=== PATIENT | male | born 1945 | race Caucasian/White ===

== ENCOUNTER → 2019-05-11 15:04 | Outpatient (BNVA) | payer BC, SELFPAY | PROVIDERS: Family Provider Family Medicine; PCP Family Medicine; Visit Provider Orthopaedic Surgery | DX: M17.11 Unilateral primary osteoarthritis, right knee (principal) | CPT/HCPCS: 73560; 73565 ==

== ENCOUNTER 2019-06-20 08:52 | Outpatient (CLI) | payer BC, SELFPAY ==
--- NOTE | 2019-06-20 09:15 | XR_ITS ---
WS: [id number] PROCEDURE: XR chest 2V* [id number] CLINICAL INFORMATION: SHORTNESS OF BREATH COMPARISON: May 02, 2016 FINDINGS: Heart: Cardiomegaly. Lungs: Both lungs are well aerated. Mild chronic emphysematous changes. No acute pulmonary infiltrate s. Bones: Mild thoracic curve convex left. Mild thoracic kyphosis. Ankylosis thoracic spine. XR/XR chest 2V* [id number] IMPRESSION: 1. Stable cardiomegaly. 2. No acute pulmonary infiltrates.
== END 2019-06-20 08:53 | disposition home or self-care (01) ==
PROVIDERS: Family Provider Family Medicine; PCP Family Medicine; Visit Provider Nurse Practitioner Family
DX: R06.02 Shortness of breath (principal); I51.7 Cardiomegaly
CPT/HCPCS: 71046

== ENCOUNTER 2019-07-14 07:52 | Outpatient (CLI) | payer BC, SELFPAY ==
--- NOTE | 2019-07-14 08:04 | USCV_ITS ---
Desmond David Age: 74 Gender: M : 1945 Exam Date: 07/14/2019 08:13 Ordering Phys: Villa Carreno MD Technologist: Elizabeth Horton Exam Location: [facility] [place] Indication: CARDIOMEGALY BP: 161 / 62 HR: 56 Rhythm: Sinus Technical Quality: Adequate MEASUREMENTS (Male / Female) Normal Values 2D ECHO LV Diastolic Diameter PLAX 5.3 cm 4.2 - 5.9 / 3.9 - 5.3 cm LV Systolic Diameter PLAX 3.4 cm IVS Diastolic Thickness 1.1 cm 0.6 - 1.0 / 0.6 - 0.9 cm IVS Systolic Thickness 1.8 cm LVPW Diastolic Thickness 1.1 cm 0.6 - 1.0 / 0.6 - 0.9 cm LVPW Systolic Thickness 1.7 cm LVOT Diameter 2.0 cm LV Ejection Fraction 2D Teich 65.0 % LV Ejection Fraction MOD 2C 64.3 % LV Ejection Fraction 2C AL 66.0 % LA Diameter 3.4 cm LA Width 3.8 cm LA Height 4.6 cm RA Width 2.8 cm RA Height 3.9 cm Aorta at Sinotubular Diameter 3.2 cm M-MODE LV Diastolic Diameter MM 5.8 cm 4.2 - 5.9 / 3.9 - 5.3 cm LV Systolic Diameter MM 3.4 cm LV Ejection Fraction MM Teich 71.6 % IVS Diastolic Thickness MM 1.0 cm 0.6 - 1.0 / 0.6 - 0.9 cm IVS Systolic Thickness MM 1.8 cm LVPW Diastolic Thickness MM 1.1 cm 0.6 - 1.0 / 0.6 - 0.9 cm LVPW Systolic Thickness MM 1.8 cm Aortic Annulus Diameter 3.3 cm LA Ao Ratio MM 1.0 MV E Point Septal Separation 0.5 cm DOPPLER AV Peak Velocity 136.0 cm/s LVOT Peak Velocity 94.0 cm/s AV Area Cont Eq vti 2.5 cm squared AV Area Cont Eq pk 2.3 cm squared MV Area PHT 3.9 cm squared Mitral E to A Ratio 1.3 MV E' Velocity 11.0 cm/s Mitral E to MV E' Ratio 7.9 Mitral E to LV E' Lateral Ratio 8.8 Mitral E to LV E' Septal Ratio 7.3 TV Peak E Velocity 75.0 cm/s Right Atrial Pressure 3.0 mmHg PV Peak Velocity 108.0 cm/s RV Acceleration Time 0.1 s RV Ejection Time 0.4 s RV AcT/ET 0.3 FINDINGS Left Ventricle Normal left ventricular cavity size. Mild left ventricular hypertrophy. Normal left ventricular systolic function. No regional wall motion abnormalities. Grade I/IV diastolic dysfunction (abnormal relaxation filling pattern), normal to mildly elevated filling pressures. Left ventricular ejection fraction is estimated at 65 %. Right Ventricle Normal right ventricular size and systolic function. Right Atrium The right atrium is normal in size. Left Atrium The left atrium is normal in size. Mitral Valve Structurally normal mitral valve. Mild mitral valve regurgitation. Aortic Valve Structurally normal aortic valve without significant sclerosis or stenosis. There is no aortic regurgitation. Tricuspid Valve Structurally normal tricuspid valve without significant stenosis or regurgitation. Pulmonary artery systolic pressure is normal. Pulmonic Valve Pulmonic valve not well visualized. Pericardium Normal pericardium without effusion. Aorta Normal ascending aorta dimension. CONCLUSIONS Normal left ventricular cavity size. Mild left ventricular hypertrophy. Normal left ventricular systolic function. No regional wall motion abnormalities. Grade I/IV diastolic dysfunction (abnormal relaxation filling pattern), normal to mildly elevated filling pressures. Left ventricular ejection fraction is estimated at 65 %. Structurally normal mitral valve. Mild mitral valve regurgitation. There are no prior echocardiogram studies to compare. Dr. Wood Duncan MD (Electronically Signed) Final Date: 14 July 2019 12:34 S
== END 2019-07-14 07:53 | disposition home or self-care (01) ==
PROVIDERS: Family Provider Nurse Practitioner Family; PCP Nurse Practitioner Family; Visit Provider Family Medicine
DX: I51.7 Cardiomegaly (principal); I34.0 Nonrheumatic mitral (valve) insufficiency
CPT/HCPCS: 93306

== ENCOUNTER 2019-10-19 08:48 | Outpatient (CLI) | payer BC, SELFPAY ==
[2019-10-19 09:01] VITALS: BMI 30.7
--- NOTE | 2019-10-19 09:09 | ECG_ITS ---
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 Interpretive Statements NAME OF STUDY: LEXISCAN SESTAMIBI STRESS TEST INDICATION: Chest Pain PROCEDURE: At the baseline, the blood pressure was 197/64 mmHg with a heart rate of 60 bpm. The electrocardiogram showed sinus rhythm with PACs, normal axis. Nonspecific T wave abnormality. The Lexiscan was infused over a period of 20 seconds. A total of 0.4 milligrams of Lexiscan was infused. The stress phase was continued for a total of 5 minutes. Heart rate at the end of the stress phase was 66 bpm with a blood pressure of 185/75 mmHg. The EKG at the peak infusion revealed sinus rhythm with PACs with no significant ST-T wave changes. Sestamibi was injected 20 seconds after the Lexiscan infusion. Blood pressure at the end of the recovery phase was 178/74 mmHg with a heart rate of 64 beats per minute. CONCLUSION: 1. No significant EKG changes with the LexiScan infusion. 2. No LexiScan induced chest pain or cardiac arrhythmia. 3. Normal blood pressure and heart rate response. 4. Sestamibi/sestamibi perfusion scan pending; see separate report. Electronically Signed On 10-19-2019 16:44:45 CDT by Sonia Subramanian M.D. [id number]
--- NOTE | 2019-10-19 09:10 | NMCV_ITS ---
NM christianne perf SPECT r/s* [id number] David Logan Age: 74 Gender: M : 1945 Exam Date: 10/19/2019 10:29 Ordering Phys: Maribel Self NP Technologist: OSKAR Gonzalez Exam Location: [facility] [place] Indications: SOB PRE OP CLEARANCE STRESS TEST Please see separate stress test report in [facility] for full findings IMAGE PROTOCOL Rest/Stress 1 Lexiscan Day Radiopharmaceutical Dose (mCi) Administration Site Administered by Rest: Tc-99m 10.8 IV OSKAR Simmons Sestamibi Stress:Tc-99m 32.4 IV OSKAR Simmons Sestamibi Rest: 19-Oct-2019 60 Discovery 630 Stress: 19-Oct-2019 30 Discovery 630 0.4mg Lexiscan. Images obtained in supine and prone position. SPECT RESULTS Technical Quality: Excellent Raw Data Analysis: Normal Image Corrections: No attenuation or motion correction applied Summed Stress Score: 1 Summed Rest Score: 0 Summed Difference Score: 1 PERFUSION FINDINGS SPECT images demonstrate homogeneous tracer distribution throughout the myocardium. FUNCTIONAL RESULTS (calculated via Gated SPECT) Stress Image LV EF (%): 58 Stress EDV (mL):107 TID: 0.87 Stress ESV (mL):45 FUNCTIONAL FINDINGS: The left ventricle is normal in size. Transient Ischemia Dilatation of 0.87. There is normal left ventricular systolic function. The left ventricular ejection fraction is normal with a value of 58%. There is normal left ventricular wall thickening. Normal end-diastolic and end-systolic volumes. IMPRESSIONS 1. Myocardial perfusion imaging is normal. 2. Overall left ventricular systolic function is normal without regional wall motion abnormalities. 3. The left ventricular ejection fraction is normal with a value of 58%. 4. This study suggests a low likelihood of angiographically significant coronary artery disease. Sonia Subramanian MD (Electronically Signed) Final Date: 19 October 2019 17:53 S
[2019-10-19 11:17] VITALS: BP 185/70; PULSE 72
[2019-10-19] MEDS: regadenoson 0.4 Mg/5 ml Syringe IVP (11:17)
== END 2019-10-19 08:49 | disposition home or self-care (01) ==
LOC: CDL 08:48
PROVIDERS: Family Provider Nurse Practitioner Family; PCP Nurse Practitioner Family; Visit Provider Internal Medicine Cardiovascular Disease
DX: R06.02 Shortness of breath (principal)
CPT/HCPCS: 78452; 93017; A9500; J2785

== ENCOUNTER → 2022-10-19 10:47 | Outpatient (BNVA) | payer MEDICARE, SELFPAY | PROVIDERS: PCP Registered Nurse; Visit Provider Registered Nurse | DX: E11.9 Type 2 diabetes mellitus without complications (principal); I10 Essential (primary) hypertension | CPT/HCPCS: 80053; 80061; 83036; 85025 ==

== ENCOUNTER → 2022-10-20 09:28 | Outpatient (BNVA) | payer MEDICARE, SELFPAY | PROVIDERS: PCP Registered Nurse; Visit Provider Registered Nurse | DX: E11.9 Type 2 diabetes mellitus without complications (principal); I10 Essential (primary) hypertension; Z76.89 Persons encountering health services in other specified circumstances; R46.89 Other symptoms and signs involving appearance and behavior; Z71.3 Dietary counseling and surveillance | CPT/HCPCS: 81000; 82043 ==

== ENCOUNTER 2023-03-08 10:21 | Inpatient (IN) | payer MEDICARE, SELFPAY ==
[2023-03-08] VITALS (23 sets, daily range): BP systolic 119–160; BP diastolic 47–95; PULSE 51–70; RESP 8–21; TEMP 36.3–36.7; O2SAT 94–100; BMI 27.2
[2023-03-08 10:53] LABS: Glucose Point of Care 194 mg/dL (70-110)
[2023-03-08 11:38] LABS: Basophils % 0.3 %; Eosinophils % 0.1 %; Hematocrit 27.7 % (37-53); Lymphocytes # 1.4 10^3/uL (0.8-4.8); Lymphocytes % 10.7 %; Mean Corpuscular HGB Conc 33.2 g/dL (30-55); Mean Corpuscular Hemoglobin 28.8 pg (27-33); Mean Corpuscular Volume 86.8 fl (82-101); Mean Platelet Volume 9.8 fL (7.4-10.4); Monocytes # 0.3 10^3/uL (0.2-0.9); Monocytes % 2.5 %; Neutrophils # 11.49 10^3/uL (1.8-7.7); Neutrophils % 85.4 %; Nucleated Red Blood Cells % 0 %; Platelet Count 322 10^3/cmm (157-399); Red Blood Count 3.19 10^6/uL (3.85-5.65); Red Cell Distribution Width 13.4 % (12.1-15.1); White Blood Count 13.45 10^3/uL (3.29-11.43)
[2023-03-08 12:10] LABS: Alanine Aminotransferase 8 U/L (0-41); Albumin Level 3.9 g/dL (3.5-5.2); Alkaline Phosphatase 70 U/L (40-130); Anion Gap 29.2 (5-19); Aspartate Amino Transferase 9 U/L (0-40); Blood Urea Nitrogen 77 mg/dL (8-23); Calcium 8.9 mg/dL (8.5-10.5); Carbon Dioxide 14 mmol/L (22-29); Chloride 97 mmol/L (98-107); Globulin 3.3 g/dL (1.3-4.6); Glucose 197 mg/dL (65-115); Osmolality Calculated 304 mOsm/kg (285-295); Sodium 133 mmol/L (136-145); Total Bilirubin 0.2 mg/dL (0.15-1.2); Total Protein 7.2 g/dL (6.6-8.7)
[2023-03-08 12:23] LABS: Potassium 7.2 mmol/L (3.5-5.1)
--- NOTE | 2023-03-08 12:33 | ECG_ITS ---
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 Measurements Intervals [place] Rate: 53 P: 68 CT: 279 QRS: -21 QRSD: 98 T: 57 QT: 472 QTc: 447 Interpretive Statements SINUS BRADYCARDIA WITH FIRST DEGREE AV BLOCK BORDERLINE LEFT AXIS DEVIATION [QRS AXIS < -20] No previous ECG available for comparison Electronically Signed On 03-08-2023 13:43:16 LEATHER BELT SHAPER by oSnia Subramanian M.D. [id number]
--- NOTE | 2023-03-08 12:34 | W.ED.WEAKNES ---
HPI - Weakness General: Chief complaint: Weakness Stated complaint: disoriented, has diabetes Time Seen by Provider: 03/08/23 12:34 Source: patient Mode of arrival: ambulatory History of Present Illness: 77-year-old male presents emergency room with family. Patient has a history of diabetes mellitus morning he seemed to be acting rather strangely family thought it was hypoglycemia they were able to get him to recover after he ate however he still generally does not feel well. On arrival here he is awake and alert answers questions properly gives a good history. He is on glimepiride and metformin. He states he is feeling much better he denies chest pain or abdominal pain. He states he has been urinating a lot less than usual. He does not check his blood sugars regularly. Denies any shortness of breath cough vomiting or diarrhea he was nauseous earlier today. MD Complaint: generalized weakness Onset (ago): hour(s) Associated symptoms: Denies chest pain, chills, confusion, melena, decreased appetite, diaphoresis, dysuria, easy bruising, fever(s), headache(s), myalgias, nausea, rash, short of breath, syncope or vomiting Review of Systems Const: Denies: fever(s), chills or diaphoresis Card: Denies: chest pain or syncope Resp: Denies: dyspnea GI: Denies: abdominal pain, nausea, vomiting or melena : Denies: dysuria, urinary frequency or urinary urgency Musc: Denies: neck pain or back pain Skin/Breast: Denies: rash Neuro: Denies: headache(s) or confusion Иван/Lymph: Denies: easy bruising PFSH ED PFSH: Medical History Hypertension Type 2 diabetes mellitus Family History Father Hypertension CAD (coronary artery disease) Heart disease Brother Heart disease Denies family history of Diabetes Clotting disorder Dementia Hyperlipidemia Psychiatric illness Chronic kidney disease (CKD) Suicide Anesthesia complication Bleeding disorder Family history of premature coronary artery disease Lung disease Cancer Stroke Social History Smoking and tobacco/nicotine status: former use of tobacco/nicotine Quit status (tobacco/nicotine): has quit using Year quit tobacco: 1986 Alcohol intake: never Substance/Drug Use: never Adopted: No Caregiver/support person: No Lives independently: No Household members: spouse Marital status: service: No Current occupational status: retired Sexually active: Yes Do you think of yourself as: Straight/Heterosexual Current gender identity: Male Physical Exam Const: COMMON NORMALS: no acute distress GENERAL APPEARANCE: cooperative and comfortable ORIENTATION/CONSCIOUSNESS: Yes awake, Yes oriented to person, Yes oriented to place and Yes oriented to time HENMT: COMMON NORMALS: normocephalic, atraumatic and hearing grossly normal bilaterally HEAD & SCALP: normocephalic and atraumatic Resp: COMMON NORMALS: normal respiratory effort, No retractions, No use of accessory muscles and clear to auscultation bilaterally AUSCULTATION: clear to auscultation bilaterally Cardio: COMMON NORMALS: regular rate, regular rhythm and No murmurs present (Cardio) RATE: regular rate RHYTHM: regular rhythm GI: COMMON NORMALS: Soft to palpation and No hepatosplenomegaly present AUSCULTATION: Yes normoactive bowel sounds PALPATION: Yes Soft to palpation, No Tenderness to palpation present (GI), No Guarding due to palpation present (GI) and Yes No hepatosplenomegaly present Extremity: COMMON NORMALS: normal to inspection, capillary refill normal, no clubbing, cyanosis or edema, no calf tenderness and no pedal edema Neuro: SENSORIUM/ORIENTATION: Yes oriented to person, Yes oriented to place and Yes oriented to time Skin: COMMON NORMALS: no rashes or lesions noted GENERAL SKIN EXAM: no rashes or lesions noted Course Vital Signs: Vital signs: Vital Signs Temperature 97.4 F L 03/08/23 10:43 Pulse Rate 57 L 03/08/23 15:30 Respiratory Rate 18 03/08/23 10:43 Blood Pressure 159/54 03/08/23 15:30 Pulse Oximetry 98 03/08/23 15:30 Oxygen Delivery Me thod Room Air 03/08/23 15:30 MDM - Weakness Medical Decision Making Patient has acute renal failure with severe hyperkalemia. He was treated for his hyperkalemia given IV fluids he has had minimal urine output after several hours of 2 L he only had 50 mils out. He did become hypoglycemic again we are not having him eat because we reported he was having excessive flatus. Dialysis. His blood sugar decreased to 26 he became confused and disoriented resolved immediately after being treated. Medical Records I reviewed the patient's medical records. Lab Data I reviewed the patient's lab results. 03/08/23 11:32 03/08/23 11:32 Laboratory Results WBC 13.45 10^3/uL (3.29-11.43) H 03/08/23 11:32 RBC 3.19 10^6/uL (3.85-5.65) L 03/08/23 11:32 Hgb 9.20 g/dL (11.27-16.99) L 03/08/23 11:32 Hct 27.7 % (37-53) L 03/08/23 11:32 MCV 86.8 fl (82-101) 03/08/23 11:32 MCH 28.8 pg (27-33) 03/08/23 11:32 MCHC 33.2 g/dL (30-55) 03/08/23 11:32 RDW 13.4 % (12.1-15.1) 03/08/23 11:32 Plt Count 322 10^3/cmm (157-399) 03/08/23 11:32 MPV 9.8 fL (7.4-10.4) 03/08/23 11:32 Neut % (Auto) 85.4 % 03/08/23 11:32 Lymph % (Auto) 10.7 % 03/08/23 11:32 [place] % (Auto) 2.5 % 03/08/23 11:32 Eos % (Auto) 0.1 % 03/08/23 11:32 Baso % (Auto) 0.3 % 03/08/23 11:32 Reticulocyte % (Auto) 1.1 % (0.5-2.0) 03/08/23 12:55 Neut # (Auto) 11.49 10^3/uL (1.8-7.7) H 03/08/23 11:32 Lymph # (Auto) 1.4 10^3/uL (0.8-4.8) 03/08/23 11:32 [place] # (Auto) 0.3 10^3/uL (0.2-0.9) 03/08/23 11:32 Eos # (Auto) 0.0 10^3/uL (0.0-0.8) 03/08/23 11:32 Baso # (Auto) 0.0 10^3/uL (0.0-0.1) 03/08/23 11:32 Nucleated RBC % (auto) 0 % 03/08/23 11:32 Nucleated RBCs # 0.0 /100WBC 03/08/23 11:32 PT 13.50 SECONDS (12.1-14.9) 03/08/23 12:37 INR 1.00 (0.8-1.2) 03/08/23 12:37 APTT 35.0 SECONDS (23.9-36.7) 03/08/23 12:37 Specimen Type Arterial 03/08/23 12:42 Sample Site Radial, left 03/08/23 12:42 ABG pH 7.22 (7.35-7.45) L 03/08/23 12:42 ABG pCO2 31.6 mmHg (35-45) L 03/08/23 12:42 ABG pO2 109.0 mmHg (80.0-100.0) H 03/08/23 12:42 ABG PO2/FiO2 Ratio 0 03/08/23 12:42 ABG HCO3 12.9 mmol/L (22-26) L 03/08/23 12:42 ABG O2 Saturation 99.1 03/08/23 12:42 ABG Base Excess -13.7 mmol/L (-2.0-2.0) L 03/08/23 12:42 Ha Test Pos 03/08/23 12:42 A-a O2 Gradient Not Reportable 03/08/23 12:42 Hematocrit 28.5 % (42-52) L 03/08/23 12:42 Hgb O2 Saturation 97.4 % (95-100) 03/08/23 12:42 Carboxyhemoglobin 1.1 %THgb (0.4-20.1) 03/08/23 12:42 Methemoglobin 0.6 % (0.4-1.5) 03/08/23 12:42 Total Hemoglobin 9.3 g/dL (14-18) L 03/08/23 12:42 Sodium 131.0 mmol/L (131-143) 03/08/23 12:42 Potassium 6.2 mmol/L (3.5-5.0) H 03/08/23 12:42 Glucose 168.0 mg/dL (70-115) H 03/08/23 12:42 Ionized Calcium 1.2 mmol/L (1.1-1.4) 03/08/23 12:42 O2 Delivery Device Room air 03/08/23 12:42 FiO2 21.0 % 03/08/23 12:42 Assistant Printer Floor Covering ID Marcela 03/08/23 12:42 Sodium 133 mmol/L (136-145) L 03/08/23 11:32 Potassium 7.2 mmol/L (3.5-5.1) H* 03/08/23 11:32 Chloride 97 mmol/L (98-107) L 03/08/23 11:32 Carbon Dioxide 14 mmol/L (22-29) L 03/08/23 11:32 Anion Gap 29.2 (5-19) H 03/08/23 11:32 BUN 77 mg/dL (8-23) H 03/08/23 11:32 Creatinine 8.4 mg/dL (0.7-1.2) H* 03/08/23 11:32 GFR Calculation Not Reportable 03/08/23 11:32 Glucose 197 mg/dL (65-115) H 03/08/23 11:32 POC Glucose 194 mg/dL (70-110) H 03/08/23 10:46 Estimat Average Glucose 166 03/08/23 12:55 Calculated Osmolality 304 mOsm/kg (285-295) H 03/08/23 11:32 Lactic Acid 6.1 mmol/L (0.5-2.2) H* 03/08/23 12:55 Calcium 8.9 mg/dL (8.5-10.5) 03/08/23 11:32 Magnesium 2.0 mg/dL (1.7-2.3) 03/08/23 12:55 Iron 60 ug/dL (59-158) 03/08/23 12:55 TIBC 274 mcg/dl 03/08/23 12:55 % Saturation 21.8 % (20-50) 03/08/23 12:55 Unsat Iron Binding 214 ug/dL (112-347) 03/08/23 12:55 Ferritin 161 ng/mL (30-400) 03/08/23 12:55 Total Bilirubin 0.2 mg/dL (0.15-1.2) 03/08/23 11:32 AST 9 U/L (0-40) 03/08/23 11:32 ALT 8 U/L (0-41) 03/08/23 11:32 Alkaline Phosphatase 70 U/L (40-130) 03/08/23 11:32 Total Protein 7.2 g/dL (6.6-8.7) 03/08/23 11:32 Albumin 3.9 g/dL (3.5-5.2) 03/08/23 11:32 Globulin 3.3 g/dL (1.3-4.6) 03/08/23 11:32 Lipase 36 U/L (13-60) 03/08/23 12:55 Serum Ketones Negative (Negative) 03/08/23 12:55 All radiology interpretation(s) finalized by discharge Discharge Plan Discharge Admit Provider: Nancy Navas Condition: Stable Coding Level of Care Code ED 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
[2023-03-08 12:53] LABS: ABG PCO2 31.6 mmHg (35-45); ABG PH Result 7.22 (7.35-7.45); Arterial Blood Gas Hematocrit 28.5 % (42-52); Base Excess ABG -13.7 mmol/L (-2.0-2.0); Blood Gas Allen Test Pos; Blood Gas Operator Identificat WALCI; Blood Gas Sample Site Radial, left; Blood Gas Sample Type Arterial; Carboxyhemoglobin 1.1 %THgb (0.4-20.1); HCO3 ABG 12.9 mmol/L (22-26); HGB O2 Sat 97.4 % (95-100); Ionized Calcium Level - ABG 1.2 mmol/L (1.1-1.4); Methemoglobin 0.6 % (0.4-1.5); Oxygen Device ROOM AIR; Oxygen Saturation ABG 99.1; PO2 FiO2 Ratio Arterial Blood 0; Potassium Level - ABG 6.2 mmol/L (3.5-5.0); Total Hemoglobin 9.3 g/dL (14-18)
--- NOTE | 2023-03-08 13:03 | US_ITS ---
WS: [id number] RENAL ULTRASOUND HISTORY: LYNN COMPARISON: None available. TECHNIQUE: 2-D and color Doppler imaging of the kidney submitted. Right kidney: 11.4 cm x 6.5 cm x 7.1 cm. Cortex: 1.2 cm Loss of the corticomedullary differentiation. Renal cortex is mildly thickened and the kidney is hypo echoic. No obstruction or mass. No adjacent fluid. Left kidney: 11.9 cm x 5.5 cm x 6.1 cm. Cortex: 1.3 cm Loss of the normal corticomedullary differentiation. Renal cortex is mildly thickened and hypoechoic. Slightly greater involvement of the superior pole. Aorta: Normal. Urinary Bladder: Not distended. IMPRESSION: 1. Abnormal kidneys. Kidneys are enlarged and hypoechoic without obstruction. Differential includes b ilateral pyelonephritis, lymphoma, acute interstitial/glomerulonephritis. Additional etiologies to co nsider renal vein thrombosis. There is a more focal thickening involving the superior pole of the LEF T kidney. 2. No hydronephrosis.
[2023-03-08] MEDS: sodium bicarbonate 8.4% 1 mEq/mL 50mL Syr 100 MEQ IVP ×2 (13:26→21:27)
[2023-03-08] MEDS: sodium polystyrene sulfonate 15 gm/60 mL Btl 30 GM PO ×2 (13:26→21:27)
[2023-03-08] MEDS: sodium chloride 0.9% 1,000 ML 999 ML IV ×2 (13:27→15:22)
[2023-03-08 13:29] LABS: Lipase 36 U/L (13-60)
--- NOTE | 2023-03-08 13:32 | P.HP_ITS ---
Providers/Chief Complaint Primary Care Provider: ELLIE Asif Chief Complaint: disoriented, has diabetes History of Present Illness David Logan is a 77 year old male with past medical history of osteoarthritis, hypertension, type 2 diabetes mellitus presented to the hospital today for confusion and hypoglycemia. Family noted patient was confused and gave him something to drink. Blood sugar on arrival 194. Blood sugar was not checked at home. Patient was not acting like himself as per family and for suspicion of hypoglycemia they gave him a sugary drink. Patient is on glimepiride and metformin at home. He recently saw Dr. Taylor to establish primary care to obtain refills for his medications. He stated that he was seeing an [facility] previously but does not want to go there anymore. He also has stopped going to see cardiology. Today on arrival labs show sodium 133, potassium 7.2, creatinine 8.4. Lactic acid 6.1. pH 7.22, bicarb 12.9. UA has been requested. WBC 13.45, hemoglobin 9.2. Previously in October when he saw primary care to establish care microalbumin creatinine ratio was 1548, 2+ urine protein, creatinine 1.9, BUN 26, hemoglobin A1c 7.0. Daughters present at bedside. Patient states he has been feeling fine for the most part but lately has been very fatigued. He has been struggling with LE e roldan for past few months. He would like to be DNR/DNI. Denies blood in urine, chest pain, sob, abdominal pain, flank pain. Does endorse some back pain at times. Uses a walker to ambulate. Last urine was 9.30 AM today. Has had low urine output over last few days. Denies a hx of hypercoagulable condition, kidney disease. ED course: On arrival BP 125/60, respirate 18, pulse 51, temperature 97.4, sat urating 99% on room air. Potassium noted to be 7.2. Patient given a liter normal saline bolus, regular insulin 10 units, an amp of bicarb, Kayexalate 30 g, 10 mg albuterol inhalation, calcium chloride 2 g IV push once. Nephrology consulted. ICU bed requested. Renal ultrasound ordered. Medications/Allergies Home Medications Medication Instructions Recorded Confirmed Last Taken Type aspirin 81 mg tablet,delayed 81 mg PO QAM 05/11/19 03/08/2323 History release multivitamin 1 tab PO QAM 05/11/19 03/08/23 03/08/23 History glimepiride 4 mg tablet 4 mg PO BID 90 days #180 tabs 10/19/22 03/08/23 03/08/23 Rx omega 8-ocw-icj-fish oil 1,200 mg 1 cap PO DAILY 10/19/22 03/08/23 03/08/23 History (144 mg-216 mg) capsule (Fish Oil) metformin 500 mg tablet 1,000 mg PO BID 90 days #360 tabs 01/27/23 03/08/23 03/08/23 Rx bisoprolol 2.5 1 tab PO DAILY 03/08/23 03/08/23 03/08/23 History mg-hydrochlorothiazide 6.25 mg tablet calcium carbonate 600 mg calcium 600 mg PO DAILY 03/08/23 03/08/23 03/08/23 History (1,500 mg) tablet (Calcium) garlic 100 mg tablet 100 mg PO DAILY 03/08/23 03/08/23 03/08/23 History rosuvastatin 40 mg tablet 40 mg PO DAILY 03/08/23 03/08/23 03/08/23 History valsartan 320 mg tablet 320 mg PO DAILY 03/08/23 03/08/23 03/08/23 History vitamins A,C,W-ubid-kgebnj 4,296 1 cap PO DAILY 03/08/23 03/08/23 03/08/23 History mcg-226 mg-90 mg capsule (PreserVision AREDS) Allergies Allergy/AdvReac Type Severity Reaction Status Date / Time No Known Allergies Allergy Verified 10/19/22 09:37 PFSH Acute PFSH: Medical History (Updated 03/08/23 @ 14:03 by Nancy Navas MD) Hypertension Type 2 diabetes mellitus Family History Father Hypertension CAD (coronary artery disease) Heart disease Brother Heart disease Denies family history of Diabetes Clotting disorder Dementia Hyperlipidemia Psychiatric illness Chronic kidney disease (CKD) Suicide Anesthesia complication Bleeding disorder Family history of premature coronary artery disease Lung disease Cancer Stroke Social History Smoking and tobacco/nicotine status: former use of tobacco/nicotine Quit status (tobacco/nicotine): has quit using Year quit tobacco: 1986 Alcohol intake: never Substance/Drug Use: never Adopted: No Caregiver/support person: No Lives independently: No Household members: spouse Marital status: service: No Current occupational status: retired Sexually active: Yes Do you think of yourself as: Straight/Heterosexual Current gender identity: Male Vitals/I&O/Wt Last Vital Signs Temp 97.4 F L 03/08/23 10:43 Pulse 51 L 03/08/23 10:43 Resp 18 03/08/23 10:43 BP 125/60 03/08/23 10:43 Pulse Ox 99 03/08/23 10:43 O2 Del Method Room Air 03/08/23 10:43 Weight last 48 hrs Weight 86.183 kg Physical Exam Narrative: General: Alert oriented x3, patient seen laying in bed appearing comfortable HEENT: Normocephalic, atraumatic, EOMI, breathing room air Cardio: Regular rate rhythm, normal S1-S2, Respiratory: Good bilateral air entry, no wheezes no rhonchi appreciated GI: Abdomen soft, nontender, nondistended, bowel sounds + Behavior: Appropriate and cooperative Extremities: Non pitting edema b/l LE upto thighs Data 03/08/23 11:32 03/08/23 11:32 Micro: Microbiology 03/08/23 13:00 Blood Culture - Preliminary Blood SPECIMEN COLLECTED 03/08/23 12:55 Blood Culture - Preliminary Blood SPECIMEN COLLECTED A&P Assessment and plan (1) Type 2 diabetes mellitus: Qualifiers: Diabetes mellitus snf insulin use: without snf use (2) Hypertension: Qualifiers: Hypertension type: essential hypertension Qualified Code(s): I10 - Essential (primary) hypertension (3) Osteoarthritis of right knee: (4) Acute renal failure: (5) Metabolic acidosis: (6) High anion gap metabolic acidosis: (7) Hyperkalemia: (8) Hypoglycemia: (9) Lactic acidosis: (10) Chronic kidney disease: (11) Anuria: Plan #Acute renal failure #Hyperkalemia #Confusion/hypoglycemia prior to arrival #Type 2 diabetes mellitus #High anion gap metabolic acidosis secondary to renal failure #Lactic acidosis #Hypertension #Chronic kidney disease #Anemia possibly 2/2 to chronic disease ? Admit to ICU ? Hold antihypertensives at this time. It seems patient was on amlodipine 10 mg daily, bisoprolol 2.5, hydrochlorothiazide 6.25 daily. ? Hold antihyperglycemic's glimepiride, metformin at this time ? Check renal ultrasound ? Place Hayes catheter. Monitor urine output ? Patient received 1 amp of bicarb in ER. ? Nephrology consulted ? Dialysis catheter to be placed. General surgery consulted ? Patient may require dialysis if does not start to produce urine. Discussed with associate drafter over the phone. ? We will repeat labs at 3:30 PM. Check BMP, magnesium, phosphorus ? Urinalysis has been requested. ? 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 He recently set up primary care with Dr. Taylor in October 2022. It seems he did not follow-up after getting his refills for his medications. Creatinine at that time was 1.9. He possibly had underlying chronic kidney disease secondary to diabetes anna litus and hypertension. ? We will check blood cultures, sputum culture Gram stain ? Repeat lactic acid ? Check CT abdomen pelvis without contrast - Check iron, tibc, ferritin, retic count, occult blood test - Pt will need GN workup as well. Check C3, C4. May need kidney biopsy at some point. Suspicion for nephrotic syndrome. - Start bicarb drip @ 150 cc/hr - Check chest xray DIet: renal diet, low K DNR/DNI - Discssed with pt, his and his 2 daughters. Patient also discussed with them and final decision is to be DNR/DNI. He understands that with no intervention he may pass away naturally. DVT prophylaxis: Heparin subcu twice daily SCDs Attestations Medical Necessity Statement*: Patient will require greater than 2 midnight stay for management of acute renal failure. 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
[2023-03-08 13:36] LABS: Ketone (Acetest) Serum Negative (Negative)
[2023-03-08] MEDS: insulin regular-human 100 units/1 mL 10 UNIT IVP (13:45)
[2023-03-08 13:51] LABS: Lactic Sepsis W/Reflex 6.1 mmol/L (0.5-2.2)
[2023-03-08 14:21] LABS: Reticulocyte % 1.1 % (0.5-2.0)
[2023-03-08 14:33] LABS: Ferritin 161 ng/mL (30-400); Iron 60 ug/dL (59-158); Percent Saturation 21.8 % (20-50); Total Iron Binding Capacity 274 mcg/dl; Unsaturated Iron Binding 214 ug/dL (112-347)
[2023-03-08 14:51] LABS: Reflex Lactate Order REFLEX LACTIC ORDERD
[2023-03-08] MEDS: calcium chloride 10% Syr 10 mL 2 GM IVP (15:22)
--- NOTE | 2023-03-08 15:32 | XR_ITS ---
WS: [id number] PORTABLE CHEST HISTORY: sob COMPARISON: 06/20/2019 Lung volumes are decreased Small layering LEFT pleural effusion is likely. There is capping over the LEFT apex. Hazy attenuation over the LEFT diaphragm. No pneumothorax. Cardiac size: Moderately enlarged cardiac silhouette. Mediastinum/Aorta: Normal mediastinum. No osseous abnormality seen. IMPRESSION: 1. Small layering LEFT pleural effusion suspected. 2. Moderate cardiomegaly.
--- NOTE | 2023-03-08 15:52 | CTR_ITS ---
PROCEDURE INFORMATION: Exam: CT Chest Without Contrast; Diagnostic Exam date and time: 03/08/2023 4:45 PM Age: 77 years old Clinical indication: Other: Renal failure TECHNIQUE: Imaging protocol: Diagnostic computed tomography of the chest without contrast. Radiation optimization: All CT scans at this facility use at least one of these dose optimization techniques: automated exposure control; mA and/or kV adjustment per patient size (includes targeted exams where dose is matched to clinical indication); or iterative reconstruction. REPORTING DATA: Count of CT and Cardiac NM exams in prior 12 months: This patient has received 0 known CTs and 0 known cardiac nuclear medicine studies in the 12 months prior to the current study. COMPARISON: CR XR chest 1V portable [id number] 03/08/2023 3:36 PM RADIATION DOSE METRICS: Total DLP (mGy-cm): 1013 FINDINGS: Lungs: A small benign calcified granuloma left lung base. No pulmonary parenchymal infiltrate or consolidation. No pulmonary parenchymal mass. Pleural spaces: A small layering posterior pleural effusion is seen on the left. This is associated with small amount of subjacent atelectasis left lung base. No pneumothorax is seen. Heart: Nesf-ti-odsvudas cardiomegaly. Extensive coronary artery calcification. Small amount of calcification of the aortic root/aortic valve region. No pericardial effusion. Lymph nodes: Unremarkable. No enlarged lymph nodes. Vasculature: Arteriosclerosis of the thoracic aorta, without findings to indicate aneurysm. Pulmonary arteries appear unremarkable for noncontrast exam. Bones/joints: Mild thoracic dextroscoliosis. Spondylotic or degenerative change of the thoracic spine. Soft tissues: Unremarkable. PROCEDURE INFORMATION: Exam: CT Abdomen And Pelvis Without Contrast Exam date and time: 03/08/2023 4:45 PM Age: 77 years old Clinical indication: Other: Renal failure TECHNIQUE: Imaging protocol: Computed tomography of the abdomen and pelvis without contrast. Radiation optimization: All CT scans at this facility use at least one of these dose optimization techniques: automated exposure control; mA and/or kV adjustment per patient size (includes targeted exams where dose is matched to clinical indication); or iterative reconstruction. REPORTING DATA: Count of CT and Cardiac NM exams in prior 12 months: This patient has received 0 known CTs and 0 known cardiac nuclear medicine studies in the 12 months prior to the current study. COMPARISON: CR XR hip RT 2-3V wo/w pel* [id number] 04/19/2019 9:44 AM RADIATION DOSE METRICS: Total DLP (mGy-cm): 1013 FINDINGS: Liver: Normal. No mass. Gallbladder and bile ducts: Normal. No calcified stones. No ductal dilation. Pancreas: Normal. No ductal dilation. Spleen: Normal. No splenomegaly. Adrenal glands: Normal. No mass. Kidneys and ureters: No urinary tract stone or obstructive uropathy is seen. Bilateral perinephric stranding, which may be age-related with bilateral findings. Correlate with urinalysis otherwise. Kidneys appear unremarkable otherwise for unenhanced exam. Stomach and bowel: Scattered colonic diverticulosis. No CT findings to indicate focal inflammation or diverticulitis. No dilatation of bowel loops or obstruction. No significant or prominent bowel thickening. Appendix: No evidence of appendicitis. Intraperitoneal space: Unremarkable. No free air. No significant fluid collection. No significant ascites. Vasculature: Diffuse atherosclerotic vascular disease of the abdominal aorta and tributaries, without aneurysmal dilatation. This includes at the takeoff of the right renal artery. Lymph nodes: Unremarkable. No enlarged lymph nodes. Urinary bladder: A Hayes catheter is seen within an incompletely distended urinary bladder. Reproductive: Prostate gland is mildly prominent. Bones/joints: Degenerative changes, and particularly lumbar spine. Soft tissues: Bilateral inguinal hernias of fat. Mild diastasis rectus at the umbilicus. CT/[place] [id number] IMPRESSION: 1. A small layering posterior pleural effusion on the left with small amount of subjacent atelectasis left lung base. 2. Kcej-lj-qdqwfazc cardiomegaly with extensive coronary artery calcification. 3. Small benign calcified granuloma left lung base. 4. No acute findings in the chest otherwise. IMPRESSION: 1. Extensive vascular calcification of the abdominal aorta and tributaries, without aneurysmal dilatation. This includes takeoff of the right renal artery. 2. Bilateral perinephric stranding, most likely age related with bilateral findings. Correlate clinically with urinalysis otherwise. Kidneys are otherwise unremarkable for unenhanced exam. 3. Hayes catheter within an incompletely distended urinary bladder. 4. Scattered colonic diverticulosis without CT findings diverticulitis.
[2023-03-08] MEDS: dextrose 50% syringe 50 mL IVP (16:20)
[2023-03-08 16:30] LABS: Estmated Average Glucose 166; Hemoglobin A1C 7.4 % (4.0-6.0)
[2023-03-08 17:02] LABS: Calcium 10.5 mg/dL (8.5-10.5); Chloride 101 mmol/L (98-107); Phosphorus 4.1 mg/dL (2.5-4.5); Sodium 138 mmol/L (136-145)
[2023-03-08 17:05] LABS: Creatinine Urine, Random 91 mg/dL (39-259)
[2023-03-08] MEDS: dextrose 10% 1,000 ML 50 ML IV (17:06)
[2023-03-08 17:10] LABS: Calcium 8.7 mg/dL (8.5-10.5)
[2023-03-08 17:14] LABS: Lactic Acid level (Lactate) 6.1 mmol/L (0.5-2.2)
[2023-03-08] MEDS: sodium bicarbonate 150 MEQ in dextrose 5% 1,000 ML IV (17:16)
--- NOTE | 2023-03-08 17:16 | PC.NURSE ---
AT APPROXIMATELY 1600 NURSE CARMEL DAVE CAME TO THIS NURSE AND STATED THAT THE PT SEEMS CONFUSED AND VERY WEAK WHILE SHE WAS IN THE ROOM. WALDO RN AND VALORIE RN BOTH CAME TO THE BEDSIDE. PT WAS ON A BEDSIDE COMMODE UPON ARRIVAL TO THE ROOM AND APPEARED PALE AND DISORIENTED. AFTER CHECKING BG, IT WAS 26. VERBAL ORDER OF DEXTROSE 50% WAS GIVEN PER JUWAN VILLASENOR. PT GIVEN TWO CONTAINERS OF ORANGE JUICE AND THEN THE ORDERED DEXTROSE. AFTER A FEW MINUTES, PT BG WAS 195. PT VITAL SIGNS WITHIN NORMAL RANGE AT THE TIME.
[2023-03-08 17:20] LABS: Urine Appearance Hazy (CLEAR); Urine Color Straw (Yellow)
[2023-03-08 17:21] LABS: Add Urine Microscopic? YES; Bilirubin Urine Neg (Negative); Blood Urine 2+ (Negative); Glucose Urine UA Norm (Normal); Ketones Urine Negative (Negative); Leukocyte Esterase Urine Negative (Negative); Nitrate Urine Negative (Negative); Protein Urine 3+ (Negative); RBC Urine 0-4 /hpf (0-2); Specific Gravity, Urine 1.015 (1.005-1.030); Squamous Epithelial Cell Urine 0-4 /hpf (0-5); Urobilinogen Urine Norm (Negative); WBC Urine 0-4 /hpf (0-5); pH Urine 5 (5-7)
[2023-03-08 17:22] LABS: Add Urine Culture? No; Amorphous Sediment Urine 3+ /hpf; Bacteria Urine 1+ /hpf; Microalbum Creatinine Ratio Ur 1956 mg/dL (0-20); Microalbumin Random Urine 178 ug/dL (0-20)
[2023-03-08 17:40] LABS: Anion Gap 27.3 (5-19); Blood Urea Nitrogen 77 mg/dL (8-23); Carbon Dioxide 15 mmol/L (22-29); Osmolality Calculated 305 mOsm/kg (285-295); Potassium 5.3 mmol/L (3.5-5.1)
[2023-03-08 17:44] LABS: Glucose 24 mg/dL (65-115)
[2023-03-08 18:07] LABS: Chol HDL Ratio 2.28 mg/dL (1.0-5.00); Cholesterol 82 mg/dL (0-200); Complement C3 127 mg/dL (90-180); HDL Cholesterol 36 mg/dL (60-100); LDL Cholesterol Calculated 23 mg/dL (50-129); LDL HDL Ratio 0.64 RATIO (0.00-3.22); Thyroid Stimulating Hormone 2.95 uIU/mL (0.27-4.20); Triglycerides 117 mg/dL (0-150)
[2023-03-08 18:12] LABS: Glucose Point of Care 102 mg/dL (70-110)
[2023-03-08 18:37] LABS: 25 Hydroxy Vitamin D 29 ng/mL (30-100)
[2023-03-08] MEDS: piperacillin-tazobactam 3.375 GM in sodium chloride 0.9% (plus) 50 ML IV (19:51)
[2023-03-08] MEDS: heparin 5,000 unit/mL INJ 1 mL 5000 UNIT SUBCUT (20:00)
--- NOTE | 2023-03-08 20:37 | P.CONIM_ITS ---
Providers/Reason For Consult Consulting Physician/Specialty*: kommana/Nephrology Reason for Consult*: Acute on CKD Attending Physician: Nancy Navas MD Primary Care Provider: ELLIE Asif History of Present Illness History of Present Illness 77-year-old male with past medical history of hypertension, diabetes, osteoarthritis who was brought to the hospital due to altered mental status and hypoglycemia. Patient reports that he has been having diarrhea with decreased p.o. intake going on for 2 weeks. In the ER patient was noted to be in LYNN with a creatinine of 8.4, potassium was elevated at 7.2 also has elevated lactic acid along with metabolic acidosis. His prior creatinine in October was 1.9. Patient does not follow-up with nephrology as outpatient. He is DNR/DNI. He reports poor appetite fatigue and lower extremity edema. In the ED vital signs are st able he is on room air. Patient received insulin, Kayexalate, dextrose calcium chloride for hyperkalemia and patient now admitted to ICU. UA with 3+ protein, 2+ blood. Renal ultrasound has showed enlarged kidneys, no obstruction . Chest x-ray showed moderate cardiomegaly left pleural effusion. Review of Systems Narrative: OTHER ROS NEGATIVE Medications/Allergies Home Medications Medication Instructions Recorded Confirmed Last Taken Type aspirin 81 mg tablet,delayed 81 mg PO QAM 05/11/19 03/08/23 03/08/23 History release multivitamin 1 tab PO QAM 05/11/19 03/08/23 03/08/23 History glimepiride 4 mg tablet 4 mg PO BID 90 days #180 tabs 10/19/22 03/08/23 03/08/23 Rx omega 8-ydx-nrz-fish oil 1,200 mg 1 cap PO DAILY 10/19/22 03/08/23 03/08/23 History (144 mg-216 mg) capsule (Fish Oil) metformin 500 mg tablet 1,000 mg PO BID 90 days #360 tabs 01/27/23 03/08/23 03/08/23 Rx bisoprolol 2.5 1 tab PO DAILY 03/08/23 03/08/23 03/08/23 History mg-hydrochlorothiazide 6.25 mg tablet calcium carbonate 600 mg calcium 600 mg PO DAILY 03/08/23 03/08/23 03/08/23 History (1,500 mg) tablet (Calcium) garlic 100 mg tablet 100 mg PO DAILY 03/08/23 03/08/23 03/08/23 History rosuvastatin 40 mg tablet 40 mg PO DAILY 03/08/23 03/08/23 03/08/23 History valsartan 320 mg tablet 320 mg PO DAILY 03/08/23 03/08/23 03/08/23 History vitamins A,C,X-ogvw-femqzj 4,296 1 cap PO DAILY 03/08/23 03/08/23 03/08/23 History mcg-226 mg-90 mg capsule (PreserVision AREDS) Allergies Allergy/AdvReac Type Severity Reaction Status Date / Time No Known Allergies Allergy Verified 10/19/22 09:37 Current Medications Generic Name Dose Route Start Last Admin Trade Name Freq PRN Reason Stop Dose Admin Heparin Sodium (Porcine) 5,000 unit 03/08/23 20:00 03/08/23 20:15 Heparin 5,000 Unit/Ml Inj 1 Ml SUBCUT Not Given Q12H OK Sodium Bicarbonate 150 meq/ 1,150 mls @ 150 mls/hr 03/08/23 15:30 03/08/23 17 :16 Dextrose IV 150 mls/hr .Q7H40M OK Administration Dextrose 1,000 mls @ 50 mls/hr 03/08/23 16:30 03/08/23 17:06 D10w IV 50 mls/hr .Q20H OK Administration Piperacillin Sod/Tazobactam 50 mls @ 12.5 mls/hr 03/08/23 19:00 03/08/23 19:51 Sod 3.375 gm/ Sodium Chloride IV 12.5 mls/hr Q12H OK Administration PFSH Acute PFSH: Medical History Hypertension Type 2 diabetes mellitus Family History Father Hypertension CAD (coronary artery disease) Heart disease Brother Heart disease Denies family history of Diabetes Clotting disorder Dementia Hyperlipidemia Psychiatric illness Chronic kidney disease (CKD) Suicide Anesthesia complication Bleeding disorder Family history of premature coronary artery disease Lung disease Cancer Stroke Social History Smoking and tobacco/nicotine status: former use of tobacco/nicotine Quit status (tobacco/nicotine): has quit using Year quit tobacco: 1986 Alcohol intake: never Substance/Drug Use: never Adopted: No Caregiver/support person: No Lives independently: No Household members: spouse Marital status: service: No Current occupational status: retired Sexually active: Yes Do you think of yourself as: Straight/Heterosexual Current gender identity: Male Vitals/I&O/Wt Last Vital Signs Temp 98.0 F 03/08/23 17:00 Pulse 62 03/08/23 20:00 Resp 16 03/08/23 20:00 BP 124/95 03/08/23 20:00 Pulse Ox 97 03/08/23 20:00 O2 Del Method Room Air 03/08/23 18:00 03/08/23 03/08/23 03/08/23 06:59 14:59 22:59 Intake Total 1000 / 1000 Balance 1000 / 1000 Weight last 48 hrs Weight 86.183 kg Physical Exam Narrative: Awake, alert no distress s1s2 rrr per report Lungs clear per report 2+ edema Urinary Catheter Management: Hayes: Cath Placed During This Visit: yes Reason for Continuing Indwelling Catheter: Accurate Measurement of Urinary Output in Critically Ill Patients Urinary Catheter Date of Insertion: 03/08/23 Data 03/08/23 11:32 03/08/23 20:01 Micro: Microbiology 03/08/23 13:00 Blood Culture - Preliminary Blood SPECIMEN COLLECTED 03/08/23 12:55 Blood Culture - Preliminary Blood SPECIMEN COLLECTED A&P Assessment and plan (1) Chronic kidney disease: (2) Acute renal failure: Plan 1. Acute on chronic kidney disease stage 4: Last known creatinine was 1.9 in October 2022. Now has severe LYNN with a creatinine of 8 associated with metabolic acidosis and severe hyperkalemia. -I suspect there is some progression of CKD but also have superimposed prerenal component from recent diarrhea and decreased p.o. intake. We will also do serological work-up for GN given enlarged kidneys on ultrasound. Check CK level -Serologies ordered. If no improvement with volume resuscitation may need renal biopsy -Placed on bicarbonate drip, monitor closely -Patient agreeable for renal replacement therapy if indicated 2. Hyperkalemia: Status post medical management, repeat potassium is 5.3. Continue with low K diet 3. Metabolic acidosis: Continue bicarbonate drip, has lactic acidosis and LYNN 4. History of diabetes: No hypoglycemic, 5. History of hypertension: Blood pressure controlled, holding meds including HCTZ 6. Anemia: Monitor, check iron studies Patient evaluated using virtual cart. Time spent 45 minutes Consult Attestations Medical Necessity Statement: per medicine team Coding Level of Care Code Acute Code for Chg Fwd Diagnoses Chronic kidney disease N18.9 Acute renal failure N17.9
[2023-03-08 20:39] LABS: Anion Gap 28.7 (5-19); Blood Urea Nitrogen 79 mg/dL (8-23); Calcium 9.7 mg/dL (8.5-10.5); Carbon Dioxide 14 mmol/L (22-29); Chloride 97 mmol/L (98-107); Glucose 145 mg/dL (65-115); Osmolality Calculated 304 mOsm/kg (285-295); Potassium 5.7 mmol/L (3.5-5.1); Sodium 134 mmol/L (136-145)
--- NOTE | 2023-03-08 21:46 | P.PCN_ITS ---
Procedure Note: Procedure: Preoperative diagnosis: Acute renal failure requiring emergent dialysis Postoperative diagnosis: Same Procedure: Placement of Mahurkar catheter in the right femoral vein Surgeon: Dr. Vick Dickson, DO Anesthesia: Local Description of procedure: The patient's right groin was prepped and draped in a sterile manner. 5 mL of 1% lidocaine was infiltrated at the site of planned entry, an introducer needle was used to access the right femoral vein. Guidewire was passed through the introducer needle and the introducer needle was removed. Serial dilators were passed over the guidewire after the skin incision was extended using 11 blade and Mahurkar catheter was then passed over the natalya dewire and the guidewire was removed. The catheter was sutured to the skin using 2-0 Ethilon suture. Sterile dressings were applied. Coding Level of Care Code Acute Code for Chg Fwd
--- NOTE | 2023-03-08 21:48 | P.CONIM_ITS ---
Providers/Reason For Consult Consulting Physician/Specialty*: Dr. Vick Dickson, DO/General surgery Reason for Consult*: Temporary hemodialysis catheter placement Attending Physician: Nancy Navas MD Primary Care Provider: ELLIE Asif History of Present Illness History of Present Illness David Logan is a 77 year old male who presents to the hospital with prog ressive weakness and was found to be in acute renal failure. He did not improve adequately with medical management and nephrology requested temporary hemodialysis access for hemodialysis. Review of Systems General: Reports: 10 or more systems reviewed and unremarkable except in HPI and below Medications/Allergies Home Medications Medication Instructions Recorded Confirmed Last Taken Type aspirin 81 mg tablet,delayed 81 mg PO QAM 05/11/19 03/08/23 03/08/23 History release multivitamin 1 tab PO QAM 05/11/19 03/08/23 03/08/23 History glimepiride 4 mg tablet 4 mg PO BID 90 days #180 tabs 10/19/22 03/08/23 03/08/23 Rx omega 7-ddu-hly-fish oil 1,200 mg 1 cap PO DAILY 10/19/22 03/08/23 03/08/23 History (144 mg-216 mg) capsule (Fish Oil) metformin 500 mg tablet 1,000 mg PO BID 90 days #360 tabs 01/27/23 03/08/23 03/08/23 Rx bisoprolol 2.5 1 tab PO DAILY 03/08/23 03/08/23 03/08/23 History mg-hydrochlorothiazide 6.25 mg tablet calcium carbonate 600 mg calcium 600 mg PO DAILY 03/08/23 03/08/23 03/08/23 History (1,500 mg) tablet (Calcium) garlic 100 mg tablet 100 mg PO DAILY 03/08/23 03/08/23 03/08/23 History rosuvastatin 40 mg tablet 40 mg PO DAILY 03/08/23 03/08/23 03/08/23 History valsartan 320 mg tablet 320 mg PO DAILY 03/08/23 03/08/23 03/08/23 History vitamins A,C,S-xway-oxwhyt 4,296 1 cap PO DAILY 03/08/23 03/08/23 03/08/23 History mcg-226 mg-90 mg capsule (PreserVision AREDS) Allergies Allergy/AdvReac Type Severity Reaction Status Date / Time No Known Allergies Allergy Verified 10/19/22 09:37 Current Medications Generic Name Dose Route Start Last Admin Trade Name Gregory PRN Reason Stop Dose Admin Heparin Sodium (Porcine) 5,000 unit 03/08/23 20:00 03/08/23 20:15 Heparin 5,000 Unit/Ml Inj 1 Ml SUBCUT Not Given Q12H OK Sodium Bicarbonate 150 meq/ 1,150 mls @ 150 mls/hr 03/08/23 15:30 03/08/23 17:16 Dextrose IV 150 mls/hr .Q7H40M OK Administration Dextrose 1,000 mls @ 50 mls/hr 03/08/23 16:30 03/08/23 17:06 D10w IV 50 mls/hr .Q20H OK Administration Piperacillin Sod/Tazobactam 50 mls @ 12.5 mls/hr 03/08/23 19:00 03/08/23 19:51 Sod 3.375 gm/ Sodium Chloride IV 12.5 mls/hr Q12H OK Administration PFSH Acute PFSH: Medical History Hypertension Type 2 diabetes mellitus Family History Father Hypertension CAD (coronary artery disease) Heart disease Brother Heart disease Denies family history of Diabetes Clotting disorder Dementia Hyperlipidemia Psychiatric illness Chronic kidney disease (CKD) Suicide Anesthesia complication Bleeding disorder Family history of premature coronary artery disease Lung disease Cancer Stroke Social History Smoking and tobacco/nicotine status: former use of tobacco/nicotine Quit status (tobacco/nicotine): has quit using Year quit tobacco: 1986 Alcohol intake: never Substance/Drug Use: never Adopted: No Caregiver/support person: No Lives independently: No Household members: spouse Marital status: service: No Current occupational status: retired Sexually active: Yes Do you think of yourself as: Straight/Heterosexual Current gender identity: Male Vitals/I&O/Wt Last Vital Signs Temp 97.6 F 03/08/23 21:07 Pulse 62 03/08/23 20:00 Resp 16 03/08/23 20:00 BP 124/95 03/08/23 20:00 Pulse Ox 97 03/08/23 20:00 O2 Del Method Room Air 03/08/23 18:00 03/08/23 03/08/23 03/08/23 06:59 14:59 22:59 Intake Total 1000 / 1000 Balance 1000 / 1000 Weight last 48 hrs Weight 190 lb Physical Exam Narrative: General : Patient is well developed , no acute distress, oriented x3 Head : Normal cephalic, a-traumatic. Ears : Pinnae and external canal are normal. Hearing is normal. Eyes : PERRLA, Sclera and injection are normal. No conjunctival discharge. Nose : Mucous membranes are without erythema. Throat : buccal mucosa is normal, gums are without significant recession or hypertrophy. Lungs : Equal chest rise bilaterally, no use of accessory muscles, trachea is midline. Cor : Rate and rhythm are normal. Abdomen : Soft, ND, NT, no g/r/m Extremities : No edema, no cyanosis or clubbing, dorsalis pedis pulses are present bilaterally, non-tender to palpation of calves. Upper extremities are normal bilaterally. Back : non-tender to palpation, no CVA tenderness. Neuro : CN II - XII intact, Upper and lower extremities have equal and full strength Urinary Catheter Management: Hayes: Cath Placed During This Visit: yes Reason for Continuing Indwelling Catheter: Accurate Measurement of Urinary Output in Critically Ill Patients Urinary Catheter Date of Insertion: 03/08/23 Data 03/08/23 11:32 03/08/23 20:01 Micro: Microbiology 03/08/23 18:50 Occult Blood (FIT) - Final Stool Routine Collection 03/08/23 13:00 Blood Culture - Preliminary Blood SPECIMEN COLLECTED 03/08/23 12:55 Blood Culture - Preliminary Blood SPECIMEN COLLECTED A&P Assessment and plan (1) Acute renal failure: Plan Temporary hemodialysis catheter placement The risks and benefits of the procedure, including but not limited to, bleeding, infection, infection requiring catheter removal antibiotic therapy and repeat surgery, damage to surrounding structures, scar, numbness, pain, pneumothorax requiring thoracostomy tube, were explained to the patient. He is understanding of the risks and wishes to proceed. Procedure was performed in presence of the ICU nurse where a timeout was performed Coding Level of Care Code 54862 Diagnoses Acute renal failure N17.9
[2023-03-08 22:47] LABS: Hepatitis B Surface AB 3.5 (11.5-1000); Hepatitis B Surface Antigen Non-Reactive (Nonreactive)
[2023-03-09] VITALS (20 sets, daily range): BP systolic 112–171; BP diastolic 56–83; PULSE 71–85; RESP 10–22; TEMP 36.8–37.1; O2SAT 84–98
[2023-03-09] MEDS: sodium bicarbonate 150 MEQ in dextrose 5% 1,000 ML IV ×2 (01:33→08:23)
[2023-03-09 04:15] LABS: Basophils % 0.1 %; Eosinophils % 0.3 %; Hematocrit 22.5 % (37-53); Lymphocytes # 1.3 10^3/uL (0.8-4.8); Lymphocytes % 11.9 %; Mean Corpuscular HGB Conc 33.3 g/dL (30-55); Mean Corpuscular Hemoglobin 28.2 pg (27-33); Mean Corpuscular Volume 84.6 fl (82-101); Mean Platelet Volume 10.1 fL (7.4-10.4); Monocytes # 0.8 10^3/uL (0.2-0.9); Monocytes % 7.5 %; Neutrophils # 8.47 10^3/uL (1.8-7.7); Neutrophils % 79.6 %; Nucleated Red Blood Cells % 0 %; Platelet Count 273 10^3/cmm (157-399); Red Blood Count 2.66 10^6/uL (3.85-5.65); Red Cell Distribution Width 13.3 % (12.1-15.1); White Blood Count 10.64 10^3/uL (3.29-11.43)
[2023-03-09 04:33] LABS: ABG PH Result 7.45 (7.35-7.45); Alveolar-Arterial Oxygen Gradi 3.1 mmHg (5-10); Arterial Blood Gas Hematocrit 22.9 % (42-52); Base Excess ABG 4.1 mmol/L (-2.0-2.0); Blood Gas Allen Test Pos; Blood Gas Sample Site Brachial, right; Blood Gas Sample Type Arterial; Carboxyhemoglobin 1.5 %THgb (0.4-20.1); HCO3 ABG 28.5 mmol/L (22-26); HGB O2 Sat 95.3 % (95-100); Ionized Calcium Level - ABG 1.1 mmol/L (1.1-1.4); Methemoglobin 0.7 % (0.4-1.5); Oxygen Saturation ABG 97.4; PO2 ABG 74.1 mmHg (80.0-100.0); PO2 FiO2 Ratio Arterial Blood 0; Potassium Level - ABG 3.1 mmol/L (3.5-5.0); Total Hemoglobin 7.5 g/dL (14-18)
[2023-03-09 04:34] LABS: Alanine Aminotransferase 7 U/L (0-41); Albumin Level 3.1 g/dL (3.5-5.2); Alkaline Phosphatase 54 U/L (40-130); Anion Gap 19.4 (5-19); Aspartate Amino Transferase 10 U/L (0-40); Blood Urea Nitrogen 34 mg/dL (8-23); Calcium 8.7 mg/dL (8.5-10.5); Carbon Dioxide 25 mmol/L (22-29); Chloride 95 mmol/L (98-107); Globulin 2.8 g/dL (1.3-4.6); Glucose 148 mg/dL (65-115); Magnesium 1.8 mg/dL (1.7-2.3); Osmolality Calculated 292 mOsm/kg (285-295); Phosphorus 2.8 mg/dL (2.5-4.5); Potassium 3.4 mmol/L (3.5-5.1); Sodium 136 mmol/L (136-145); Total Bilirubin 0.2 mg/dL (0.15-1.2); Total Protein 5.9 g/dL (6.6-8.7)
[2023-03-09] MEDS: piperacillin-tazobactam 3.375 GM in sodium chloride 0.9% (plus) 50 ML IV ×2 (06:32→18:17)
--- NOTE | 2023-03-09 07:34 | USCV_ITS ---
David Logan Age: 77 Gender: M : 1945 Exam Date: 03/09/2023 08:45 Ordering Phys: Nancy Navas MD Technologist: Raul Olsen [place]am [place] [facility] [place]: chest pain BP: 173 / 67 HR: 81 Rhythm: Sinus Technical Quality: Adequate MEASUREMENTS (Male / Female) Normal Values 2D ECHO LV Diastolic Diameter PLAX 5.1 cm 4.2 - 5.9 / 3.9 - 5.3 cm LV Systolic Diameter PLAX 3.1 cm IVS Diastolic Thickness 1.3 cm 0.6 - 1.0 / 0.6 - 0.9 cm IVS Systolic Thickness 1.6 cm LVPW Diastolic Thickness 1.3 cm 0.6 - 1.0 / 0.6 - 0.9 cm LVPW Systolic Thickness 1.6 cm LVOT Diameter 2.1 cm LV Ejection Fraction 2D Teich 67.8 % LV Ejection Fraction MOD 2C 70.1 % LV Ejection Fraction 2C AL 71.5 % LA Diameter 3.9 cm M-MODE Aortic Annulus Diameter 2.9 cm LA Ao Ratio MM 1.4 MV E Point Septal Separation 1.2 cm DOPPLER AV Peak Velocity 130.0 cm/s LVOT Peak Velocity 98.0 cm/s AV Area Cont Eq vti 2.6 cm squared AV Area Cont Eq pk 2.7 cm squared MV Area PHT 5.0 cm squared Mitral E to A Ratio 0.9 MV E' Velocity 91.0 cm/s Mitral E to LV E' Septal Ratio 13.4 TR Peak Velocity 135.0 cm/s TR Peak Gradient 7.3 mmHg TV Peak E Velocity 119.0 cm/s Right Atrial Pressure 3.0 mmHg Pulmonary Artery Systolic Pressu 10.3 mmHg RV Acceleration Time 0.2 s FINDINGS Left Ventricle Normal LV size and ejection fraction of 67%,( based on contrast echo and MOD). Mild hypokinesia of the basal inferior wall segment. Right Ventricle Possibly of normal size Right Atrium Not visualized well Left Atrium Possibly of normal size Mitral Valve Thickened mitral valve. Aortic Valve Thickened aortic valve. Tricuspid Valve Could not be delineated well Pulmonic Valve Could not be delineated well Pericardium No pericardial effusion. Aorta Normal aortic annulus size. IVC Inferior vena cava not visualized. CONCLUSIONS Normal LV size and ejection fraction of 67%,( based on contrast echo and MOD). Mild hypokinesia of the basal inferior wall segment. The mitral and aortic valves were found to be thickened and nonstenotic Possibly normal RV size Right atrium could not visualized well No pericardial effusion Technically difficult study Dr Timothy Watts MD FAC (Electronically Signed) Final Date: 09 March 2023 20:33 S
--- NOTE | 2023-03-09 07:36 | USCV_ITS ---
David Logan Age: 77 Gender: M : 1945 Exam Date: 03/09/2023 09:13 Ordering Phys: Nancy Navas MD Technologist: Raul Olsen [place]am [place]: [facility] [place]ication: ? renal vein trombus Aortic Velocity @ SMA (cm/s) 91.7 RIGHT KIDNEY LEFT KIDNEY Velocity (cm/s) Velocity (cm/s) Sys/Cook Sys/Cook Resistive Index Resistive Index 76.0 / 5.0 0.93 Proximal Renal Artery 81.0 / 0.8 0.99 79.3 / 0.0 1.00 Mid Renal Artery 57.0 / 0.8 0.99 74.4 / 1.7 0.98 Distal Renal Artery 100.8 / 0.0 1.00 81.0 / 3.3 0.96 Hilar 78.5 / 1.3 0.98 55.4 / 1.7 0.97 Upper Pole 85.9 / 1.7 1.02 83.5 / 0.8 1.01 Mid Pole 85.1 / 0.0 1.00 78.5 / 0.0 1.00 Lower Pole 88.0 / 38.5 0.55 0.90 Renal Aortic Ratio 1.10 Accleration Index (cm/sec2) 3155.0 Hilar 1084.0 0 0 752.00 Upper Pole 2393.0 0 1151.0 Mid Pole 0 1422.0 Lower Pole 1314.0 0 0 112.6 Kidney Length (mm) 115.3 FINDINGS No similar study for comparison. Decrease diastolic velocity, bilateral. No stenosis. Normal ratios. This study is not adequate to exclude renal vein thrombus. CONCLUSIONS Absent bilateral diastolic velocity. Consider vascular renal pathology or prerenal causes, such as cardiovascular disease. Kidneys are not enlarged. This exam is not sufficient to exclude RVT. Dr. Kira Seals DO (Electronically Signed) Final Date: 09 March 2023 10:52 S
[2023-03-09] MEDS: pantoprazole 40 mg SDV IVP (08:23)
[2023-03-09] MEDS: heparin 5,000 unit/mL INJ 1 mL 5000 UNIT SUBCUT ×2 (08:23→20:38)
[2023-03-09 08:42] LABS: Glucose Point of Care 251 mg/dL (70-110)
[2023-03-09] MEDS: perflutren protein-a microsphr 0.22 mg/mL SDV 3 mL IV (09:37)
[2023-03-09 09:39] LABS: Glucose Point of Care 204 mg/dL (70-110)
[2023-03-09] MEDS: hyDRALAzine 20 mg/mL INJ 1 mL 5 MG IVP (09:39)
--- NOTE | 2023-03-09 10:22 | P.PN_ITS ---
Subjective Subjective: Labs worsened yesterday evening. Gen surg placed temp dialsysis catheter pt had dialysis session overnight labs reviewed this am K 3.4, Cr 4.8 Patient confused this AM. Does not know president or the year. Able to state his name however and knows he is in the hospital. Diarrhea reported overnight Pt unable to provide hx of diarrhea at home however he reported to nephrology yesterday that he was having diarrea. i will confirm this from family. hb 7.6 today 50 cc urine output overnight 1800 ml removed at dialysis Vitals/I&O/Wt Last Vital Signs Temp 98.2 F 03/09/23 04:37 Pulse 81 03/09/23 10:03 Resp 10 L 03/09/23 10:03 BP 144/71 03/09/23 10:03 Pulse Ox 94 03/09/23 10:03 O2 Del Method Nasal Cannula 03/09/23 04:37 03/08/23 03/09/23 03/09/23 22:59 06:59 14:59 Intake Total 1500 / 2500 3140.833 / 3140.833 Output Total 1850 / 1850 Balance -350 / 650 3140.833 / 3140.833 Weight last 48 hrs Weight 94.347 kg Weight 97.7 kg Weight 86.183 kg Physical Exam Narrative: General: Alert oriented x3, patient seen laying in bed appearing comfortable HEENT: Normocephalic, atraumatic, EOMI, breathing room air Cardio: Regular rate rhythm, normal S1-S2, Respiratory: Good bilateral air entry, no wheezes no rhonchi appreciated GI: Abdomen soft, nontender, nondistended, bowel sounds + Behavior: Appropriate and cooperative Extremities: Non pitting edema b/l LE upto thighs Right femoral dialysis catheter present, insertion site appears clean, non erythematous Urinary Catheter Management: Hayes: Cath Placed During This Visit: yes Reason for Continuing Indwelling Catheter: Accurate Measurement of Urinary Output in Critically Ill Patients Urinary Catheter Date of Insertion: 03/08/23 Data 03/09/23 11:05 03/09/23 03:45 Micro: Microbiology 03/08/23 18:50 Occult Blood (FIT) - Final Stool Routine Collection 03/08/23 13:00 Blood Culture - Preliminary Blood SPECIMEN COLLECTED 03/08/23 12:55 Blood Culture - Preliminary Blood SPECIMEN COLLECTED A&P Assessment and plan (1) Type 2 diabetes mellitus: 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 #Hyperkalemia - resolved #Confusion/hypoglycemia prior to arrival #Type 2 diabetes mellitus #High anion gap metabolic acidosis secondary to renal failure #Lactic acidosis - at admission #Hypertension #Chronic kidney disease stage 4 #Anemia possibly 2/2 to chronic disease ? Admit to ICU ? Hold antihypertensives at this time. It seems patient was on amlodipine 10 mg daily, bisoprolol 2.5, hydrochlorothiazide 6.25 daily. ? Hold antihyperglycemic's glimepiride, metformin at this time - place on prn hydralazine 5 mg iv q4h ? Check renal ultrasound. 1. Abnormal kidneys. Kidneys are enlarged and hypoechoic without obstruction. Differential includes bilateral pyelonephritis, lymphoma, acute interstitial/glomerulonephritis. Additional etiologies to consider renal vein thrombosis. There is a more focal thickening involving the superior pole of the LEFT kidney. 2. No hydronephrosis. - Re-order renal doppler to r/o RVT. Low probability but cannot be definitavely excluded. Renal parenchymal disease more likely. ? Place Hayes catheter. Monitor urine output. 50 cc output overnight. ? Patient received 1 amp of bicarb in ER. ? Nephrology consulted ? Urinalysis has been requested. ? We will check blood cultures, sputum culture Gram stain. Pending ? Repeat lactic acid ? CT abdomen pelvis without contrast: 1. A small layering posterior pleural effusion on the left with small amount of subjacent atelectasis left lung base. 2. Psve-rt-lkszwfza cardiomegaly with extensive coronary artery calcification. 3. Small benign calcified granuloma left lung base. 4. No acute findings in the chest otherwise.? 1. Extensive vascular calcification of the abdominal aorta and tributaries, without aneurysmal dilatation.? This includes takeoff of the right renal artery. 2. Bilateral perinephric stranding, most likely age related with bilateral findings.? Correlate clinically with urinalysis otherwise.? Kidneys are otherwise unremarkable for unenhanced exam. 3. Hayes catheter within an incompletely distended urinary bladder. 4. Scattered colonic diverticulosis without CT findings diverticulitis.? - Place on empiric zosyn - UA shows: 3+ protein, elevated alb/cr ratio. - Check iron 60, ferritin 161, retic count, occult blood test pending - stop bicarb drip - stop d10 - continue to monitor BG q1h x4 hours then q6h - avoid insulin at this time. BG goal 140-180 post meal at 2 hours - PTH 68, TSH 2.95 Vit D 29 - Continue to monitor in ICU today. May potentially transfer to floor tomorrow. DIet: renal diet, low K DNR/DNI DVT prophylaxis: Heparin subcu twice daily SCDs Attestations Medical Necessity Statement*: Continue management as above. 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
[2023-03-09 11:10] LABS: Glucose Point of Care 228 mg/dL (70-110)
[2023-03-09 11:16] LABS: Glucose Point of Care 195 mg/dL (70-110)
[2023-03-09 11:16] LABS: Glucose Point of Care 26 mg/dL (70-110)
[2023-03-09 11:23] LABS: Hematocrit 21.7 % (37-53)
--- NOTE | 2023-03-09 13:58 | PM.PN ---
Subjective Subjective: doing well s/p Emergent HD last night Medications: Reviewed: Yes Vitals/I&O/Wt Last Vital Signs Temp 98.2 F 03/09/23 04:37 Pulse 82 03/09/23 13:00 Resp 14 03/09/23 13:00 BP 136/61 03/09/23 13:00 Pulse Ox 94 03/09/23 12:07 O2 Del Method Nasal Cannula 03/09/23 04:37 03/08/23 03/09/23 03/09/23 22:59 06:59 14:59 Intake Total 1500 / 2500 3430.833 / 3430.833 Output Total 1850 / 1850 Balance -350 / 650 3430.833 / 3430.833 Weight last 48 hrs Weight 94.347 kg Weight 97.7 kg Weight 86.183 kg Physical Exam Narrative: Awake, alert no distress s1s2 rrr per report Lungs clear per report 2+ edema Urinary Catheter Management: Hayes: Cath Placed During This Visit: yes Reason for Continuing Indwelling Catheter: Accurate Measurement of Urinary Output in Critically Ill Patients Urinary Catheter Date of Insertion: 03/08/23 Data 03/09/23 11:05 03/09/23 03:45 Micro: Microbiology 03/08/23 13:00 Blood Culture - Preliminary Blood NEGATIVE TO DATE 03/08/23 12:55 Blood Culture - Preliminary Blood NEGATIVE TO DATE 03/08/23 18:50 Occult Blood (FIT) - Final Stool Routine Collection A&P Assessment and plan (1) Chronic kidney disease: (2) Acute renal failure: Plan 1. Acute on chronic kidney disease stage 4: Last known creatinine was 1.9 in October 2022. Now has severe LYNN with a creatinine of 8 associated with metabolic acidosis and severe hyperkalemia. -I suspect there is some progression of CKD but also have superimposed prerenal component from recent diarrhea and decreased p.o. intake. We will also do serological work-up for GN . Check CK level - serologies negative so far , s/p emergent HD last night due to hyperkalemia , watch renal fxn closely for recovery , If no recovery , will need Tunnelled catheter placement -s/p bicarbonate drip, monitor closely 2. Hyperkalemia: Status post HD.. Continue with low K diet 3. Metabolic acidosis: S/P bicarbonate drip, has lactic acidosis and LYNN 4. History of diabetes: No hypoglycemic, 5. History of hypertension: Blood pressure controlled, holding meds including HCTZ 6. Anemia: Monitor, check iron studies Patient evaluated using virtual cart. Time spent 45 minutes Attestations Medical Necessity Statement*: per medicine team Coding Level of Care Code Acute Code for g Fwd Diagnoses Chronic kidney disease N18.9 Acute renal failure N17.9
[2023-03-09] MEDS: sodium chloride 0.9% 1,000 ML 100 ML IV (15:04)
[2023-03-09] MEDS: FUROsemide 10 mg/mL SDV 4mL 40 MG IVP (15:07)
[2023-03-09 21:12] LABS: Chloride Urine Random 71 mmol/L; Urine Random Sodium 80 mmol/L
[2023-03-09 21:35] LABS: Glucose Point of Care 184 mg/dL (70-110)
[2023-03-10] VITALS (22 sets, daily range): BP systolic 141–178; BP diastolic 60–83; PULSE 61–83; RESP 3–25; TEMP 36.8–37.5; O2SAT 92–100
[2023-03-10 01:00] LABS: Glucose Point of Care 136 mg/dL (70-110)
[2023-03-10 04:17] LABS: Glucose Point of Care 88 mg/dL (70-110)
[2023-03-10 05:12] LABS: Anion Gap 12.6 (5-19); Blood Urea Nitrogen 41 mg/dL (8-23); Calcium 8.1 mg/dL (8.5-10.5); Carbon Dioxide 31 mmol/L (22-29); Chloride 96 mmol/L (98-107); Glucose 88 mg/dL (65-115); Osmolality Calculated 292 mOsm/kg (285-295); Potassium 3.6 mmol/L (3.5-5.1); Sodium 136 mmol/L (136-145)
[2023-03-10] MEDS: piperacillin-tazobactam 3.375 GM in sodium chloride 0.9% (plus) 50 ML IV ×2 (06:11→18:32)
[2023-03-10 06:28] LABS: Glucose Point of Care 116 mg/dL (70-110)
[2023-03-10 07:58] LABS: Glucose Point of Care 122 mg/dL (70-110)
--- NOTE | 2023-03-10 08:03 | PM.PN ---
Subjective Subjective: UOP Remains low Medications: Reviewed: Yes Vitals/I&O/Wt Last Vital Signs Temp 99.5 F 03/10/23 00:01 Pulse 68 03/10/23 06:39 Resp 6 L 03/10/23 06:39 BP 161/83 03/10/23 06:39 Pulse Ox 93 03/10/23 06:39 O2 Del Method Nasal Cannula 03/09/23 04:37 03/09/23 03/10/23 03/10/23 22:59 06:59 14:59 Intake Total 240 / 3670.833 230 / 3900.833 Output Total 75 / 75 Balance 240 / 3670.833 155 / 3825.833 Weight last 48 hrs Weight 98.43 kg Weight 94.347 kg Weight 97.7 kg Weight 86.183 kg Physical Exam Narrative: Awake, alert no distress s1s2 rrr per report Lungs clear per report 2+ edema Urinary Catheter Management: Hayes: Cath Placed During This Visit: yes Reason for Continuing Indwelling Catheter: Accurate Measurement of Urinary Output in Critically Ill Patients Urinary Catheter Date of Insertion: 03/08/23 Data 03/11/23 04:38 03/11/23 04:38 Micro: Microbiology 03/08/23 13:00 Blood Culture - Preliminary Blood NEGATIVE TO DATE 03/08/23 12:55 Blood Culture - Preliminary Blood NEGATIVE TO DATE A&P Assessment and plan (1) Chronic kidney disease: (2) Acute renal failure: Plan 1. Acute on chronic kidney disease stage 4: Last known creatinine was 1.9 in October 2022. Now has severe LYNN with a creatinine of 8 associated with metabolic acidosis and severe hyperkalemia. -I suspect there is some progression of CKD but also have superimposed prerenal component from recent diarrhea and decreased p.o. intake. We will also do serological work-up for GN . Check CK level - serologies negative so far , - s/p emergent HD due to hyperkalemia , no renal recovery so far- HD today and , will need Tunnelled catheter placement 2. Hyperkalemia: Status post HD.. Continue with low K diet 3. Metabolic acidosis: S/P bicarbonate drip, has lactic acidosis and LYNN 4. History of diabetes: No hypoglycemic, 5. History of hypertension: Blood pressure controlled, holding meds including HCTZ 6. Anemia: Monitor,ordered MELLISSA 7. MBD : check PTH, Vit D , and Phos Patient evaluated using virtual cart. Time spent 25 minutes Attestations Medical Necessity Statement*: per medicine team Coding Level of Care Code Acute Code for Chg Fwd Diagnoses Chronic kidney disease N18.9 Acute renal failure N17.9
[2023-03-10] MEDS: pantoprazole 40 mg SDV IVP (08:04)
[2023-03-10] MEDS: heparin 5,000 unit/mL INJ 1 mL 5000 UNIT SUBCUT ×2 (08:04→21:09)
--- NOTE | 2023-03-10 12:09 | PM.PN ---
Subjective Subjective: seen today daughter at bedside pt feeling better today undergoing dialysis at this time Vitals/I&O/Wt Last Vital Signs Temp 98.2 F 03/10/23 09:04 Pulse 78 03/10/23 10:47 Resp 17 03/10/23 10:47 BP 156/71 03/10/23 10:47 Pulse Ox 95 03/10/23 10:47 O2 Del Method Nasal Cannula 03/09/23 04:37 03/09/23 03/10/23 03/10/23 22:59 06:59 14:59 Intake Total 240 / 3670.833 230 / 3900.833 1290 / 1290 Output Total 75 / 75 Balance 240 / 3670.833 155 / 3825.833 1290 / 1290 Weight last 48 hrs Weight 98.43 kg Weight 94.347 kg Weight 97.7 kg Physical Exam Narrative: General: Alert oriented x3, patient seen laying in bed appearing comfortable HEENT: Normocephalic, atraumatic, EOMI, breathing room air Cardio: Regular rate rhythm, normal S1-S2, Respiratory: Good bilateral air entry, no wheezes no rhonchi appreciated GI: Abdomen soft, nontender, nondistended, bowel sounds + Behavior: Appropriate and cooperative Extremities:1+ Non pitting edema b/l LE Right femoral dialysis catheter present, insertion site appears clean, non erythematous Urinary Catheter Management: Hayes: Cath Placed During This Visit: yes Reason for Continuing Indwelling Catheter: Accurate Measurement of Urinary Output in Critically Ill Patients Urinary Catheter Date of Insertion: 03/08/23 Data 03/09/23 11:05 03/10/23 04:10 Micro: Microbiology 03/08/23 13:00 Blood Culture - Preliminary Blood NEGATIVE TO DATE 03/08/23 12:55 Blood Culture - Preliminary Blood NEGATIVE TO DATE A&P Assessment and plan (1) Type 2 diabetes mellitus: Qualifiers: Diabetes mellitus fdc insulin use: without fdc use (2) Hypertension: Qualifiers: Hypertension type: essential hypertension Qualified Code(s): I10 - Essential (primary) hypertension (3) Osteoarthritis of right knee: (4) Acute renal failure: (5) Metabolic acidosis: (6) High anion gap metabolic acidosis: (7) Hyperkalemia: (8) Hypoglycemia: (9) Lactic acidosis: (10) Chronic kidney disease: (11) Anuria: Plan #Acute renal failure, LYNN possible pre-renal component. #Hyperkalemia - resolved #Confusion/hypoglycemia prior to arrival #Type 2 diabetes mellitus #High anion gap metabolic acidosis secondary to renal failure #Lactic acidosis - at admission #Hypertension #Chronic kidney disease stage 4 #Anemia possibly 2/2 to chronic disease ? Hold antihypertensives at this time. It seems patient was on valsartan 320 daily, hydrochlorothiazide 6.25 daily. ? Hold antihyperglycemic's glimepiride, metformin at this time - Restart bisoprolol 2.5 daily ? Renal ultrasound. 1. Abnormal kidneys. Kidneys are enlarged and hypoechoic without obstruction. Differential includes bilateral pyelonephritis, lymphoma, acute interstitial/glomerulonephritis. Additional etiologies to consider renal vein thrombosis. There is a more focal thickening involving the superior pole of the LEFT kidney. 2. No hydronephrosis. - Re-order renal doppler to r/o RVT. Low probability but cannot be definitavely excluded. Renal parenchymal disease more likely. ? Continue Hayes catheter. Monitor urine output. ? Nephrology consulted ? CT abdomen pelvis without contrast: 1. A small layering posterior pleural effusion on the left with small amount of subjacent atelectasis left lung base. 2. [id number]-km-[id number] cardiomegaly with extensive coronary artery calcification. 3. Small benign calcified granuloma left lung base. 4. No acute findings in the chest otherwise.? 1. Extensive vascular calcification of the abdominal aorta and tributaries, without aneurysmal dilatation.? This includes takeoff of the right renal artery. 2. Bilateral perinephric stranding, most likely age related with bilateral findings.? Correlate clinically with urinalysis otherwise.? Kidneys are otherwise unremarkable for unenhanced exam. 3. Hayes catheter within an incompletely distended urinary bladder. 4. Scattered colonic diverticulosis without CT findings diverticulitis.? - Place on empiric zosyn, will complete 7 days - UA shows: 3+ protein, elevated alb/cr ratio. - Check iron 60, ferritin 161, retic count, occult blood test pending - continue to monitor BG AC/HS - avoid insulin at this time. BG goal 140-180 post meal at 2 hours - PTH 68, TSH 2.95 Vit D 29 - Transfer to floor today - CBC pending today Had a long discussion with daughter and patient and updated them of the case in detail. 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
[2023-03-10] MEDS: heparin, porcine 1,000 unit/mL INJ 10 mL 10000 UNIT INTRACATH (12:18)
[2023-03-10 12:37] LABS: Glucose Point of Care 142 mg/dL (70-110)
[2023-03-10 17:13] LABS: Glucose Point of Care 205 mg/dL (70-110)
[2023-03-10] MEDS: insulin lispro 100 unit/1 mL SUBCUT ×2 (18:31→22:15)
[2023-03-10 20:54] LABS: Glucose Point of Care 213 mg/dL (70-110)
[2023-03-11] VITALS (10 sets, daily range): BP systolic 132–171; BP diastolic 66–77; PULSE 68–87; RESP 16–19; TEMP 36.4–36.9; O2SAT 92–96
[2023-03-11 04:58] LABS: Basophils % 0.4 %; Eosinophils # 0.4 10^3/uL (0.0-0.8); Eosinophils % 3.2 %; Hematocrit 22.9 % (37-53); Lymphocytes # 2.1 10^3/uL (0.8-4.8); Lymphocytes % 18.6 %; Mean Corpuscular HGB Conc 32.3 g/dL (30-55); Mean Corpuscular Hemoglobin 28.1 pg (27-33); Mean Corpuscular Volume 87.1 fl (82-101); Mean Platelet Volume 9.6 fL (7.4-10.4); Monocytes # 0.8 10^3/uL (0.2-0.9); Monocytes % 7.6 %; Neutrophils # 7.67 10^3/uL (1.8-7.7); Neutrophils % 69.4 %; Nucleated Red Blood Cells % 0 %; Platelet Count 248 10^3/cmm (157-399); Red Blood Count 2.63 10^6/uL (3.85-5.65); Red Cell Distribution Width 13.8 % (12.1-15.1); White Blood Count 11.05 10^3/uL (3.29-11.43)
[2023-03-11 05:25] LABS: Anion Gap 12.6 (5-19); Blood Urea Nitrogen 23 mg/dL (8-23); Calcium 8.1 mg/dL (8.5-10.5); Carbon Dioxide 29 mmol/L (22-29); Chloride 97 mmol/L (98-107); Glucose 96 mg/dL (65-115); Osmolality Calculated 284 mOsm/kg (285-295); Potassium 3.6 mmol/L (3.5-5.1); Sodium 135 mmol/L (136-145)
[2023-03-11] MEDS: piperacillin-tazobactam 3.375 GM in sodium chloride 0.9% (plus) 50 ML IV ×2 (06:11→18:28)
[2023-03-11 06:45] LABS: Glucose Point of Care 100 mg/dL (70-110)
--- NOTE | 2023-03-11 06:59 | P.PN_ITS ---
Subjective Subjective: s/p HD yesterday Medications: Reviewed: Yes Vitals/I&O/Wt Last Vital Signs Temp 98.2 F 03/11/23 05:43 Pulse 79 03/11/23 06:00 Resp 16 03/11/23 05:43 BP 144/76 03/11/23 05:43 Pulse Ox 93 03/11/23 05:43 O2 Del Method Room Air 03/11/23 05:43 03/10/23 03/10/23 03/11/23 14:59 22:59 06:59 Intake Total 1830 / 1830 480 / 2310 50 / 2360 Output Total 2300 / 2300 100 / 2400 100 / 2500 Balance -470 / -470 380 / -90 -50 / -140 Weight last 48 hrs Weight 96.19 kg Weight 96.3 kg Weight 98.43 kg Physical Exam Narrative: Awake, alert no distress s1s2 rrr per report Lungs clear per report 2+ edema Urinary Catheter Management: Hayes: Cath Placed During This Visit: yes Reason for Continuing Indwelling Catheter: Acute Urinary Retention or Obstruction Urinary Catheter Date of Insertion: 03/08/23 Data 03/11/23 04:38 03/11/23 04:38 A&P Assessment and plan (1) Chronic kidney disease: (2) Acute renal failure: Plan 1. Acute on chronic kidney disease stage 4: Last known creatinine was 1.9 in October 2022. Now has severe LYNN with a creatinine of 8 associated with metabolic acidosis and severe hyperkalemia. -I suspect there is some progression of CKD but also have superimposed prerenal component from recent diarrhea and decreased p.o. intake. We will also do serological work-up for GN . 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 Hyperkalemia: Status post HD.. Continue with low K diet 3. Metabolic acidosis: S/P bicarbonate drip, has lactic acidosis and LYNN 4. History of diabetes: No hypoglycemic, 5. History of hypertension: Blood pressure controlled, holding meds including HCTZ 6. Anemia: Monitor,ordered MELLISSA 7. MBD : check PTH, Vit D , and Phos Patient evaluated using virtual cart. Time spent 25 minutes Attestations Medical Necessity Statement*: per mediicen team Coding Level of Care Code Acute Code for Chg Fwd Diagnoses Chronic kidney disease N18.9 Acute renal failure N17.9
[2023-03-11] MEDS: atorvastatin 40 mg Tablet 80 MG PO (08:39)
[2023-03-11] MEDS: heparin 5,000 unit/mL INJ 1 mL 5000 UNIT SUBCUT ×2 (08:39→20:21)
[2023-03-11] MEDS: pantoprazole 40 mg SDV IVP (10:30)
[2023-03-11 11:32] LABS: Glucose Point of Care 200 mg/dL (70-110)
[2023-03-11] MEDS: insulin lispro 100 unit/1 mL SUBCUT ×3 (11:46→21:01)
--- NOTE | 2023-03-11 11:54 | PM.PN ---
Subjective Subjective: Hospital course appreciated. No acute events overnight. Patient has remained hemodynamically stable and afebrile. Patient in cheerful spirits. Minimal urine output of around 200 cc in last 24 hours. Blood work appreciated. Vitals/I&O/Wt Last Vital Signs Temp 97.6 F 03/11/23 08:00 Pulse 87 03/11/23 08:00 Resp 18 03/11/23 08:00 BP 156/66 03/11/23 08:00 Pulse Ox 93 03/11/23 08:00 O2 Del Method Room Air 03/11/23 08:00 03/10/23 03/11/23 03/11/23 22:59 06:59 14:59 Intake Total 480 / 2310 50 / 2360 50 / 50 Output Total 100 / 2400 100 / 2500 Balance 380 / -90 -50 / -140 50 / 50 Weight last 48 hrs Weight 96.19 kg Weight 96.3 kg Weight 98.43 kg Physical Exam Narrative: General: Alert oriented x3, patient seen laying in bed appearing comfortable HEENT: Normocephalic, atraumatic, EOMI, breathing room air Cardio: Regular rate rhythm, normal S1-S2, Respiratory: Good bilateral air entry, no wheezes no rhonchi appreciated GI: Abdomen soft, nontender, nondistended, bowel sounds + Behavior: Appropriate and cooperative Extremities:1+ Non pitting edema b/l LE Right femoral dialysis catheter present, insertion site appears clean, non erythematous Urinary Catheter Management: Hayes: Cath Placed During This Visit: yes Reason for Continuing Indwelling Catheter: Acute Urinary Retention or Obstruction Urinary Catheter Date of Insertion: 03/08/23 Data 03/11/23 04:38 03/11/23 04:38 A&P Assessment and plan (1) Type 2 diabetes mellitus: Qualifiers: Diabetes mellitus jail insulin use: without jail use (2) Hypertension: Qualifiers: Hypertension type: essential hypertension Qualified Code(s): I10 - Essential (primary) hypertension (3) Osteoarthritis of right knee: (4) Acute renal failure: (5) Metabolic acidosis: (6) High anion gap metabolic acidosis: (7) Hyperkalemia: (8) Hypoglycemia: (9) Lactic acidosis: (10) Chronic kidney disease: (11) Anuria: Plan #Acute renal failure, LYNN possible pre-renal component. #Hyperkalemia - resolved #Confusion/hypoglycemia prior to arrival #Type 2 diabetes mellitus #High anion gap metabolic acidosis secondary to renal failure #Lactic acidosis - at admission #Hypertension #Chronic kidney disease stage 4 #Anemia possibly 2/2 to chronic disease ? Hold antihypertensives at this time. It seems patient was on valsartan 320 daily, hydrochlorothiazide 6.25 daily. ? Hold antihyperglycemic's glimepiride, metformin at this time - Restart bisoprolol 2.5 daily ? Renal ultrasound. 1. Abnormal kidneys. Kidneys are enlarged and hypoechoic without obstruction. Differential includes bilateral pyelonephritis, lymphoma, acute interstitial/glomerulonephritis. Additional etiologies to consider renal vein thrombosis. There is a more focal thickening involving the superior pole of the LEFT kidney. 2. No hydronephrosis. - Re-order renal doppler to r/o RVT. Low probability but cannot be definitavely excluded. Renal parenchymal disease more likely. ? Continue Hayes catheter. Monitor urine output. ? Nephrology consulted ? CT abdomen pelvis without contrast: 1. A small layering posterior pleural effusion on the left with small amount of subjacent atelectasis left lung base. 2. Myor-ot-[id number] cardiomegaly with extensive coronary artery calcification. 3. Small benign calcified granuloma left lung base. 4. No acute findings in the chest otherwise.? 1. Extensive vascular calcification of the abdominal aorta and tributaries, without aneurysmal dilatation.? This includes takeoff of the right renal artery. 2. Bilateral perinephric stranding, most likely age related with bilateral findings.? Correlate clinically with urinalysis otherwise.? Kidneys are otherwise unremarkable for unenhanced exam. 3. Hayes catheter within an incompletely distended urinary bladder. 4. Scattered colonic diverticulosis without CT findings diverticulitis.? - Place on empiric zosyn, will complete 7 days - UA shows: 3+ protein, elevated alb/cr ratio. - Check iron 60, ferritin 161, retic count, occult blood test pending - continue to monitor BG AC/HS - avoid insulin at this time. BG goal 140-180 post meal at 2 hours - PTH 68, TSH 2.95 Vit D 29 - Transfer to floor today - CBC pending today Had a long discussion with daughter and patient and updated them of the case in detail. DIet: renal diet, low K Plan for today: Monitor renal functions daily. Appreciate nephrology recommendations. High likelihood patient would need long-term dialysis given extremely slow renal recovery with oliguria. Plan for now is to continue monitor renal functions till Wednesday and if no recovery Tunneled catheter placement for outpatient dialysis. Discussed in detail with the patient. He is agreeable with the current treatment plan. He is aware dialysis would be 3 times a week. Continue with current bisoprolol 2.5 mg daily. Blood pressure slightly elevated. Goal blood pressure less than 140/90 mmHg. Renal dialysis diet. Care plan discussed in detail with case management. Directed for working on chair time as an outpatient for early next week. DNR/DNI DVT prophylaxis: Heparin subcu twice daily SCDs Attestations Medical Necessity Statement*: Requires further hospitalization for management of acute renal failure on CKD while patient requires hemodialysis and renal recovery is awaited Diagnoses Type 2 diabetes mellitus E11.9 Diabetes mellitus jail insulin use: without jail use Hypertension I10 Hypertension type: essential hypertension Osteoarthritis of right knee M17.11 Acute renal failure N17.9 Metabolic acidosis E87.20 High anion gap metabolic acidosis E87.29 Hyperkalemia E87.5 Hypoglycemia E16.2 Lactic acidosis E87.20 Chronic kidney disease N18.9 Anuria R34
[2023-03-11 17:33] LABS: Glucose Point of Care 193 mg/dL (70-110)
[2023-03-11 20:49] LABS: Glucose Point of Care 181 mg/dL (70-110)
[2023-03-12] VITALS (12 sets, daily range): BP systolic 118–176; BP diastolic 60–83; PULSE 50–81; RESP 16–18; TEMP 36.6–37.6; O2SAT 92–97
[2023-03-12 05:00] LABS: Add Urine Microscopic? YES; Bilirubin Urine Neg (Negative); Blood Urine 3+ (Negative); Glucose Urine UA Trace (Normal); Ketones Urine Negative (Negative); Leukocyte Esterase Urine 2+ (Negative); Nitrate Urine Negative (Negative); Protein Urine 3+ (Negative); RBC Urine 25-40 /hpf (0-2); Squamous Epithelial Cell Urine 0-4 /hpf (0-5); Urine Appearance Hazy (CLEAR); Urine Color Yellow (Yellow); Urobilinogen Urine Neg (Negative); pH Urine 7 (5-7)
[2023-03-12 05:01] LABS: Add Urine Culture? Yes; Bacteria Urine 1+ /hpf
[2023-03-12 05:30] LABS: Basophils # 0.1 10^3/uL (0.0-0.1); Basophils % 0.4 %; Eosinophils # 0.2 10^3/uL (0.0-0.8); Eosinophils % 2.1 %; Hematocrit 21.2 % (37-53); Lymphocytes # 2.3 10^3/uL (0.8-4.8); Mean Corpuscular Hemoglobin 28.9 pg (27-33); Mean Corpuscular Volume 87.6 fl (82-101); Mean Platelet Volume 9.7 fL (7.4-10.4); Monocytes # 0.8 10^3/uL (0.2-0.9); Monocytes % 6.9 %; Neutrophils # 7.89 10^3/uL (1.8-7.7); Neutrophils % 70.1 %; Nucleated Red Blood Cells % 0 %; Platelet Count 239 10^3/cmm (157-399); Red Blood Count 2.42 10^6/uL (3.85-5.65); Red Cell Distribution Width 13.9 % (12.1-15.1); White Blood Count 11.28 10^3/uL (3.29-11.43)
[2023-03-12 05:50] LABS: Alanine Aminotransferase 6 U/L (0-41); Alkaline Phosphatase 44 U/L (40-130); Anion Gap 15.5 (5-19); Aspartate Amino Transferase 10 U/L (0-40); Blood Urea Nitrogen 36 mg/dL (8-23); Calcium 8.2 mg/dL (8.5-10.5); Carbon Dioxide 26 mmol/L (22-29); Chloride 95 mmol/L (98-107); Globulin 2.9 g/dL (1.3-4.6); Glucose 91 mg/dL (65-115); Osmolality Calculated 284 mOsm/kg (285-295); Potassium 3.5 mmol/L (3.5-5.1); Sodium 133 mmol/L (136-145); Total Bilirubin 0.2 mg/dL (0.15-1.2); Total Protein 5.9 g/dL (6.6-8.7)
[2023-03-12 05:54] LABS: Magnesium 1.9 mg/dL (1.7-2.3); Phosphorus 3.7 mg/dL (2.5-4.5)
[2023-03-12] MEDS: piperacillin-tazobactam 3.375 GM in sodium chloride 0.9% (plus) 50 ML IV ×2 (06:06→18:46)
[2023-03-12 06:49] LABS: Glucose Point of Care 124 mg/dL (70-110)
[2023-03-12] MEDS: atorvastatin 40 mg Tablet 80 MG PO (08:36)
[2023-03-12] MEDS: heparin 5,000 unit/mL INJ 1 mL 5000 UNIT SUBCUT ×2 (08:38→19:42)
[2023-03-12] MEDS: pantoprazole 40 mg SDV IVP (08:38)
[2023-03-12] MEDS: heparin, porcine 1,000 unit/mL INJ 10 mL 1000 UNIT IV (10:12)
--- NOTE | 2023-03-12 10:15 | PM.PN ---
Subjective Subjective: UOP low Medications: Reviewed: Yes Vitals/I&O/Wt Last Vital Signs Temp 98.4 F 03/12/23 08:00 Pulse 76 03/12/23 08:00 Resp 16 03/12/23 08:00 BP 173/61 03/12/23 08:00 Pulse Ox 97 03/12/23 08:00 O2 Del Method Room Air 03/12/23 04:00 03/11/23 03/12/23 03/12/23 22:59 06:59 14:59 Intake Total 170 / 820 Output Total 200 / 200 0 / 200 Balance -30 / 620 0 / 620 Weight last 48 hrs Weight 94.149 kg Weight 96.19 kg Weight 96.3 kg Physical Exam Narrative: Awake, alert no distress s1s2 rrr per report Lungs clear per report 2+ edema Urinary Catheter Management: Hayes: Cath Placed During This Visit: yes Reason for Continuing Indwelling Catheter: Acute Urinary Retention or Obstruction Urinary Catheter Date of Insertion: 03/08/23 Data 03/12/23 04:40 03/12/23 04:40 A&P Assessment and plan (1) Chronic kidney disease: (2) Acute renal failure: Plan 1. Acute on chronic kidney disease stage 4: Last known creatinine was 1.9 in October 2022. Now has severe LYNN with a creatinine of 8 associated with metabolic acidosis and severe hyperkalemia. -I suspect there is some progression of CKD , also may have superimposed pre renal LYNN but no renal recovery Yet . 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 Hyperkalemia: Status post HD.. Continue with low K diet 3. Metabolic acidosis: S/P bicarbonate drip, has lactic acidosis and LYNN 4. History of diabetes: No hypoglycemic, 5. History of hypertension: Blood pressure controlled, holding meds including HCTZ 6. Anemia: Monitor,ordered MELLISSA 7. MBD : check PTH, Vit D , and Phos Patient evaluated using virtual cart. Time spent 25 minutes Attestations Medical Necessity Statement*: per medicine team Coding Level of Care Code Acute Code for [facility] Fwd Diagnoses Chronic kidney disease N18.9 Acute renal failure N17.9
[2023-03-12 12:53] LABS: Glucose Point of Care 134 mg/dL (70-110)
--- NOTE | 2023-03-12 12:59 | PC.SOCIAL ---
IMM Update pg 2 of IMM updated and reviewed w/ patient. Copy provided and Copy dated, initialed and placed in chart.
[2023-03-12] MEDS: epoetin alfa 1000 Unit/0.05 mL (ESRD) 20000 UNIT IVP (13:27)
[2023-03-12] MEDS: heparin, porcine 1,000 unit/mL INJ 10 mL 10000 UNIT INTRACATH (13:28)
--- NOTE | 2023-03-12 13:59 | PM.PN ---
Subjective Subjective: Seen today. Labs reviewed Discussed with nephrology. Patient feeling better. Patient continues to be anuric Hemoglobin 7.0 today. Vitals/I&O/Wt Last Vital Signs Temp 98.4 F 03/12/23 08:00 Pulse 76 03/12/23 08:00 Resp 16 03/12/23 08:00 BP 173/61 03/12/23 08:00 Pulse Ox 97 03/12/23 08:00 O2 Del Method Room Air 03/12/23 04:00 03/11/23 03/12/23 03/12/23 22:59 06:59 14:59 Intake Total 170 / 820 290 / 290 Output Total 200 / 200 0 / 200 Balance -30 / 620 0 / 620 290 / 290 Weight last 48 hrs Weight 94.149 kg Weight 96.19 kg Physical Exam Narrative: General: Alert oriented x3, patient seen laying in bed appearing comfortable HEENT: Normocephalic, atraumatic, EOMI, breathing room air Cardio: Regular rate rhythm, normal S1-S2, Respiratory: Good bilateral air entry, no wheezes no rhonchi appreciated GI: Abdomen soft, nontender, nondistended, bowel sounds + Behavior: Appropriate and cooperative Extremities:1+ Non pitting edema b/l LE Right femoral dialysis catheter present, insertion site appears clean, non erythematous Urinary Catheter Management: Hayes: Cath Placed During This Visit: yes Reason for Continuing Indwelling Catheter: Acute Urinary Retention or Obstruction Urinary Catheter Date of Insertion: 03/08/23 Data 03/12/23 04:40 03/12/23 04:40 A&P Assessment and plan (1) Type 2 diabetes mellitus: Qualifiers: 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 #Hyperkalemia - resolved #Confusion/hypoglycemia prior to arrival #Type 2 diabetes mellitus #High anion gap metabolic acidosis secondary to renal failure #Lactic acidosis - at admission #Hypertension #Chronic kidney disease stage 4 #Anemia possibly 2/2 to chronic disease ? Hold antihypertensives at this time. It seems patient was on valsartan 320 daily, hydrochlorothiazide 6.25 daily. ? Hold antihyperglycemic's glimepiride, metformin at this time - Restart bisoprolol 2.5 daily ? Renal ultrasound. 1. Abnormal kidneys. Kidneys are enlarged and hypoechoic without obstruction. Differential includes bilateral pyelonephritis, lymphoma, acute interstitial/glomerulonephritis. Additional etiologies to consider renal vein thrombosis. There is a more focal thickening involving the superior pole of the LEFT kidney. 2. No hydronephrosis. - Re-order renal doppler to r/o RVT. Low probability but cannot be definitavely excluded. Renal parenchymal disease more likely. ? Continue Hayes catheter. Monitor urine output. ? Nephrology consulted ? CT abdomen pelvis without contrast: 1. A small layering posterior pleural effusion on the left with small amount of subjacent atelectasis left lung base. 2. Tyqp-ra-jsqkhesi cardiomegaly with extensive coronary artery calcification. 3. Small benign calcified granuloma left lung base. 4. No acute findings in the chest otherwise.? 1. Extensive vascular calcification of the abdominal aorta and tributaries, without aneurysmal dilatation.? This includes takeoff of the right renal artery. 2. Bilateral perinephric stranding, most likely age related with bilateral findings.? Correlate clinically with urinalysis otherwise.? Kidneys are otherwise unremarkable for unenhanced exam. 3. Hayes catheter within an incompletely distended urinary bladder. 4. Scattered colonic diverticulosis without CT findings diverticulitis.? - Place on empiric zosyn, will complete 7 days - UA shows: 3+ protein, elevated alb/cr ratio. - Check iron 60, ferritin 161, retic count, occult blood test pending - continue to monitor BG AC/HS - avoid insulin at this time. BG goal 140-180 post meal at 2 hours - PTH 68, TSH 2.95 Vit D 29 Today's plan 03/12: Plan for tunnel dialysis catheter this Wednesday. Case management updated to look for chair time for the patient. Continue daily labs Dialysis as per nephrology Encourage patient to get out of bed Updated family at bedside. Hemoglobin 7.0 today. Labs indicate anemia secondary to chronic disease. transfuse 1 unit packed RBC Check occult blood test DIet: renal diet, low K DNR/DNI DVT prophylaxis: Heparin subcu twice daily SCDs Attestations Medical Necessity Statement*: Continue management of acute kidney injury. Awaiting outpatient dialysis spot. Tunneled catheter to be placed Wednesday. Patient requires a blood transfusion today. Diagnoses Type 2 diabetes mellitus E11.9 Diabetes mellitus fci insulin use: without extermination inspector use Hypertension I10 Hypertension type: essential hypertension Osteoarthritis of right knee M17.11 Acute renal failure N17.9 Metabolic acidosis E87.20 High anion gap metabolic acidosis E87.29 Hyperkalemia E87.5 Hypoglycemia E16.2 Lactic acidosis E87.20 Chronic kidney disease N18.9 Anuria R34
[2023-03-12 17:14] LABS: Glucose Point of Care 249 mg/dL (70-110)
[2023-03-12] MEDS: acetaminophen 325 mg Tablet 650 MG PO ×2 (17:30→21:38)
[2023-03-12] MEDS: insulin lispro 100 unit/1 mL SUBCUT ×2 (17:31→22:06)
[2023-03-12 21:26] LABS: Glucose Point of Care 246 mg/dL (70-110)
[2023-03-13] VITALS (11 sets, daily range): BP systolic 158–175; BP diastolic 65–78; PULSE 61–86; RESP 14–20; TEMP 36.1–37.4; O2SAT 93–99
[2023-03-13 04:56] LABS: Basophils % 0.4 %; Eosinophils # 0.4 10^3/uL (0.0-0.8); Eosinophils % 4.5 %; Hematocrit 24.7 % (37-53); Lymphocytes # 2.1 10^3/uL (0.8-4.8); Lymphocytes % 22.2 %; Mean Corpuscular HGB Conc 32.8 g/dL (30-55); Mean Corpuscular Volume 88.5 fl (82-101); Mean Platelet Volume 9.7 fL (7.4-10.4); Monocytes # 0.8 10^3/uL (0.2-0.9); Monocytes % 8.3 %; Neutrophils # 6.02 10^3/uL (1.8-7.7); Nucleated Red Blood Cells % 0 %; Platelet Count 226 10^3/cmm (157-399); Red Blood Count 2.79 10^6/uL (3.85-5.65); Red Cell Distribution Width 13.7 % (12.1-15.1); White Blood Count 9.41 10^3/uL (3.29-11.43)
[2023-03-13 05:21] LABS: Anion Gap 14.3 (5-19); Blood Urea Nitrogen 27 mg/dL (8-23); Carbon Dioxide 25 mmol/L (22-29); Chloride 98 mmol/L (98-107); Glucose 107 mg/dL (65-115); Osmolality Calculated 284 mOsm/kg (285-295); Potassium 3.3 mmol/L (3.5-5.1); Sodium 134 mmol/L (136-145)
[2023-03-13 05:23] LABS: Phosphorus 3.3 mg/dL (2.5-4.5)
[2023-03-13] MEDS: piperacillin-tazobactam 3.375 GM in sodium chloride 0.9% (plus) 50 ML IV ×2 (06:00→18:24)
[2023-03-13 06:57] LABS: Glucose Point of Care 140 mg/dL (70-110)
[2023-03-13] MEDS: heparin 5,000 unit/mL INJ 1 mL 5000 UNIT SUBCUT ×2 (09:43→20:53)
[2023-03-13] MEDS: pantoprazole 40 mg SDV IVP (09:44)
[2023-03-13] MEDS: atorvastatin 40 mg Tablet 80 MG PO (09:44)
--- NOTE | 2023-03-13 10:44 | P.PN_ITS ---
Subjective Subjective: s/p HD yesterday Medications: Reviewed: Yes Vitals/I&O/Wt Last Vital Signs Temp 97.0 F L 03/13/23 07:48 Pulse 72 03/13/23 07:48 Resp 19 H 03/13/23 07:48 BP 175/75 03/13/23 07:48 Pulse Ox 96 03/13/23 07:48 O2 Del Method Room Air 03/13/23 07:48 03/12/23 03/13/23 03/13/23 22:59 06:59 14:59 Intake Total 740 / 1030 400 / 1430 480 / 480 Output Total 3050 / 3050 0 / 3050 Balance -2309 / -2019 400 / -1620 480 / 480 Weight last 48 hrs Weight 99.478 kg Weight 97.2 kg Weight 94.149 kg Physical Exam 2 Narrative: Awake, alert no distress s1s2 rrr per report Lungs clear per report 2+ edema Urinary Catheter Management: Hayes: Cath Placed During This Visit: yes Reason for Continuing Indwelling Catheter: Acute Urinary Retention or Obstruction Urinary Catheter Date of Insertion: 03/08/23 Data 03/13/23 04:27 03/13/23 04:27 Micro: Microbiology 03/12/23 17:05 Blood Culture - Preliminary Blood SPECIMEN COLLECTED 03/12/23 17:08 Blood Culture - Preliminary Blood SPECIMEN COLLECTED A&P Assessment and plan (1) Chronic kidney disease: (2) Acute renal failure: Plan 1. Acute on chronic kidney disease stage 4: Last known creatinine was 1.9 in October 2022. Now has severe LYNN with a creatinine of 8 associated with metabolic acidosis and severe hyperkalemia. -I suspect there is some progression of CKD , also may have superimposed pre renal LYNN but no renal recovery Yet . 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 Hyperkalemia: Status post HD.. Continue with low K diet 3. Metabolic acidosis: S/P bicarbonate drip, has lactic acidosis and LYNN 4. History of diabetes: No hypoglycemic, 5. History of hypertension: Blood pressure controlled, holding meds including HCTZ 6. Anemia: Monitor,ordered MELLISSA 7. MBD : check PTH, Vit D , and Phos Patient evaluated using virtual cart. Time spent 25 minutes Attestations Medical Necessity Statement*: per medicine team Coding Level of Care Code Acute Code for Chg Fwd Diagnoses Chronic kidney disease N18.9 Acute renal failure N17.9
[2023-03-13 12:03] LABS: Glucose Point of Care 305 mg/dL (70-110)
[2023-03-13] MEDS: insulin lispro 100 unit/1 mL SUBCUT ×3 (12:20→21:47)
[2023-03-13] MEDS: amlodipine 10 mg Tablet PO (12:20)
--- NOTE | 2023-03-13 14:21 | PM.PN ---
Subjective Subjective: Seen this morning. He is doing well. Hemoglobin stable at 8.10. He is status post 1 unit packed RBC. Vitals/I&O/Wt Last Vital Signs Temp 97.2 F L 03/13/23 12:00 Pulse 80 03/13/23 12:00 Resp 20 H 03/13/23 12:00 BP 164/72 03/13/23 12:00 Pulse Ox 95 03/13/23 12:00 O2 Del Method Room Air 03/13/23 12:00 03/12/23 03/13/23 03/13/23 22:59 06:59 14:59 Intake Total 740 / 1030 400 / 1430 1010 / 1010 Output Total 3050 / 3050 0 / 3050 Balance -2310 / -2020 400 / -1620 1010 / 1010 Weight last 48 hrs Weight 99.478 kg Weight 97.2 kg Weight 94.149 kg Physical Exam Narrative: General: Alert oriented x3, patient seen laying in bed appearing comfortable HEENT: Normocephalic, atraumatic, EOMI, breathing room air Cardio: Regular rate rhythm, normal S1-S2, Respiratory: Good bilateral air entry, no wheezes no rhonchi appreciated GI: Abdomen soft, nontender, nondistended, bowel sounds + Behavior: Appropriate and cooperative Extremities:1+ Non pitting edema b/l LE Right femoral dialysis catheter present, insertion site appears clean, non erythematous. Dressing peeling off. Urinary Catheter Management: Hayes: Cath Placed During This Visit: yes Reason for Continuing Indwelling Catheter: Acute Urinary Retention or Obstruction Urinary Catheter Date of Insertion: 03/08/23 Data 03/13/23 04:27 03/13/23 04:27 Micro: Microbiology 03/12/23 04:46 Urine Culture - Preliminary Urine,Clean Catch 03/08/23 13:00 Blood Culture - Final Blood NO GROWTH AFTER 5 DAYS 03/08/23 12:55 Blood Culture - Final Blood NO GROWTH AFTER 5 DAYS 03/13/23 06:50 Occult Blood (FIT) - Final Stool Routine Collection 03/12/23 17:05 Blood Culture - Preliminary Blood SPECIMEN COLLECTED 03/12/23 17:08 Blood Culture - Preliminary Blood SPECIMEN COLLECTED A&P Assessment and plan (1) Type 2 diabetes mellitus: Qualifiers: Diabetes mellitus continuous churn buttermaker insulin use: without continuous churn buttermaker use (2) Hypertension: Qualifiers: Hypertension type: essential hypertension Qualified Code(s): I10 - Essential (primary) hypertension (3) Osteoarthritis of right knee: (4) Acute renal failure: (5) Metabolic acidosis: (6) High anion gap metabolic acidosis: (7) Hyperkalemia: (8) Hypoglycemia: (9) Lactic acidosis: (10) Chronic kidney disease: (11) Anuria: Plan #Acute renal failure, LYNN possible pre-renal component. #Hyperkalemia - resolved #Confusion/hypoglycemia prior to arrival #Type 2 diabetes mellitus #High anion gap metabolic acidosis secondary to renal failure #Lactic acidosis - at admission #Hypertension #Chronic kidney disease stage 4 #Anemia possibly 2/2 to chronic disease ? Hold antihypertensives at this time. It seems patient was on valsartan 320 daily, hydrochlorothiazide 6.25 daily. ? Hold antihyperglycemic's glimepiride, metformin at this time - Restart bisoprolol 2.5 daily ? Renal ultrasound. 1. Abnormal kidneys. Kidneys are enlarged and hypoechoic without obstruction. Differential includes bilateral pyelonephritis, lymphoma, acute interstitial/glomerulonephritis. Additional etiologies to consider renal vein thrombosis. There is a more focal thickening involving the superior pole of the LEFT kidney. 2. No hydronephrosis. - Re-order renal doppler to r/o RVT. Low probability but cannot be definitavely excluded. Renal parenchymal disease more likely. ? Continue Hayes catheter. Monitor urine output. ? Nephrology consulted ? CT abdomen pelvis without contrast: 1. A small layering posterior pleural effusion on the left with small amount of subjacent atelectasis left lung base. 2. Qfty-yz-yqweiaxj cardiomegaly with extensive coronary artery calcification. 3. Small benign calcified granuloma left lung base. 4. No acute findings in the chest otherwise.? 1. Extensive vascular calcification of the abdominal aorta and tributaries, without aneurysmal dilatation.? This includes takeoff of the right renal artery. 2. Bilateral perinephric stranding, most likely age related with bilateral findings.? Correlate clinically with urinalysis otherwise.? Kidneys are otherwise unremarkable for unenhanced exam. 3. Hayes catheter within an incompletely distended urinary bladder. 4. Scattered colonic diverticulosis without CT findings diverticulitis.? - Place on empiric zosyn, will complete 7 days - UA shows: 3+ protein, elevated alb/cr ratio. - Check iron 60, ferritin 161, retic count, occult blood test pending - continue to monitor BG AC/HS - avoid insulin at this time. BG goal 140-180 post meal at 2 hours - PTH 68, TSH 2.95 Vit D 29 Today's plan 03/13: Plan for tunnel dialysis catheter this Wednesday. Case management updated to look for chair time for the patient. Continue daily labs Dialysis as per nephrology Encourage patient to get out of bed Hemoglobin 8.0 today. Check occult blood test - neg Change dressing for femoral catheter site. DIet: renal diet, low K DNR/DNI DVT prophylaxis: Heparin subcu twice daily SCDs Attestations Medical Necessity Statement*: Continue management of acute kidney injury. Awaiting outpatient dialysis spot. Tunneled catheter to be placed Wednesday. Diagnoses Type 2 diabetes mellitus E11.9 Diabetes mellitus continuous churn buttermaker insulin use: without fdc use Hypertension I10 Hypertension type: essential hypertension Osteoarthritis of right knee M17.11 Acute renal failure N17.9 Metabolic acidosis E87.20 High anion gap metabolic acidosis E87.29 Hyperkalemia E87.5 Hypoglycemia E16.2 Lactic acidosis E87.20 Chronic kidney disease N18.9 Anuria R34
[2023-03-13 17:10] LABS: Glucose Point of Care 190 mg/dL (70-110)
[2023-03-13 21:08] LABS: Glucose Point of Care 243 mg/dL (70-110)
[2023-03-14] VITALS (8 sets, daily range): BP systolic 138–180; BP diastolic 54–71; PULSE 66–84; RESP 17–19; TEMP 36.2–37.4; O2SAT 93–96
[2023-03-14 05:00] LABS: Basophils % 0.4 %; Eosinophils # 0.4 10^3/uL (0.0-0.8); Eosinophils % 3.4 %; Hematocrit 25.4 % (37-53); Lymphocytes # 2.1 10^3/uL (0.8-4.8); Lymphocytes % 20.2 %; Mean Corpuscular HGB Conc 33.1 g/dL (30-55); Mean Corpuscular Hemoglobin 29.4 pg (27-33); Mean Corpuscular Volume 88.8 fl (82-101); Mean Platelet Volume 9.7 fL (7.4-10.4); Monocytes # 0.9 10^3/uL (0.2-0.9); Monocytes % 8.1 %; Neutrophils # 7.04 10^3/uL (1.8-7.7); Neutrophils % 67.3 %; Nucleated Red Blood Cells % 0 %; Platelet Count 236 10^3/cmm (157-399); Red Blood Count 2.86 10^6/uL (3.85-5.65); White Blood Count 10.46 10^3/uL (3.29-11.43)
[2023-03-14 05:29] LABS: Magnesium 2.1 mg/dL (1.7-2.3); Phosphorus 3.3 mg/dL (2.5-4.5)
[2023-03-14 05:31] LABS: Anion Gap 16.3 (5-19); Blood Urea Nitrogen 36 mg/dL (8-23); Calcium 8.2 mg/dL (8.5-10.5); Carbon Dioxide 24 mmol/L (22-29); Chloride 95 mmol/L (98-107); Glucose 125 mg/dL (65-115); Osmolality Calculated 284 mOsm/kg (285-295); Potassium 3.3 mmol/L (3.5-5.1); Sodium 132 mmol/L (136-145)
[2023-03-14] MEDS: piperacillin-tazobactam 3.375 GM in sodium chloride 0.9% (plus) 50 ML IV ×2 (06:01→18:06)
[2023-03-14 06:53] LABS: Glucose Point of Care 146 mg/dL (70-110)
[2023-03-14] MEDS: pantoprazole 40 mg SDV IVP (08:26)
[2023-03-14] MEDS: heparin 5,000 unit/mL INJ 1 mL 5000 UNIT SUBCUT ×2 (08:27→20:59)
[2023-03-14] MEDS: atorvastatin 40 mg Tablet 80 MG PO (08:28)
[2023-03-14] MEDS: amlodipine 10 mg Tablet PO (08:29)
[2023-03-14] MEDS: insulin lispro 100 unit/1 mL SUBCUT ×4 (08:30→20:59)
[2023-03-14 10:34] LABS: Glucose Point of Care 229 mg/dL (70-110)
--- NOTE | 2023-03-14 10:55 | P.PN_ITS ---
Subjective Subjective: no new complaints Medications: Reviewed: Yes Vitals/I&O/Wt Last Vital Signs Temp 97.2 F L 03/14/23 08:00 Pulse 70 03/14/23 08:00 Resp 19 H 03/14/23 08:00 BP 160/68 03/14/23 08:00 Pulse Ox 95 03/14/23 08:00 O2 Del Method Room Air 03/14/23 08:00 03/13/23 03/14/23 03/14/23 22:59 06:59 14:59 Intake Total 1009 360 / 360 Output Total 200 / 200 150 / 350 Balance 810 / 1820 -150 / 1670 360 / 360 Weight last 48 hrs Weight 98.293 kg Weight 99.478 kg Weight 97.2 kg Physical Exam Narrative: Awake, alert no distress s1s2 rrr per report Lungs clear per report 2+ edema Urinary Catheter Management: Hayes: Cath Placed During This Visit: yes Reason for Continuing Indwelling Catheter: Acute Urinary Retention or Obstruction Urinary Catheter Date of Insertion: 03/08/23 Data 03/14/23 04:16 03/14/23 04:16 Micro: Microbiology 03/12/23 17:05 Blood Culture - Preliminary Blood NEGATIVE TO DATE 03/12/23 17:08 Blood Culture - Preliminary Blood NEGATIVE TO DATE 03/12/23 04:46 Urine Culture - Preliminary Urine,Clean Catch 03/08/23 13:00 Blood Culture - Final Blood NO GROWTH AFTER 5 DAYS 03/08/23 12:55 Blood Culture - Final Blood NO GROWTH AFTER 5 DAYS 03/13/23 06:50 Occult Blood (FIT) - Final Stool Routine Collection A&P Assessment and plan (1) Chronic kidney disease: (2) Acute renal failure: Plan 1. Acute on chronic kidney disease stage 4: Last known creatinine was 1.9 in October 2022. Now has severe LYNN with a creatinine of 8 associated with metabolic acidosis and severe hyperkalemia. -I suspect there is some progression of CKD , also may have superimposed pre renal LYNN but no renal recovery Yet . - serologies negative so far , -no renal recovery so far, HD started , - place tunnelled catheter on Wednesday for correction HD 2. Hyperkalemia: Status post HD.. Continue with low K diet 3. Metabolic acidosis: S/P bicarbonate drip, has lactic acidosis and LYNN 4. History of diabetes: No hypoglycemic, 5. History of hypertension: Blood pressure controlled, holding meds including HCTZ 6. Anemia: Monitor,ordered MELLISSA 7. MBD : check PTH, Vit D , and Phos Patient evaluated using virtual cart. Time spent 25 minutes Attestations Medical Necessity Statement*: per medicine team Coding Level of Care Code Acute Code for g Fwd Diagnoses Chronic kidney disease N18.9 Acute renal failure N17.9
--- NOTE | 2023-03-14 12:37 | P.PN_ITS ---
Subjective Subjective: Patient seen and examined. No complaints. Vitals/I&O/Wt Last Vital Signs Temp 97.2 F L 03/14/23 08:00 Pulse 70 03/14/23 08:00 Resp 19 H 03/14/23 08:00 BP 160/68 03/14/23 08:00 Pulse Ox 95 03/14/23 08:00 O2 Del Method Room Air 03/14/23 08:00 03/13/23 03/14/23 03/14/23 22:59 06:59 14:59 Intake Total 1009 410 / 410 Output Total 200 / 200 150 / 350 Balance 810 / 1820 -150 / 1670 410 / 410 Weight last 48 hrs Weight 216 lb 11.2 oz Weight 219 lb 5 oz Weight 214 lb 4.629 oz Physical Exam Narrative: General: No acute distress, awake alert and oriented x3 Abdomen: Soft, nontender Catheter site clean dry and intact Urinary Catheter Management: Hayes: Cath Placed During This Visit: yes Reason for Continuing Indwelling Catheter: Acute Urinary Retention or Obstruction Urinary Catheter Date of Insertion: 03/08/23 Data 03/14/23 04:16 03/14/23 04:16 Micro: Microbiology 03/12/23 04:46 Urine Culture - Final Urine,Clean Catch 03/12/23 17:05 Blood Culture - Preliminary Blood NEGATIVE TO DATE 03/12/23 17:08 Blood Culture - Preliminary Blood NEGATIVE TO DATE 03/08/23 13:00 Blood Culture - Final Blood NO GROWTH AFTER 5 DAYS 03/08/23 12:55 Blood Culture - Final Blood NO GROWTH AFTER 5 DAYS 03/13/23 06:50 Occult Blood (FIT) - Final Stool Routine Collection A&P Assessment and plan (1) Acute renal failure: Plan Permacath placement The risks and benefits of the procedure, including but not limited to, bleeding, infection, infection requiring catheter removal antibiotic therapy and repeat surgery, damage to surrounding structures, scar, numbness, pain, pneumothorax requiring thoracostomy tube, were explained to the patient. He is understanding of the risks and wishes to proceed. N.p.o. after midnight Attestations Medical Necessity Statement*: Per primary Coding Level of Care Code Acute Code for [facility] Fwd Diagnoses Acute renal failure N17.9
--- NOTE | 2023-03-14 13:27 | P.PN_ITS ---
Subjective Subjective: seen this am no new events hb stable Patient stated his femoral dressing was not changed yesterday Vitals/I&O/Wt Last Vital Signs Temp 97.6 F 03/14/23 12:00 Pulse 84 03/14/23 12:00 Resp 19 H 03/14/23 12:00 BP 161/66 03/14/23 12:00 Pulse Ox 96 03/14/23 12:00 O2 Del Method Room Air 03/14/23 12:00 03/13/23 03/14/23 03/14/23 22:59 06:59 14:59 Intake Total 1009 / 2019 410 / 410 Output Total 200 / 200 150 / 350 Balance 810 / 1820 -150 / 1670 410 / 410 Weight last 48 hrs Weight 98.293 kg Weight 99.478 kg Weight 97.2 kg Physical Exam Narrative: General: Alert oriented x3, patient seen laying in bed appearing comfortable HEENT: Normocephalic, atraumatic, EOMI, breathing room air Cardio: Regular rate rhythm, normal S1-S2, Respiratory: Good bilateral air entry, no wheezes no rhonchi appreciated GI: Abdomen soft, nontender, nondistended, bowel sounds + Behavior: Appropriate and cooperative Extremities:1+ Non pitting edema b/l LE Right femoral dialysis catheter present, insertion site appears clean, non erythematous. Dressing peeling off. Urinary Catheter Management: Hayes: Cath Placed During This Visit: yes Reason for Continuing Indwelling Catheter: Acute Urinary Retention or Obstruction Urinary Catheter Date of Insertion: 03/08/23 Data 03/14/23 04:16 03/14/23 04:16 Micro: Microbiology 03/12/23 04:46 Urine Culture - Final Urine,Clean Catch 03/12/23 17:05 Blood Culture - Preliminary Blood NEGATIVE TO DATE 03/12/23 17:08 Blood Culture - Preliminary Blood NEGATIVE TO DATE 03/08/23 13:00 Blood Culture - Final Blood NO GROWTH AFTER 5 DAYS 03/08/23 12:55 Blood Culture - Final Blood NO GROWTH AFTER 5 DAYS 03/13/23 06:50 Occult Blood (FIT) - Final Stool Routine Collection A&P Assessment and plan (1) Type 2 diabetes mellitus: Qualifiers: Diabetes mellitus half-way insulin use: without terminal superintendent use (2) Hypertension: Qualifiers: Hypertension type: essential hypertension Qualified Code(s): I10 - Essential (primary) hypertension (3) Osteoarthritis of right knee: (4) Acute renal failure: (5) Metabolic acidosis: (6) High anion gap metabolic acidosis: (7) Hyperkalemia: (8) Hypoglycemia: (9) Lactic acidosis: (10) Chronic kidney disease: (11) Anuria: Plan #Acute renal failure, LYNN possible pre-renal component. #Hyperkalemia - resolved #Confusion/hypoglycemia prior to arrival #Type 2 diabetes mellitus #High anion gap metabolic acidosis secondary to renal failure #Lactic acidosis - at admission #Hypertension #Chronic kidney disease stage 4 #Anemia possibly 2/2 to chronic disease ? Hold antihypertensives at this time. It seems patient was on valsartan 320 d aily, hydrochlorothiazide 6.25 daily. ? Hold antihyperglycemic's glimepiride, metformin at this time - Restart bisoprolol 2.5 daily ? Renal ultrasound. 1. Abnormal kidneys. Kidneys are enlarged and hypoechoic without obstruction. Differential includes bilateral pyelonephritis, lymphoma, acute interstitial/glomerulonephritis. Additional etiologies to consider renal vein thrombosis. There is a more focal thickening involving the superior pole of the LEFT kidney. 2. No hydronephrosis. - Re-order renal doppler to r/o RVT. Low probability but cannot be definitavely excluded. Renal parenchymal disease more likely. ? Continue Hayes catheter. Monitor urine output. ? Nephrology consulted ? CT abdomen pelvis without contrast: 1. A small layering posterior pleural effusion on the left with small amount of subjacent atelectasis left lung base. 2. Ectc-fl-jzljdgla cardiomegaly with extensive coronary artery calcification. 3. Small benign calcified granuloma left lung base. 4. No acute findings in the chest otherwise.? 1. Extensive vascular calcification of the abdominal aorta and tributaries, without aneurysmal dilatation.? This includes takeoff of the right renal artery. 2. Bilateral perinephric stranding, most likely age related with bilateral findings.? Correlate clinically with urinalysis otherwise.? Kidneys are otherwise unremarkable for unenhanced exam. 3. Hayes catheter within an incompletely distended urinary bladder. 4. Scattered colonic diverticulosis without CT findings diverticulitis.? - Place on empiric zosyn, will complete 7 days - UA shows: 3+ protein, elevated alb/cr ratio. - Check iron 60, ferritin 161, retic count, occult blood test pending - continue to monitor BG AC/HS - avoid insulin at this time. BG goal 140-180 post meal at 2 hours - PTH 68, TSH 2.95 Vit D 29 Today's plan 03/14: Plan for tunnel dialysis catheter this Wednesday. Case management updated to look for chair time for the patient. Continue daily labs Dialysis as per nephrology Encourage patient to get out of bed Hemoglobin 8.0 today. Check occult blood test - neg Change dressing for femoral catheter site today. discussed with set up and charger as well. DIet: renal diet, low K DNR/DNI DVT prophylaxis: Heparin subcu twice daily SCDs Attestations Medical Necessity Statement*: Continue management of acute kidney injury. Awaiting outpatient dialysis spot. Tunneled catheter to be placed Wednesday. Diagnoses Type 2 diabetes mellitus E11.9 Diabetes mellitus terminal superintendent insulin use: without terminal superintendent use Hypertension I10 Hypertension type: essential hypertension Osteoarthritis of right knee M17.11 Acute renal failure N17.9 Metabolic acidosis E87.20 High anion gap metabolic acidosis E87.29 Hyperkalemia E87.5 Hypoglycemia E16.2 Lactic acidosis E87.20 Chronic kidney disease N18.9 Anuria R34
[2023-03-14 17:12] LABS: Glucose Point of Care 305 mg/dL (70-110)
[2023-03-14 20:47] LABS: Glucose Point of Care 293 mg/dL (70-110)
[2023-03-15] VITALS (21 sets, daily range): BP systolic 106–181; BP diastolic 50–84; PULSE 67–80; RESP 14–20; TEMP 36.1–37.1; O2SAT 91–98
--- NOTE | 2023-03-15 | SC_ITS ---
WS: [id number] Exam: C-arm FL for CVA [id number] Date/Time of Exam: 03/15/2023 12:00 AM Reason For Exam: PERMACATH PLACEMENT C-arm image of the RIGHT chest obtained for intraoperative visualization and guidance. The image depi cts a double lumen RIGHT subclavian catheter. The catheter appears to be in the region of the RIGHT a trium.
[2023-03-15 04:40] LABS: Basophils % 0.5 %; Eosinophils # 0.3 10^3/uL (0.0-0.8); Eosinophils % 3.4 %; Hematocrit 23.7 % (37-53); Lymphocytes # 1.8 10^3/uL (0.8-4.8); Lymphocytes % 19.8 %; Mean Corpuscular HGB Conc 32.5 g/dL (30-55); Mean Corpuscular Hemoglobin 28.6 pg (27-33); Mean Corpuscular Volume 88.1 fl (82-101); Monocytes # 0.8 10^3/uL (0.2-0.9); Monocytes % 8.4 %; Neutrophils # 5.97 10^3/uL (1.8-7.7); Neutrophils % 67.2 %; Nucleated Red Blood Cells % 0 %; Platelet Count 229 10^3/cmm (157-399); Red Blood Count 2.69 10^6/uL (3.85-5.65); Red Cell Distribution Width 14.1 % (12.1-15.1); White Blood Count 8.88 10^3/uL (3.29-11.43)
[2023-03-15 05:02] LABS: Anion Gap 15.3 (5-19); Blood Urea Nitrogen 45 mg/dL (8-23); Calcium 8.3 mg/dL (8.5-10.5); Carbon Dioxide 24 mmol/L (22-29); Chloride 96 mmol/L (98-107); Glucose 134 mg/dL (65-115); Magnesium 2.3 mg/dL (1.7-2.3); Osmolality Calculated 288 mOsm/kg (285-295); Potassium 3.3 mmol/L (3.5-5.1); Sodium 132 mmol/L (136-145)
[2023-03-15] MEDS: piperacillin-tazobactam 3.375 GM in sodium chloride 0.9% (plus) 50 ML IV ×2 (06:56→18:25)
[2023-03-15 07:02] LABS: Glucose Point of Care 152 mg/dL (70-110)
--- NOTE | 2023-03-15 08:13 | P.PN_ITS ---
Vitals/I&O/Wt Last Vital Signs Temp 97.0 F L 03/15/23 07:54 Pulse 77 03/15/23 07:54 Resp 19 H 03/15/23 07:54 BP 151/74 03/15/23 07:54 Pulse Ox 96 03/15/23 07:54 O2 Del Method Room Air 03/14/23 12:00 03/14/23 03/15/23 03/15/23 22:59 06:59 14:59 Intake Total 480 / 1250 50 / 1300 Output Total 100 / 100 50 / 150 Balance 380 / 1150 0 / 1150 Weight last 48 hrs Weight 216 lb 10 oz Weight 216 lb 11.2 oz Physical Exam Urinary Catheter Management: Hayes: Cath Placed During This Visit: yes Reason for Continuing Indwelling Catheter: Other Urinary Catheter Date of Insertion: 03/08/23 Data 03/15/23 02:36 03/15/23 02:36 Micro: Microbiology 03/12/23 04:46 Urine Culture - Final Urine,Clean Catch A&P Assessment and plan (1) Acute renal failure: Plan Permacath placement The risks and benefits of the procedure, including but not limited to, bleeding, infection, infection requiring catheter removal antibiotic therapy and repeat surgery, damage to surrounding structures, scar, numbness, pain, pneumothorax requiring thoracostomy tube, were explained to the patient. He is understanding of the risks and wishes to proceed. N.p.o. after midnight Attestations Medical Necessity Statement*: PER PRIMARY Coding Level of Care Code Acute Code for [facility] Fwd Diagnoses Acute renal failure N17.9
[2023-03-15] MEDS: sodium chloride 0.9% 1,000 ML 30 ML IV (08:22)
--- NOTE | 2023-03-15 08:32 | ANES.PREANE2 ---
Pre-Anesthetic Assessment Height/Weight: Height 1.78 m Weight 98.259 kg Temp Pulse Resp BP Pulse Ox O2 Del Method 97.0 F L 77 19 H 151/74 96 Room Air 03/15/23 07:54 03/15/23 07:54 03/15/23 07:54 03/15/23 07:54 03/15/23 07:54 03/14/23 12:00 Operation Date: 03/15/23 14:10 Proposed Procedures p Dialysis Catheter Insertion(Not Applicable) - Vick Dickson DO Familial anesthetic complications: None Was Beta Genaro taken within 24 hours: Yes Was Clonidine taken within 24 hours: N/A Last intake: Intake Last Liquid Date 03/14/23 Last Liquid Time 20:00 Last Solid Date 03/14/23 Last Solid Time 18:00 Social No alcohol and No tobacco Exam alert, oriented x 3, clear to auscultation bilaterally and regular rate & rhythm Airway Mallampati: Class IV Dentition: full Chronic Renal Failure Metabolic Diabetes Mellitus, Hyperlipidemia and Morbid Obesity Anesthetic Plan ASA status: 4 Anesthesia: MAC Risk of > 500 ml blood loss (7ml/kg in children): No Medications/Allergies Home Medications Medication Instructions Recorded Confirmed Last Taken Type aspirin 81 mg tablet,delayed 81 mg PO QAM 05/11/19 03/08/23 03/08/23 History release multivitamin 1 tab PO QAM 05/11/19 03/08/23 03/08/23 History glimepiride 4 mg tablet 4 mg PO BID 90 days #180 tabs 10/19/22 03/08/23 03/08/23 Rx omega 3-upx-ubj-fish oil 1,200 mg 1 cap PO DAILY 10/19/22 03/08/23 03/08/23 History (144 mg-216 mg) capsule (Fish Oil) metformin 500 mg tablet 1,000 mg PO BID 90 days #360 tabs 01/27/23 03/08/23 03/08/23 Rx bisoprolol 2.5 1 tab PO DAILY 03/08/23 03/08/23 03/08/23 History mg-hydrochlorothiazide 6.25 mg tablet calcium carbonate 600 mg calcium 600 mg PO DAILY 03/08/23 03/08/23 03/08/23 History (1,500 mg) tablet (Calcium) garlic 100 mg tablet 100 mg PO DAILY 03/08/23 03/08/23 03/08/23 History rosuvastatin 40 mg tablet 40 mg PO DAILY 03/08/23 03/08/23 03/08/23 History valsartan 320 mg tablet 320 mg PO DAILY 03/08/23 03/08/23 03/08/23 History vitamins A,C,G-qizz-gwmyvz 4,296 1 cap PO DAILY 03/08/23 03/08/23 03/08/23 History mcg-226 mg-90 mg capsule (PreserVision AREDS) Allergies Allergy/AdvReac Type Severity Reaction Status Date / Time No Known Allergies Allergy Verified 10/19/22 09:37 Current Medications Generic Name Dose Route Start Last Admin Trade Name Freq PRN Reason Stop Dose Admin Acetaminophen 650 mg 03/12/23 16:38 03/12/23 21:38 Acetaminophen 325 Mg Tablet PO 650 mg Q4H PRN Administration MILD PAIN OR INCREASE TEMP Amlodipine Besylate 10 mg 03/13/23 09:45 03/14/23 08:29 Amlodipine 10 Mg Tablet PO 10 mg DAILY OK Administration Atorvastatin Calcium 80 mg 03/11/23 09:00 03/14/23 08:28 Atorvastatin 40 Mg Tablet PO 80 mg DAILY OK Administration Bisoprolol Fumarate 2.5 mg 03/11/23 09:00 03/14/23 08:27 Bisoprolol 5 Mg Tablet PO 2.5 mg DAILY OK Administration Heparin Sodium (Porcine) 5,000 unit 03/08/23 20:00 03/14/23 20:59 Heparin 5,000 Unit/Ml Inj 1 Ml SUBCUT 5,000 unit Q12H OK Administration Piperacillin Sod/Tazobactam 50 mls @ 12.5 mls/hr 03/08/23 19:00 03/15/23 06:56 Sod 3.375 gm/ Sodium Chloride IV 12.5 mls/hr Q12H OK Administration Sodium Chloride 1,000 mls @ 30 mls/hr 03/15/23 08:15 03/15/23 08:22 Sodium Chloride 0.9% IV 03/16/23 08:14 30 mls/hr .Q24H OK Administration Insulin Human Lispro 0 unit 03/10/23 18:00 03/14/23 20:59 Insulin Lispro 100 Unit/1 Ml SUBCUT 8 unit WM&BEDTIME OK Administration Protocol Pantoprazole Sodium 40 mg 03/09/23 09:00 03/14/23 08:26 Pantoprazole 40 Mg Sdv IVP 40 mg DAILY OK Administration PFSH Anesthesia Medical History Hypertension Type 2 diabetes mellitus Family History Father Hypertension CAD (coronary artery disease) Heart disease Brother Heart disease Denies family history of Diabetes Clotting disorder Dementia Hyperlipidemia Psychiatric illness Chronic kidney disease (CKD) Suicide Anesthesia complication Bleeding disorder Family history of premature coronary artery disease Lung disease Cancer Stroke Social History Smoking and tobacco/nicotine status: former use of tobacco/nicotine Quit status (tobacco/nicotine): has quit using Year quit tobacco: 1987 Alcohol intake: never Substance/Drug Use: never Adopted: No Caregiver/support person: No Lives independently: No Household members: spouse Marital status: service: No Current occupational status: retired Sexually active: Yes Do you think of yourself as: Straight/Heterosexual Current gender identity: Male Data Anesthesia 03/15/23 02:36 03/15/23 02:36 Short CBC 03/14/23 03/15/23 Range/Units 04:16 02:36 WBC 10.46 8.88 (3.29-11.43) 10^3/uL Hgb 8.40 L 7.70 L (11.27-16.99) g/dL Hct 25.4 L 23.7 L (37-53) % MCV 88.8 88.1 (82-101) fl Plt Count 236 229 (157-399) 10^3/cmm Neut % (Auto) 67.3 67.2 % Neut # (Auto) 7.04 5.97 (1.8-7.7) 10^3/uL BMP 03/14/23 03/15/23 04:16 02:36 Sodium 132 L 132 L Potassium 3.3 L 3.3 L Chloride 95 L 96 L Carbon Dioxide 24 24 BUN 36 H 45 H Creatinine 7.4 H* 8.9 H* Glucose 125 H 134 H Calcium 8.2 L 8.3 L Microbiology 03/12/23 04:46 Urine Culture - Final Urine,Clean Catch Cardiac Studies: Echocardiogram 03/09/23 Echocardiogram Ultrasound 07/14/19 Sestamibi Stress Test (Cardiology) 10/19/19
[2023-03-15] MEDS: lidocaine-epi 2% 20 mL INJ INJECTION (09:30)
[2023-03-15] MEDS: heparin, porcine 1,000 unit/mL INJ 10 mL 6000 UNIT INTRACATH (09:33)
--- NOTE | 2023-03-15 09:34 | PM.OP ---
Operative Report Date of procedure: March 15, 2023 Pre-op diagnosis: Acute on chronic kidney disease requiring hemodialysis Post-op diagnosis: same Procedure done: Permacath placement Implants: 27 inch permacath Specimens removed/disposition: None Surgeon: Vick Dickson DO Anesthesia: MAC and Local Estimated blood loss (mL): 5 Complications: None apparent Brief History: This is a very pleasant 77-year-old gentleman who was found to have acute on chronic kidney disease. Neurology quested permacath placement. The risk and benefits were explained and documented. Procedure: Patient was taken to the operating room and placed supine on the operating room table. All bony prominences were padded. He was given IV sedation and monitored throughout the case by the anesthesia personnel. SCDs were placed and turned on. The arms were tucked to the side. Patient received Vancomycin preoperatively IV. The bilateral chest wall was prepped and draped in usual sterile fashion using chlorhexidine base prep. Sterile drapes were applied. We did procedure pause prior to beginning. An 18 gauge needle was placed in the right internal jugular vein under ultrasound guidance. Dark, nonpulsatile blood was aspirated. A guidewire was placed through the needle centrally toward the atrial/vena caval junction. Fluoroscopy visualized good placement. The needle was removed and the guidewire was clipped to the drape with a hemostat. Further local anesthetic was infiltrated in the soft tissues of the right chest wall and a #15 blade was used to make a vertical skin incision. A #15 blade was used to make a small skin ju around the guidewire insertion area. The permacath tubing was tunneled through the subcutaneous tissues up to the needle insertion location. Serial dilators were used to serially dilate over the guidewire . A dilator with a peel-away sheath was placed over the guidewire and placed centrally. The guidewire was removed as well as the dilator and the permacath was fed into the split sheath. The split sheath was removed. Both ports were aspirated to reveal dark blood and were flushed with saline only as the patient has a heparin allergy. final fluoroscopy visualization showed no kink in the catheter and the tip of the permacath tubing near the atrial/vena caval junction. Both skin incisions were thoroughly irrigated and suctioned dry. Meticulous hemostasis noted. The internal jugular access site was closed with 4-0 Vicryl in a subcuticular fashion. The skin overlying the permacath was closed in a similar manner. The permacath was then sutured into place using 2-0 nylon in a simple interrupted fashion. skin glue was applied as a topical dressing. This was allowed to dry. Patient was awakened from anesthesia and transferred via her cart to the recovery room in stable condition. All needle, sponge, and instrument counts were correct per the operating personnel x2 counts.
--- NOTE | 2023-03-15 09:38 | XR_ITS ---
WS: [id number] Exam: XR chest 1V portable [id number] Date/Time of Exam: 03/15/2023 9:38 AM Reason For Exam: Postop permacath placement Comparison 03/08/2023. Lungs are fully expanded and clear. A right-sided double-lumen dialysis catheter in place appearing t o end in the RIGHT atrium. Mild cardiac enlargement. No pleural effusion. The osseous thorax is intac t. IMPRESSION: 1. Right-sided double-lumen catheter ending in the RIGHT atrium. 2. Mild cardiac enlargement. No acute process.
--- NOTE | 2023-03-15 10:10 | ANE.PACU2 ---
Inpatient post-anesthesia follow up: Airway intact: Yes Vital signs: Temperature 97.5 F Pulse Rate 80 Respiratory Rate 20 Blood Pressure 159/63 Pulse Oximetry 92 Oxygen Delivery Me thod [ Room Air Current Rate & Del nathan] Oxygen Delivery Me thod Room Air Oxygen Flow Rate 5 Fraction of Inspir ed Oxygen Hydration adequate: Yes Nausea and vomiting: No Pain level: 1 Mental status: Baseline
--- NOTE | 2023-03-15 10:50 | PM.PN ---
Subjective Subjective: s/p tunnelled catheter Medications: Reviewed: Yes Vitals/I&O/Wt Last Vital Signs Temp 98.0 F 03/15/23 10:10 Pulse 75 03/15/23 10:10 Resp 14 03/15/23 10:10 BP 137/67 03/15/23 10:10 Pulse Ox 97 03/15/23 10:10 O2 Del Method Room Air 03/15/23 10:10 O2 Flow Rate 5 03/15/23 09:56 03/14/23 03/15/23 03/15/23 22:59 06:59 14:59 Intake Total 480 / 1250 50 / 1300 50 / 50 Output Total 100 / 100 50 / 150 5 / 5 Balance 380 / 1150 0 / 1150 45 / 45 Weight last 48 hrs Weight 98.259 kg Weight 98.293 kg Physical Exam Narrative: Awake, alert no distress s1s2 rrr per report Lungs clear per report 2+ edema Urinary Catheter Management: Hayes: Cath Placed During This Visit: yes Reason for Continuing Indwelling Catheter: Other Urinary Catheter Date of Insertion: 03/08/23 Data 03/15/23 02:36 03/15/23 02:36 Micro: Microbiology 03/12/23 04:46 Urine Culture - Final Urine,Clean Catch A&P Assessment and plan (1) Chronic kidney disease: (2) Acute renal failure: Plan 1. Acute on chronic kidney disease stage 4: Last known creatinine was 1.9 in October 2022. Now has severe LYNN with a creatinine of 8 associated with metabolic acidosis and severe hyperkalemia. -I suspect there is some progression of CKD , also may have superimposed pre renal LYNN but no renal recovery Yet . 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 Hyperkalemia: Status post HD.. Continue with low K diet 3. Metabolic acidosis: S/P bicarbonate drip, has lactic acidosis and LYNN 4. History of diabetes: No hypoglycemic, 5. History of hypertension: Blood pressure controlled, holding meds including HCTZ 6. Anemia: Monitor,ordered MELLISSA 7. MBD : check PTH, Vit D , and Phos Patient evaluated using virtual cart. Time spent 25 minutes Attestations Medical Necessity Statement*: per medicine team Coding Level of Care Code Acute Code for Chg Fwd Diagnoses Chronic kidney disease N18.9 Acute renal failure N17.9
--- NOTE | 2023-03-15 11:05 | PC.NURSE ---
Patient went to surgery at 0630 per CONTESTANT COORDINATOR
--- NOTE | 2023-03-15 11:05 | PC.NURSE ---
Patient back from surgery at 1020 am
[2023-03-15 11:31] LABS: Glucose Point of Care 163 mg/dL (70-110)
--- NOTE | 2023-03-15 11:32 | P.PN_ITS ---
Subjective Subjective: s/p tunnel catheter today feeling well hb 7.70 fobt negative Vitals/I&O/Wt Last Vital Signs Temp 98.0 F 03/15/23 10:44 Pulse 75 03/15/23 10:44 Resp 14 03/15/23 10:44 BP 137/67 03/15/23 10:44 Pulse Ox 97 03/15/23 10:10 O2 Del Method Room Air 03/15/23 10:10 O2 Flow Rate 5 03/15/23 09:56 03/14/23 03/15/23 03/15/23 22:59 06:59 14:59 Intake Total 480 / 1250 50 / 1300 50 / 50 Output Total 100 / 100 50 / 150 5 / 5 Balance 380 / 1150 0 / 1150 45 / 45 Weight last 48 hrs Weight 98.259 kg Weight 98.293 kg Physical Exam Narrative: General: Alert oriented x3, patient seen laying in bed appearing comfortable HEENT: Normocephalic, atraumatic, EOMI, breathing room air Cardio: Regular rate rhythm, normal S1-S2, Respiratory: Good bilateral air entry, no wheezes no rhonchi appreciated GI: Abdomen soft, nontender, nondistended, bowel sounds + Behavior: Appropriate and cooperative Extremities:2+ Non pitting edema b/l LE Right femoral dialysis catheter removed. 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 #Hyperkalemia - resolved #Confusion/hypoglycemia prior to arrival #Type 2 diabetes mellitus #High anion gap metabolic acidosis secondary to renal failure #Lactic acidosis - at admission #Hypertension #Chronic kidney disease stage 4 #Anemia possibly 2/2 to chronic disease ? Hold antihypertensives at this time. It seems patient was on valsartan 320 daily, hydrochlorothiazide 6.25 daily. ? Hold antihyperglycemic's glimepiride, metformin at this time - Restart bisoprolol 2.5 daily ? Renal ultrasound. 1. Abnormal kidneys. Kidneys are enlarged and hypoechoic without obstruction. Differential includes bilateral pyelonephritis, lymphoma, acute interstitial/glomerulonephritis. Additional etiologies to consider renal vein thrombosis. There is a more focal thickening involving the superior pole of the LEFT kidney. 2. No hydronephrosis. - Re-order renal doppler to r/o RVT. Low probability but cannot be definitavely excluded. Renal parenchymal disease more likely. ? Continue Hayes catheter. Monitor urine output. ? Nephrology consulted ? CT abdomen pelvis without contrast: 1. A small layering posterior pleural effusion on the left with small amount of subjacent atelectasis left lung base. 2. Gzru-st-xudwqwbt cardiomegaly with extensive coronary artery calcification. 3. Small benign calcified granuloma left lung base. 4. No acute findings in the chest otherwise.? 1. Extensive vascular calcification of the abdominal aorta and tributaries, without aneurysmal dilatation.? This includes takeoff of the right renal artery. 2. Bilateral perinephric stranding, most likely age related with bilateral findings.? Correlate clinically with urinalysis otherwise.? Kidneys are otherwise unremarkable for unenhanced exam. 3. Hayes catheter within an incompletely distended urinary bladder. 4. Scattered colonic diverticulosis without CT findings diverticulitis.? - Place on empiric zosyn, will complete 7 days - UA shows: 3+ protein, elevated alb/cr ratio. - Check iron 60, ferritin 161, retic count, occult blood test pending - continue to monitor BG AC/HS - avoid insulin at this time. BG goal 140-180 post meal at 2 hours - PTH 68, TSH 2.95 Vit D 29 Patient is chest pain free. ECho reviewed, Normal LV size and ejection fraction of? 67%,( based on contrast ?echo and MOD). ? Mild hypokinesia of the basal inferior wall segment. Will discuss results with him. Today's plan 11/13: Plan for tunnel dialysis catheter placed today. Case management updated to look for chair time for the patient. Continue daily labs Dialysis as per nephrology Encourage patient to get out of bed Hemoglobin 7.7 today. Check occult blood test - neg DIet: renal diet, low K DNR/DNI DVT prophylaxis: Heparin subcu twice daily SCDs Attestations Medical Necessity Statement*: awaiting chair time. needs continued hospitalization for anemia, ESRD Coding Level of Care Code 86212 Moderate MDM includes number and complexity of problems actively addressed during encounter, amount and/or complexity of data reviewed/ordered and described risk of complication, morbidity or mortality of management as document ed Diagnoses Type 2 diabetes mellitus E11.9 Diabetes mellitus long-term insulin use: without long-term use Hypertension I10 Hypertension type: essential hypertension Osteoarthritis of right knee M17.11 Acute renal failure N17.9 Metabolic acidosis E87.20 High anion gap metabolic acidosis E87.29 Hyperkalemia E87.5 Hypoglycemia E16.2 Lactic acidosis E87.20 Chronic kidney disease N18.9 Anuria R34
[2023-03-15] MEDS: epoetin alfa 1000 Unit/0.05 mL (ESRD) 20000 UNIT IVP (13:55)
[2023-03-15] MEDS: heparin, porcine 1,000 unit/mL INJ 10 mL 1000 UNIT IV (16:47)
--- NOTE | 2023-03-15 16:49 | ECG_ITS ---
[facility] Test Date: 2023-03-16 Pat Name: David Logan Department: Room: 254 Gender: Male Protein Scientist: : 1945 Requested By: Nancy Navas Order Number: [id number] Eleazar MD: Timothy Watts M.D. Interpretive Statements NAME OF STUDY: LEXISCAN SESTAMIBI STRESS TEST INDICATION: Wall motion abnormility by echo RESULTS TO DR LEON PROCEDURE: At the baseline, the EKG revealed normal sinus rhythm with a diffuse nonspecific T wave changes.. The baseline heart was 75 bpm with a blood pressue of 128/59 mm of Hg Lexiscan was infused over a period of 20 seconds. A total of 0.4 milligrams of Lexiscan was infused. The stress phase was continued for a total of 5 minutes. Heart rate at the end of the stress phase was 82 bpm with a blood pressure 120/62 mm of Hg. The EKG at the peak infusion revealed no significant changes. Sestamibi was injected 20 seconds after the Lexiscan infusion. Heart rate at the end of the recovery phase was 84 bpm with a blood pressure of 128/62 mm of Hg. CONCLUSION: 1. No significant EKG changes with the LexiScan infusion 2. No LexiScan induced chest pain or cardiac arrhythmia 3. Normal blood pressure and heart rate response 4. Sestamibi/sestamibi perfusion scan pending; see separate report. Electronically Signed On 03-19-2023 13:19:25 WOOD POLE TREATER by Timothy Watts M.D. [email or web address]
[2023-03-15 17:28] LABS: Glucose Point of Care 256 mg/dL (70-110)
[2023-03-15] MEDS: insulin lispro 100 unit/1 mL SUBCUT ×2 (18:24→22:23)
[2023-03-15] MEDS: heparin 5,000 unit/mL INJ 1 mL 5000 UNIT SUBCUT (20:42)
[2023-03-15 20:54] LABS: Glucose Point of Care 272 mg/dL (70-110)
--- NOTE | 2023-03-15 23:12 | PC.NURSE ---
Patient had 3 cans of chewing tobacco at the bedside, this nurse educated patient that he cannot have any nicotine before stress test in the morning, patient verbalized understanding. The cans were removed from bedside and placed in [facility] and patient stated he didn't have anymore nicotine or tobacco products on him.
[2023-03-16] VITALS (12 sets, daily range): BP systolic 128–179; BP diastolic 67–82; PULSE 65–91; RESP 14–20; TEMP 36.4–37.1; O2SAT 94–97
[2023-03-16 05:00] LABS: Basophils % 0.4 %; Eosinophils # 0.4 10^3/uL (0.0-0.8); Eosinophils % 4.3 %; Hematocrit 24.3 % (37-53); Lymphocytes # 1.6 10^3/uL (0.8-4.8); Mean Corpuscular HGB Conc 32.9 g/dL (30-55); Mean Platelet Volume 9.4 fL (7.4-10.4); Monocytes # 0.9 10^3/uL (0.2-0.9); Monocytes % 10.6 %; Neutrophils # 5.25 10^3/uL (1.8-7.7); Neutrophils % 64.2 %; Nucleated Red Blood Cells % 0 %; Platelet Count 216 10^3/cmm (157-399); Red Blood Count 2.76 10^6/uL (3.85-5.65); Red Cell Distribution Width 14.2 % (12.1-15.1); White Blood Count 8.17 10^3/uL (3.29-11.43)
[2023-03-16 05:25] LABS: Anion Gap 14.4 (5-19); Blood Urea Nitrogen 28 mg/dL (8-23); Calcium 8.6 mg/dL (8.5-10.5); Carbon Dioxide 26 mmol/L (22-29); Chloride 97 mmol/L (98-107); Glucose 105 mg/dL (65-115); Magnesium 2.2 mg/dL (1.7-2.3); Osmolality Calculated 284 mOsm/kg (285-295); Potassium 3.4 mmol/L (3.5-5.1); Sodium 134 mmol/L (136-145)
[2023-03-16] MEDS: piperacillin-tazobactam 3.375 GM in sodium chloride 0.9% (plus) 50 ML IV ×2 (06:15→18:06)
[2023-03-16 06:37] LABS: Glucose Point of Care 110 mg/dL (70-110)
[2023-03-16] MEDS: regadenoson 0.4 Mg/5 ml Syringe IVP (08:40)
--- NOTE | 2023-03-16 09:00 | NMCV_ITS ---
NM christianne perf SPECT r/s* [id number] David Logan Age: 77 Gender: M : 1945 Exam Date: 03/16/2023 07:35 Ordering Phys: Nancy Navas MD Technologist: OSKAR Gonzalez Exam Location: [facility] Indications: CHEST PAIN STRESS TEST Please see separate stress test report in [facility] for full findings IMAGE PROTOCOL Rest/Stress 1 Lexiscan Day Radiopharmaceutical Dose (mCi) Administration Site Administered by Rest: Tc-99m 10.9 IV OSKAR Simmons Sestamibi Stress:Tc-99m 33.0 IV OSKAR Simmons Sestamibi Rest: 16-Mar-2023 60 Discovery 630 Stress: 16-Mar-2023 30 Discovery 630 0.4mg Lexiscan. Supine position only as patient was unable to lay prone. SPECT RESULTS Technical Quality: Excellent Raw Data Analysis: Normal Image Corrections: No attenuation or motion correction applied Summed Stress Score: 16 Summed Rest Score: 12 Summed Difference Score: 4 PERFUSION FINDINGS Moderate to severely decreased tracer uptake was noted in the basal and mid inferolateral, basal and mid anterolateral, basal and mid anterior and apical lateral regions. Some reversibility was noted in the anterior and anterolateral regions. FUNCTIONAL RESULTS (calculated via Gated SPECT) Stress Image LV EF (%): 44 Stress EDV (mL):147 TID: 0.94 Stress ESV (mL):83 FUNCTIONAL FINDINGS: Segmental wall motion analysis revealed a mild diffuse hypokinesia of the apex, septum and inferior wall regions. IMPRESSIONS 1. Myocardial perfusion imaging revealing moderate to large area of persistent decreased tracer uptake involving the anterior, anterolateral, inferolateral and apical lateral regions with some reversibility in the anterior and anterolateral regions, suggesting myocardial scarring in the distribution of the left anterior descending artery and the circumflex artery with some small areas of ivy-infarction ischemia 2. Diminished LV ejection fraction of 44%, 3. Wall motion abnormalities as mentioned above. 4. Dilated LV cavity with an LV end systolic volume of 83 mL Compared to study from 10/19/2019 the perfusion abnormalities and the drop in the LV ejection fraction are new Dr Timothy Watts MD [facility] (Electronically Signed) Final Date: 16 March 2023 17:01 S
--- NOTE | 2023-03-16 09:22 | P.PN_ITS ---
Subjective Subjective: no new complaints Medications: Reviewed: Yes Vitals/I&O/Wt Last Vital Signs Temp 97.5 F L 03/16/23 08:00 Pulse 84 03/16/23 09:05 Resp 20 H 03/16/23 08:00 BP 128/82 03/16/23 09:05 Pulse Ox 97 03/16/23 08:00 O2 Del Method Room Air 03/15/23 10:10 O2 Flow Rate 5 03/15/23 09:56 03/15/23 03/16/23 03/16/23 22:59 06:59 14:59 Intake Total 530 / 1080 960 / 960 Output Total 75 / 3065 50 / 3115 Balance 455 / -1985 -50 / -2034 960 / 960 Weight last 48 hrs Weight 98.174 kg Weight 98.4 kg Weight 98.259 kg Physical Exam Narrative: Awake, alert no distress s1s2 rrr per report Lungs clear per report 2+ edema Urinary Catheter Management: Hayes: Cath Placed During This Visit: yes Reason for Continuing Indwelling Catheter: Other Urinary Catheter Date of Insertion: 03/08/23 Data 03/16/23 04:38 03/16/23 04:38 A&P Assessment and plan (1) Chronic kidney disease: (2) Acute renal failure: Plan 1. Acute on chronic kidney disease stage 4: Last known creatinine was 1.9 in October 2022. Now has severe LYNN with a creatinine of 8 associated with metabolic acidosis and severe hyperkalemia. -I suspect there is some progression of CKD , also may have superimposed pre renal LYNN but no renal recovery Yet . - serologies negative so far , -no renal recovery so far, HD started , -s/p tunnelled catheter placement for assisted HD 2. Hyperkalemia: Status post HD.. Continue with low K diet 3. Metabolic acidosis: S/P bicarbonate drip, has lactic acidosis and LYNN 4. History of diabetes: No hypoglycemic, 5. History of hypertension: Blood pressure controlled, holding meds including HCTZ 6. Anemia: Monitor,ordered MELLISSA Patient evaluated using virtual cart. Time spent 25 minutes Attestations Medical Necessity Statement*: per medicine team Coding Level of Care Code Acute Code for [facility] Diagnoses Chronic kidney disease N18.9 Acute renal failure N17.9
[2023-03-16] MEDS: pantoprazole 40 mg SDV IVP (10:47)
[2023-03-16] MEDS: heparin 5,000 unit/mL INJ 1 mL 5000 UNIT SUBCUT ×2 (10:47→21:00)
[2023-03-16] MEDS: amlodipine 10 mg Tablet PO (10:49)
[2023-03-16] MEDS: atorvastatin 40 mg Tablet 80 MG PO (10:50)
[2023-03-16 11:30] LABS: Glucose Point of Care 230 mg/dL (70-110)
--- NOTE | 2023-03-16 12:18 | PM.PN ---
Subjective Subjective: seen this am no acute events overnight pt sitting up edge of bed appearing comfortable he returned from stress test this AM. Vitals/I&O/Wt Last Vital Signs Temp 97.5 F L 03/16/23 08:00 Pulse 84 03/16/23 09:05 Resp 20 H 03/16/23 08:00 BP 128/82 03/16/23 09:05 Pulse Ox 97 03/16/23 08:00 O2 Del Method Room Air 03/15/23 10:10 O2 Flow Rate 5 03/15/23 09:56 03/15/23 03/16/23 03/16/23 22:59 06:59 14:59 Intake Total 530 / 1080 960 / 960 Output Total 75 / 3065 50 / 3115 Balance 455 / -1985 -50 / -5 960 / 960 Weight last 48 hrs Weight 98.174 kg Weight 98.4 kg Weight 98.259 kg Physical Exam Narrative: General: Alert oriented x3, patient seen laying in bed appearing comfortable HEENT: Normocephalic, atraumatic, EOMI, breathing room air Cardio: Regular rate rhythm, normal S1-S2, Respiratory: Good bilateral air entry, no wheezes no rhonchi appreciated GI: Abdomen soft, nontender, nondistended, bowel sounds + Behavior: Appropriate and cooperative Extremities:2+ Non pitting edema b/l LE Right femoral dialysis catheter not removed. 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 #Hyperkalemia - resolved #Confusion/hypoglycemia prior to arrival #Type 2 diabetes mellitus #High anion gap metabolic acidosis secondary to renal failure #Lactic acidosis - at admission #Hypertension #Chronic kidney disease stage 4 #Anemia possibly 2/2 to chronic disease #Hypokinesia of basal inferior segment on ECHO ? Hold antihypertensives at this time. It seems patient was on valsartan 320 daily, hydrochlorothiazide 6.25 daily. ? Hold antihyperglycemic's glimepiride, metformin at this time - Restart bisoprolol 2.5 daily ? Renal ultrasound. 1. Abnormal kidneys. Kidneys are enlarged and hypoechoic without obstruction. Differential includes bilateral pyelonephritis, lymphoma, acute interstitial/glomerulonephritis. Additional etiologies to consider renal vein thrombosis. There is a more focal thickening involving the superior pole of the LEFT kidney. 2. No hydronephrosis. - Re-order renal doppler to r/o RVT. Low probability but cannot be definitavely excluded. Renal parenchymal disease more likely. ? Continue Hayes catheter. Monitor urine output. ? Nephrology consulted ? CT abdomen pelvis without contrast: 1. A small layering posterior pleural effusion on the left with small amount of subjacent atelectasis left lung base. 2. Cdfq-bb-hbvwwgtk cardiomegaly with extensive coronary artery calcification. 3. Small benign calcified granuloma left lung base. 4. No acute findings in the chest otherwise.? 1. Extensive vascular calcification of the abdominal aorta and tributaries, without aneurysmal dilatation.? This includes takeoff of the right renal artery. 2. Bilateral perinephric stranding, most likely age related with bilateral findings.? Correlate clinically with urinalysis otherwise.? Kidneys are otherwise unremarkable for unenhanced exam. 3. Hayes catheter within an incompletely distended urinary bladder. 4. Scattered colonic diverticulosis without CT findings diverticulitis.? - Place on empiric zosyn, will complete 7 days - UA shows: 3+ protein, elevated alb/cr ratio. - Check iron 60, ferritin 161, retic count, occult blood test pending - continue to monitor BG AC/HS - avoid insulin at this time. BG goal 140-180 post meal at 2 hours - PTH 68, TSH 2.95 Vit D 29 Patient is chest pain free. ECho reviewed, Normal LV size and ejection fraction of? 67%,( based on contrast ?echo and MOD). ? Mild hypokinesia of the basal inferior wall segment. Will discuss results with him. Today's plan 03/16: tunnel dialysis catheter placed 03/15 dialysis chair time setup for MWF Continue daily labs Dialysis as per nephrology Encourage patient to get out of bed Hemoglobin 8 today. Check occult blood test - neg Femoral catheter to be removed today - Awaiting results of stress test. DIet: renal diet, low K DNR/DNI DVT prophylaxis: Heparin subcu twice daily SCDs Attestations Medical Necessity Statement*: Awaiting results of stress test Diagnoses Type 2 diabetes mellitus E11.9 Diabetes mellitus senior care insulin use: without roasterman use Hypertension I10 Hypertension type: essential hypertension Osteoarthritis of right knee M17.11 Acute renal failure N17.9 Metabolic acidosis E87.20 High anion gap metabolic acidosis E87.29 Hyperkalemia E87.5 Hypoglycemia E16.2 Lactic acidosis E87.20 Chronic kidney disease N18.9 Anuria R34
[2023-03-16] MEDS: insulin lispro 100 unit/1 mL SUBCUT ×3 (13:27→21:00)
--- NOTE | 2023-03-16 13:55 | PC.NURSE ---
Dr. Dickson stated to pull temporary dialysis catheter from patient right groin. Dialysis nurse and this patient pulled catheter which appeared to be intact. No bleeding at time of pressure release.
[2023-03-16 17:14] LABS: Glucose Point of Care 268 mg/dL (70-110)
--- NOTE | 2023-03-16 18:28 | PM.CONSULT ---
Providers/Reason For Consult Consulting Physician/Specialty*: Cardiovascular medicine Reason for Consult*: Abnormal stress test Requesting Physician: Hospitalist Attending Physician: Nancy Navas MD Primary Care Provider: ELLIE Asif History of Present Illness History of Present Illness David Logan is a 77 year old male who was admitted 8 days ago on the sixth of the month. He was confused at home and the thought was that he was hypoglycemic. He is a diabetic. He was anemic with a hemoglobin of 7.6 and his creatinine had increased to 8.4 from the previous reading of 1.9. He had a metabolic acidosis associated with his renal failure and he was hyperkalemic. His potassium was 7.2. He was admitted and nephrology was consulted. A temporary dialysis catheter was placed and he began to undergo hemodialysis. His creatinine is now down to 6.1 and his potassium has normalized. Today it is 3.4. He has a history of chronic kidney disease though it had been mild. He has hypertension, diabetes and degenerative joint disease. He quit smoking in 1986. He is not fond of following up with physicians and in fact has not followed up with his ladler, a janitor cleaner whom he saw in 06/22/2019 or his primary care physician. Over his 8-day hospital stay he had an echo on the sixth. I still cannot see the indication for the echo. It revealed normal left ventricular size with an ejection fraction of 67%. It was a poor quality study and revealed a suggestion of mild hypokinesis of the inferior wall. This of course prompted a sestamibi examination today which revealed moderate to large persistent anterior, anterolateral and inferolateral as well as apical lateral defect. This suggests a scar or fixed defect in the distribution of the LAD and circumflex with a very small area of ivy-infarct ischemia. The ejection fraction is 44%. It is noteworthy that he had a sestamibi on 10/19/2019 which was read as normal. He also had an echo in July 2019 which was read as normal. His EKGs, other than poor R wave progression in leads V1 and V2 are normal. This has been the case over time. No Q waves and no ST segment changes. Most interesting about all of this is that he has never had any evidence of coronary artery disease and denies any chest pain whatsoever. I have been asked to see him because of the abnormal stress test. Medications/Allergies Home Medications Medication Instructions Recorded Confirmed Last Taken Type aspirin 81 mg tablet,delayed 81 mg PO QAM 05/11/19 03/08/23 03/08/23 History release multivitamin 1 tab PO QAM 05/11/19 03/08/23 03/08/23 History glimepiride 4 mg tablet 4 mg PO BID 90 days #180 tabs 10/19/22 03/08/23 03/08/23 Rx omega 5-rqa-tkf-fish oil 1,200 mg 1 cap PO DAILY 10/19/22 03/08/23 03/08/23 History (144 mg-216 mg) capsule (Fish Oil) metformin 500 mg tablet 1,000 mg PO BID 90 days #360 tabs 01/27/23 03/08/23 03/08/23 Rx bisoprolol 2.5 1 tab PO DAILY 03/08/23 03/08/23 03/08/23 History mg-hydrochlorothiazide 6.25 mg tablet calcium carbonate 600 mg calcium 600 mg PO DAILY 03/08/23 03/08/23 03/08/23 History (1,500 mg) tablet (Calcium) garlic 100 mg tablet 100 mg PO DAILY 03/08/23 03/08/23 03/08/23 History rosuvastatin 40 mg tablet 40 mg PO DAILY 03/08/23 03/08/23 03/08/23 History valsartan 320 mg tablet 320 mg PO DAILY 03/08/23 03/08/23 03/08/23 History vitamins A,C,R-lknz-rlyywa 4,296 1 cap PO DAILY 03/08/23 03/08/23 03/08/23 History mcg-226 mg-90 mg capsule (PreserVision AREDS) Allergies Allergy/AdvReac Type Severity Reaction Status Date / Time No Known Allergies Allergy Verified 10/19/22 09:37 Current Medications Generic Name Dose Route Start Last Admin Trade Name Freq PRN Reason Stop Dose Admin Acetaminophen 650 mg 03/12/23 16:38 03/12/23 21:38 Acetaminophen 325 Mg Tablet PO 650 mg Q4H PRN Administration MILD PAIN OR INCREASE TEMP Amlodipine Besylate 10 mg 03/13/23 09:45 03/16/23 10:49 Amlodipine 10 Mg Tablet PO 10 mg DAILY OK Administration Atorvastatin Calcium 80 mg 03/11/23 09:00 03/16/23 10:50 Atorvastatin 40 Mg Tablet PO 80 mg DAILY OK Administration Bisoprolol Fumarate 2.5 mg 03/11/23 09:00 03/16/23 10:50 Bisoprolol 5 Mg Tablet PO 2.5 mg DAILY OK Administration Heparin Sodium (Porcine) 5,000 unit 03/08/23 20:00 03/16/23 10:47 Heparin 5,000 Unit/Ml Inj 1 Ml SUBCUT 5,000 unit Q12H OK Administration Piperacillin Sod/Tazobactam 50 mls @ 12.5 mls/hr 03/08/23 19:00 03/16/23 18:06 Sod 3.375 gm/ Sodium Chloride IV 12.5 mls/hr Q12H OK Administration Insulin Human Lispro 0 unit 03/10/23 18:00 03/16/23 18:04 Insulin Lispro 100 Unit/1 Ml SUBCUT 6 unit WM&BEDTIME OK Administration Protocol Pantoprazole Sodium 40 mg 03/09/23 09:00 03/16/23 10:47 Pantoprazole 40 Mg Sdv IVP 40 mg DAILY OK Administration PFSH Acute PFSH: Medical History (Updated 03/16/23 @ 18:41 by Wood Duncan MD) Abnormal stress test Hypertension Type 2 diabetes mellitus Family History Father Hypertension CAD (coronary artery disease) Heart disease Brother Heart disease Denies family history of Diabetes Clotting disorder Dementia Hyperlipidemia Psychiatric illness Chronic kidney disease (CKD) Suicide Anesthesia complication Bleeding disorder Family history of premature coronary artery disease Lung disease Cancer Stroke Social History Smoking and tobacco/nicotine status: former use of tobacco/nicotine Quit status (tobacco/nicotine): has quit using Year quit tobacco: 1986 Alcohol intake: never Substance/Drug Use: never Adopted: No Caregiver/support person: No Lives independently: No Household members: spouse Marital status: service: No Current occupational status: retired Sexually active: Yes Do you think of yourself as: Straight/Heterosexual Current gender identity: Male Vitals/I&O/Wt Last Vital Signs Temp 98.2 F 03/16/23 16:00 Pulse 67 03/16/23 16:00 Resp 18 03/16/23 16:00 BP 161/72 03/16/23 16:00 Pulse Ox 94 03/16/23 16:00 O2 Del Method Room Air 03/15/23 10:10 O2 Flow Rate 5 03/15/23 09:56 03/16/23 03/16/23 03/16/23 06:59 14:59 22:59 Intake Total 1250 / 1250 480 / 1730 Output Total 50 / 3115 100 / 100 Balance -50 / -2035 1150 / 1150 480 / 1630 Weight last 48 hrs Weight 216 lb 7 oz Weight 216 lb 14.958 oz Weight 216 lb 10 oz Physical Exam Narrative: GENERAL: In general he is awake and alert, oriented x3 and quite interactive HEENT: Exam within normal limits. NECK: Supple without jugular vein distention. The carotid upstroke is normal without bruits. BACK: Exam normal. LUNGS: Clear. HEART: Regular rate and rhythm. ABDOMEN: Benign without organomegaly or tenderness. EXTREMITIES: No edema. NEUROLOGIC: Exam normal. SKIN: Unremarkable. 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 3 years ago both the sestamibi exam and the echo were normal. The echo on the sixth revealed normal ejection fraction with mild hypokinesis of the inferior wall. This corresponds to the right coronary artery. Today's sestamibi examination was read by the same individual showing a very persistent fixed, medium to large size defect in the distribution of the LAD and circumflex with a small area of ivy-infarct ischemia however the ejection fraction was read as 44%. It is noteworthy that ejection fractions read on sestamibi examination are often underestimated. I think it is important to pay attention to the patient's lack of symptoms and his normal EKG. I think the radiologic and ultrasound information are incongruent. Even if the sestamibi examination is to some degree correct it is a relatively low risk scan because the major abnormality is a fixed defect with a small area of ivy-infarct ischemia. This scan by itself does not warrant coronary angiography. The echo suggests an abnormality in the inferior wall. If the large fixed defect noted on the sestamibi examination was factual, the echo should reveal that as well but it does not at least according to the report. Given the patient's lack of symptoms, lack of EKG changes and the incongruent information on testing, it is correct to treat him medically and avoid coronary angiography at this point. I explained this to him in detail and he is in agreement. He would like to go home tomorrow. I would be in favor of his discharge home. Consult Attestations Medical Necessity Statement: Hospitalization for the above-mentioned medical problems. It is my feeling he can go home. and High Time for a total of 62 minutes, includes reviewing past or interval history, examining/interviewing patient, counseling patient/family/other support, updating patient/family/other support, communicating with other healthcare providers and documenting encounter Diagnoses Anuria R34 Chronic kidney disease N18.9 Lactic acidosis E87.20 Hypoglycemia E16.2 Hyperkalemia E87.5 Metabolic acidosis E87.20 Acute renal failure N17.9 Type 2 diabetes mellitus E11.9 Diabetes mellitus [facility] insulin use: without intermodal owner operator truck driver use Hypertension I10 Hypertension type: essential hypertension Abnormal stress test R94.39
[2023-03-16 20:38] LABS: Glucose Point of Care 309 mg/dL (70-110)
[2023-03-16] MEDS: hyDRALAzine 50 mg Tablet 25 MG PO (21:00)
[2023-03-17 03:48] VITALS: BP 134/62; PULSE 69; RESP 16; TEMP 36.8; O2SAT 95
[2023-03-17 05:38] VITALS: PULSE 76
[2023-03-17 06:52] LABS: Glucose Point of Care 185 mg/dL (70-110)
--- NOTE | 2023-03-17 07:07 | PM.PN ---
Subjective Subjective: No problems overnight. He is anxious to go home. Vitals/I&O/Wt Last Vital Signs Temp 98.3 F 03/17/23 03:48 Pulse 76 03/17/23 05:38 Resp 16 03/17/23 03:48 BP 134/62 03/17/23 03:48 Pulse Ox 95 03/17/23 03:48 O2 Del Method Room Air 03/15/23 10:10 O2 Flow Rate 5 03/15/23 09:56 03/16/23 03/17/23 03/17/23 22:59 06:59 14:59 Intake Total 1510.417 / 2760.417 Output Total 0 / 100 300 / 400 Balance 1510.417 / 2660.417 -300 / 2360.417 Weight last 48 hrs Weight 218 lb 7 oz Weight 216 lb 7 oz Weight 216 lb 14.958 oz Physical Exam Narrative: GENERAL: In general he looks and feels well. HEENT: Exam within normal limits. NECK: Supple without jugular vein distention. The carotid upstroke is normal without bruits. BACK: Exam normal. LUNGS: Clear. HEART: Regular rate and rhythm. ABDOMEN: Benign without organomegaly or tenderness. EXTREMITIES: No edema. NEUROLOGIC: Exam normal. SKIN: Unremarkable. 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 Attestations Medical Necessity Statement*: Able to go home today and Straight Forward/Low Time for a total of 15 minutes, includes reviewing past or interval history, examining/interviewing patient, updating patient/family/other support and documenting encounter Diagnoses Abnormal stress test R94.39 Anuria R34 Chronic kidney disease N18.9 Lactic acidosis E87.20 Hyperkalemia E87.5 Hypoglycemia E16.2 High anion gap metabolic acidosis E87.29 Metabolic acidosis E87.20 Type 2 diabetes mellitus E11.9 Diabetes mellitus fdc insulin use: without [facility]dc use Hypertension I10 Hypertension type: essential hypertension
[2023-03-17] MEDS: hyDRALAzine 50 mg Tablet 25 MG PO (08:10)
[2023-03-17] MEDS: atorvastatin 40 mg Tablet 80 MG PO (08:10)
[2023-03-17] MEDS: amlodipine 10 mg Tablet PO (08:10)
[2023-03-17] MEDS: pantoprazole 40 mg SDV IVP (08:11)
[2023-03-17] MEDS: insulin lispro 100 unit/1 mL SUBCUT ×2 (08:11→11:58)
[2023-03-17] MEDS: heparin 5,000 unit/mL INJ 1 mL 5000 UNIT SUBCUT (08:11)
[2023-03-17 08:31] VITALS: BP 159/61; PULSE 73; RESP 18; TEMP 36.6; O2SAT 96
--- NOTE | 2023-03-17 09:49 | PM.DCS ---
Discharge Providers Date of Admission: 03/08/23 13:41 Date of Discharge: March 17, 2023 Attending Provider at Admission: Nancy Navas MD Attending Provider at Discharge: Nancy Navas MD Primary Care Provider: DOM CEDILLO MD Diagnoses at Discharge Discharge Diagnosis (1) Anuria: Status: Acute (2) Chronic kidney disease: Status: Acute (3) Lactic acidosis: Status: Acute (4) Hypoglycemia: Status: Acute (5) Hyperkalemia: Status: Acute (6) Metabolic acidosis: Status: Acute (7) Acute renal failure: Status: Acute (8) Type 2 diabetes mellitus: Status: Acute Qualifiers: Diabetes mellitus longterm insulin use: without ad terminal makeup operator use (9) Hypertension: Status: Acute Qualifiers: Hypertension type: essential hypertension Qualified Code(s): I10 - Essential (primary) hypertension (10) Abnormal stress test: Status: Acute Reason for Visit Reason for Visit: disoriented, has diabetes Hospital Course Hospital Course David Logan is a 77 year old male who was admitted 8 days ago on the sixth of the month.? He was confused at home and the thought was that he was hypoglycemic.? He is a diabetic.? He was anemic with a hemoglobin of 7.6 and his creatinine had increased to 8.4 from the previous reading of 1.9.? He had a metabolic acidosis associated with his renal failure and he was hyperkalemic.? His potassium was 7.2.? He was admitted and nephrology was consulted.? His creatinine is now down to 6.1 and his potassium has normalized.? Patient has been setup with tunnelled dialysis catheter and will be on dialysis MWF. His chair time has been setup. Patient was also tx with 7 days of zosyn empirically. Patient also had an echo done during hospital stay which showed basal wall hypokinesis. Stress test was done which showed moderate to large persistent anterior, anterolateral and inferolateral as well as apical lateral defect.? This suggests a scar or fixed defect in the distribution of the LAD and circumflex with a very small area of ivy-infarct ischemia.? The ejection fraction is 44%. Cardiology was consulted. Patient to be medically managed at this time. He is not symptomatic and chest pain free. See consult note. Patient will be discharged home in stable condition. Patients metformin and glimepiride will be stopped a discharge. A1c IS 7.4 WITH goal of < 8 given his age. he will follow up with Dr. Cedillo as his new PCP as oupatient. I talked with Dr. Cedillo and updated him on the case. Physical Exam Narrative: General: Alert oriented x3, patient seen laying in bed appearing comfortable HEENT: Normocephalic, atraumatic, EOMI, breathing room air Cardio: Regular rate rhythm, normal S1-S2, Respiratory: Good bilateral air entry, no wheezes no rhonchi appreciated GI: Abdomen soft, nontender, nondistended, bowel sounds + Behavior: Appropriate and cooperative Extremities:2+ Non pitting edema b/l LE Right femoral dialysis catheter site nonfluctuant. No evidence of hematoma.. Tunneled catheter placed in right side of chest. Urinary Catheter Management: Hayes: Cath Placed During This Visit: yes Reason for Continuing Indwelling Catheter: Other Urinary Catheter Date of Insertion: 03/08/23 Discharge Data Studies Completed and Pending Completed Studies During Hospitalization Category Date Time Status CT chest abdomen pelvis [[place] [id number] Cat Scan 03/08/23 15:52 Completed ] Urgent CXRP [XR chest 1V portable [id number]] Routine Exams 03/08/23 15:32 Completed CXRP [XR chest 1V portable [id number]] Routine Exams 03/15/23 09:38 Completed Sestamibi Stress Test Request Routine Exams 03/15/23 16:49 Draft NM christianne perf SPECT r/s* [id number] Routine Nuc Med 03/16/23 09:00 Completed CV renal doppler [id number] Routine Ultrasound 03/09/23 07:36 Completed CV. echo wo/w contrast [id number] Routine Ultrasound 03/09/23 07:34 Completed US renal BI* [id number] Stat Ultrasound 03/08/23 13:03 Completed Pending at discharge Category Date Time Status C-arm [place] for CVA [id number] Routine Exams 03/15/23 Taken Blood Culture Stat Lab 03/12/23 17:05 Results Sputum Culture and Gram Stain Stat Lab 03/08/23 13:38 Uncollected Sputum Culture and Gram Stain Stat Lab 03/12/23 16:37 Uncollected Radiology Impressions Chest/Abdomen/Pelvis CT 03/08/23 15:52 IMPRESSION: 1. A small layering posterior pleural effusion on the left with small amount of subjacent atelectasis left lung base. 2. [id number] cardiomegaly with extensive coronary artery calcification. 3. Small benign calcified granuloma left lung base. 4. No acute findings in the chest otherwise. IMPRESSION: 1. Extensive vascular calcification of the abdominal aorta and tributaries, without aneurysmal dilatation. This includes takeoff of the right renal artery. 2. Bilateral perinephric stranding, most likely age related with bilateral findings. Correlate clinically with urinalysis otherwise. Kidneys are otherwise unremarkable for unenhanced exam. 3. Hayes catheter within an incompletely distended urinary bladder. 4. Scattered colonic diverticulosis without CT findings diverticulitis. Laboratory Results WBC 8.17 10^3/uL (3.29-11.43) 03/16/23 04:38 RBC 2.76 10^6/uL (3.85-5.65) L 03/16/23 04:38 Hgb 8.00 g/dL (11.27-16.99) L 03/16/23 04:38 Hct 24.3 % (37-53) L 03/16/23 04:38 MCV 88.0 fl (82-101) 03/16/23 04:38 MCH 29.0 pg (27-33) 03/16/23 04:38 MCHC 32.9 g/dL (30-55) 03/16/23 04:38 RDW 14.2 % (12.1-15.1) 03/16/23 04:38 Plt Count 216 10^3/cmm (157-399) 03/16/23 04:38 MPV 9.4 fL (7.4-10.4) 03/16/23 04:38 Neut % (Auto) 64.2 % 03/16/23 04:38 Lymph % (Auto) 20.0 % 03/16/23 04:38 Gem % (Auto) 10.6 % 03/16/23 04:38 Eos % (Auto) 4.3 % 03/16/23 04:38 Baso % (Auto) 0.4 % 03/16/23 04:38 Reticulocyte % (Auto) 1.1 % (0.5-2.0) 03/08/23 12:55 Neut # (Auto) 5.25 10^3/uL (1.8-7.7) 03/16/23 04:38 Lymph # (Auto) 1.6 10^3/uL (0.8-4.8) 03/16/23 04:38 Gem # (Auto) 0.9 10^3/uL (0.2-0.9) 03/16/23 04:38 Eos # (Auto) 0.4 10^3/uL (0.0-0.8) 03/16/23 04:38 Baso # (Auto) 0.0 10^3/uL (0.0-0.1) 03/16/23 04:38 Nucleated RBC % (auto) 0 % 03/16/23 04:38 Nucleated RBCs # 0.0 /100WBC 03/16/23 04:38 PT 13.50 SECONDS (12.1-14.9) 03/08/23 12:37 INR 1.00 (0.8-1.2) 03/08/23 12:37 APTT 35.0 SECONDS (23.9-36.7) 03/08/23 12:37 Specimen Type Arterial 03/09/23 04:09 Sample Site Brachial, right 03/09/23 04:09 ABG pH 7.45 (7.35-7.45) 03/09/23 04:09 ABG pCO2 41.0 mmHg (35-45) 03/09/23 04:09 ABG pO2 74.1 mmHg (80.0-100.0) L 03/09/23 04:09 ABG PO2/FiO2 Ratio 0 03/09/23 04:09 ABG HCO3 28.5 mmol/L (22-26) H 03/09/23 04:09 ABG O2 Saturation 97.4 03/09/23 04:09 ABG Base Excess 4.1 mmol/L (-2.0-2.0) H 03/09/23 04:09 Ha Test Pos 03/09/23 04:09 A-a O2 Gradient 3.1 mmHg (5-10) L 03/09/23 04:09 Hematocrit 22.9 % (42-52) L 03/09/23 04:09 Hgb O2 Saturation 95.3 % (95-100) 03/09/23 04:09 Carboxyhemoglobin 1.5 %THgb (0.4-20.1) 03/09/23 04:09 Methemoglobin 0.7 % (0.4-1.5) 03/09/23 04:09 Total Hemoglobin 7.5 g/dL (14-18) L 03/09/23 04:09 Sodium 139.0 mmol/L (131-143) 03/09/23 04:09 Potassium 3.1 mmol/L (3.5-5.0) L 03/09/23 04:09 Glucose 157.0 mg/dL (70-115) H 03/09/23 04:09 Ionized Calcium 1.1 mmol/L (1.1-1.4) 03/09/23 04:09 O2 Delivery Device None 03/09/23 04:09 FiO2 21.0 % 03/09/23 04:09 Lead Massage Therapist ID Alewe 03/09/23 04:09 Sodium 134 mmol/L (136-145) L 03/16/23 04:38 Potassium 3.4 mmol/L (3.5-5.1) L 03/16/23 04:38 Chloride 97 mmol/L (98-107) L 03/16/23 04:38 Carbon Dioxide 26 mmol/L (22-29) 03/16/23 04:38 Anion Gap 14.4 (5-19) 03/16/23 04:38 BUN 28 mg/dL (8-23) H 03/16/23 04:38 Creatinine 6.1 mg/dL (0.7-1.2) H* 03/16/23 04:38 GFR Calculation Not Reportable 03/16/23 04:38 Glucose 105 mg/dL (65-115) 03/16/23 04:38 POC Glucose 268 mg/dL (70-110) H 03/16/23 17:04 Estimat Average Glucose 166 03/08/23 12:55 Hemoglobin A1c 7.4 % (4.0-6.0) H 03/08/23 12:55 Calculated Osmolality 284 mOsm/kg (285-295) L 03/16/23 04:38 Lactic Acid 6.1 mmol/L (0.5-2.2) H* 03/08/23 12:55 Lactic Acid (Sepsis) 6.1 mmol/L (0.5-2.2) H* 03/08/23 16:08 Calcium 8.6 mg/dL (8.5-10.5) 03/16/23 04:38 Phosphorus 3.0 mg/dL (2.5-4.5) 03/16/23 04:38 Magnesium 2.2 mg/dL (1.7-2.3) 03/16/23 04:38 Iron 60 ug/dL (59-158) 03/08/23 12:55 TIBC 274 mcg/dl 03/08/23 12:55 % Saturation 21.8 % (20-50) 03/08/23 12:55 Unsat Iron Binding 214 ug/dL (112-347) 03/08/23 12:55 Ferritin 161 ng/mL (30-400) 03/08/23 12:55 Total Bilirubin 0.2 mg/dL (0.15-1.2) 03/12/23 04:40 AST 10 U/L (0-40) 03/12/23 04:40 ALT 6 U/L (0-41) 03/12/23 04:40 Alkaline Phosphatase 44 U/L (40-130) 03/12/23 04:40 Total Protein 5.9 g/dL (6.6-8.7) L 03/12/23 04:40 Albumin 3.0 g/dL (3.5-5.2) L 03/12/23 04:40 Globulin 2.9 g/dL (1.3-4.6) 03/12/23 04:40 Triglycerides 117 mg/dL (0-150) 03/08/23 16:08 Cholesterol 82 mg/dL (0-200) 03/08/23 16:08 LDL Cholesterol, Calc 23 mg/dL (50-129) L 03/08/23 16:08 HDL Cholesterol 36 mg/dL (60-100) L 03/08/23 16:08 LDL/HDL Ratio 0.64 RATIO (0.00-3.22) 03/08/23 16:08 Cholesterol/HDL Ratio 2.28 mg/dL (1.0-5.00) 03/08/23 16:08 Lipase 36 U/L (13-60) 03/08/23 12:55 25-OH Vitamin D Total 29 ng/mL (30-100) L 03/08/23 16:08 TSH 2.95 uIU/mL (0.27-4.20) 03/08/23 16:08 PTH Intact 68.0 pg/mL (15-65) H 03/08/23 11:32 Calcium (PTH Intact) 8.7 mg/dL (8.5-10.5) 03/08/23 11:32 Urine Color Yellow (Yellow) 03/12/23 04:46 Urine Appearance Hazy (CLEAR) A 03/12/23 04:46 Urine pH 7 (5-7) 03/12/23 04:46 Ur Specific Simpson 1.010 (1.005-1.030) 03/12/23 04:46 Urine Protein 3+ (Negative) H 03/12/23 04:46 Urine Glucose (UA) Trace (Normal) H 03/12/23 04:46 Urine Ketones Negative (Negative) 03/12/23 04:46 Urine Blood 3+ (Negative) H 03/12/23 04:46 Urine Nitrate Negative (Negative) 03/12/23 04:46 Urine Bilirubin Neg (Negative) 03/12/23 04:46 Urine Urobilinogen Neg mg/dL (Negative) 03/12/23 04:46 Ur Leukocyte Esterase 2+ (Negative) H 03/12/23 04:46 Urine RBC 25-40 /hpf (0-2) H 03/12/23 04:46 Urine WBC 10-15 /hpf (0-5) H 03/12/23 04:46 Ur Squamous Epith Cells 0-4 /hpf (0-5) H 03/12/23 04:46 Amorphous Sediment Not Reportable 03/12/23 04:46 Urine Bacteria 1+ /hpf (NONE) H 03/12/23 04:46 Coarse Granular Casts 10-15 /lpf H 03/08/23 16:00 Ur Random Microalbumin 178 ug/dL (0-20) H 03/08/23 16:00 Ur Random Sodium 80 mmol/L 03/09/23 20:25 Ur Random Chloride 71 mmol/L 03/09/23 20:25 Urine Creatinine 91 mg/dL (39-259) 03/08/23 16:00 Microalb/Creat Ratio 1956 mg/dL (0-20) H 03/08/23 16:00 Serum Ketones Negative (Negative) 03/08/23 12:55 Serum Immunofixation See note 03/08/23 11:32 Complement C3 127 mg/dL (90-180) 03/08/23 16:08 Complement C4 32 mg/dL (10-40) 03/08/23 16:08 Hep Bs Antigen Non-reactive (Nonreactive) 03/08/23 22:15 Hep Bs Antibody 3.5 (11.5-1000) L 03/08/23 22:15 Blood Type O Positive 03/12/23 14:45 Rho(D) Type Rh positive 03/12/23 14:45 Antibody Screen Negative 03/12/23 14:45 Crossmatch See Detail 03/12/23 14:45 Vitals Last Vital Signs Temp 98.2 F 03/16/23 16:00 Pulse 73 03/16/23 18:40 Resp 18 03/16/23 16:00 BP 161/72 03/16/23 16:00 Pulse Ox 94 03/16/23 16:00 O2 Del Method Room Air 03/15/23 10:10 O2 Flow Rate 5 03/15/23 09:56 Discharge Plan Discharge Patient Disposition: Home Condition: Stable Prescriptions: New (DME) Blood Glucose Monitoring Kit See Rx Instructions .Route Qty: 1 0RF Rx Instructions: As directed (DME) Blood Glucose Test Strip See Rx Instructions .Route Qty: 50 0RF Rx Instructions: As directed (DME) lancets 30 gauge misc See Rx Instructions .Route Qty: 100 0RF Rx Instructions: As directed bisoprolol fumarate 5 mg Tablet 2.5 mg PO DAILY Qty: 30 0RF hydralazine 50 mg Tablet 50 mg PO BID Qty: 60 0RF amlodipine 10 mg Tablet 10 mg PO DAILY Qty: 30 0RF Continued multivitamin Tablet 1 tab PO QAM aspirin 81 mg tablet,delayed release (DR/EC) 81 mg PO QAM omega 2-whw-vxt-fish oil [Fish Oil] 1,200 (144-216) mg capsule 1 cap PO DAILY garlic 100 mg Tablet 100 mg PO DAILY Calcium 600 600 mg calcium (1,500 mg) Tablet 600 mg PO DAILY rosuvastatin 40 mg tablet 40 mg PO DAILY PreserVision AREDS 4,296 mcg-226 mg-90 mg Capsule 1 cap PO DAILY Discontinued glimepiride 4 mg tablet 4 mg PO BID 90 Days Qty: 180 0RF metformin 500 mg tablet 1,000 mg PO BID 90 Days Qty: 360 0RF valsartan 320 mg tablet 320 mg PO DAILY bisoprolol-hydrochlorothiazide 2.5-6.25 mg tablet 1 tab PO DAILY Discharge Orders: Discharge Order (Routine); Ordered 03/17/23 Ordered By: Nancy Navas Other Ambulatory Orders: DME: Miscellaneous (Order) Location: None Selected Ordered By: Nancy Navas Referrals: Dom Cedillo DO [Physician] - 4-7 days (Dr. Cedillo approved. ) Discharge Diet: As Directed Discharge Activity: Resume usual activity Patient Instructions: Dialysis Diet (DC), Hemodialysis (DC), Opioid Safety Activity Restrictions/Additional Instructions: PLEASE FOLLOW UP AT DIALYSIS Wednesday AND WEDNESDAY Discharge Attestations Time Spent in Discharge Care*: greater than 30 min Quality Metrics Clinical Quality Measures [ No reported AMI, CVA or VTE this stay] Coding Level of Care Code 24815 Total time (in minutes) for Discharge: 40 Diagnoses Anuria R34 Chronic kidney disease N18.9 Lactic acidosis E87.20 Hypoglycemia E16.2 Hyperkalemia E87.5 Metabolic acidosis E87.20 Acute renal failure N17.9 Type 2 diabetes mellitus E11.9 Diabetes mellitus ad terminal makeup operator insulin use: without ad terminal makeup operator use Hypertension I10 Hypertension type: essential hypertension Abnormal stress test R94.39
[2023-03-17 09:52] LABS: Glucose Point of Care 175 mg/dL (70-110)
[2023-03-17 11:47] LABS: Glucose Point of Care 301 mg/dL (70-110)
[2023-03-17 12:00] VITALS: BP 154/71; PULSE 70; RESP 18; TEMP 36.5; O2SAT 96
--- NOTE | 2023-03-17 12:50 | P.PN_ITS ---
Subjective Subjective: getting HD Medications: Reviewed: Yes Vitals/I&O/Wt Last Vital Signs Temp 97.7 F 03/17/23 12:00 Pulse 70 03/17/23 12:00 Resp 18 03/17/23 12:00 BP 154/71 03/17/23 12:00 Pulse Ox 96 03/17/23 12:00 O2 Del Method Room Air 03/17/23 12:00 O2 Flow Rate 5 03/15/23 09:56 03/16/23 03/17/23 03/17/23 22:59 06:59 14:59 Intake Total 1510.417 / 2760.417 480 / 480 Output Total 0 / 100 300 / 400 Balance 1510.417 / 2660.417 -300 / 2360.417 480 / 480 Weight last 48 hrs Weight 99.082 kg Weight 98.174 kg Weight 98.4 kg Physical Exam Narrative: Awake, alert no distress s1s2 rrr per report Lungs clear per report 2+ edema Urinary Catheter Management: Hayes: Cath Placed During This Visit: yes Reason for Continuing Indwelling Catheter: Other Urinary Catheter Date of Insertion: 03/08/23 Data 03/16/23 04:38 03/16/23 04:38 A&P Assessment and plan (1) Chronic kidney disease: (2) Acute renal failure: Plan 1. Acute on chronic kidney disease stage 4: Last known creatinine was 1.9 in October 2022. Now has severe LYNN with a creatinine of 8 associated with metabolic acidosis and severe hyperkalemia. -I suspect there is some progression of CKD , also may have superimposed pre renal LYNN but no renal recovery Yet . - serologies negative so far , -no renal recovery so far, HD started , -s/p tunnelled catheter placement for intermediate frame tender HD 2. Hyperkalemia: Status post HD.. Continue with low K diet 3. Metabolic acidosis: S/P bicarbonate drip, has lactic acidosis and LYNN 4. History of diabetes: No hypoglycemic, 5. History of hypertension: Blood pressure elevated , adjusting meds 6. Anemia: Monitor,ordered MELLISSA Patient evaluated using virtual cart. Time spent 25 minutes Attestations Medical Necessity Statement*: per medicien team Coding Level of Care Code Acute Code for [facility] Fwd Diagnoses Chronic kidney disease N18.9 Acute renal failure N17.9
[2023-03-17] MEDS: heparin, porcine 1,000 unit/mL INJ 10 mL 1000 UNIT IV (13:45)
[2023-03-17 15:58] VITALS: BP 154/71; PULSE 70; RESP 18; TEMP 36.5; O2SAT 96
[2023-03-17 16:03] VITALS: BP 159/69; BP 164/70; PULSE 60; PULSE 71; RESP 16; TEMP 36.5
== END 2023-03-17 16:01 | disposition home or self-care (01) | DRG 683 ==
LOC: ER 12:37 → ICU 14:22 → MEDSURG 03-10 16:29
PROVIDERS: Emergency Medicine; Hospitalist; Student in an Organized Health Care Education/Training Program; Surgery; Admitting Provider Internal Medicine; Emergency Provider Family Medicine; PCP Registered Nurse; Visit Provider Internal Medicine
PROC: 02HV33Z Insertion of Infusion Device into Superior Vena Cava, Percutaneous Approach (ICD-10-PCS; principal; 2023-03-15 14:10)
DX: N17.9 Acute kidney failure, unspecified (principal); E87.20 Acidosis, unspecified; E11.22 Type 2 diabetes mellitus with diabetic chronic kidney disease; I12.9 Hypertensive chronic kidney disease with stage 1 through stage 4 chronic kidney disease, or unspecified chronic kidney disease; N18.4 Chronic kidney disease, stage 4 (severe); E11.649 Type 2 diabetes mellitus with hypoglycemia without coma; E87.5 Hyperkalemia; D63.1 Anemia in chronic kidney disease; R94.39 Abnormal result of other cardiovascular function study; Z79.82 Long term (current) use of aspirin; Z66 Do not resuscitate; Z87.891 Personal history of nicotine dependence; M17.11 Unilateral primary osteoarthritis, right knee
CPT/HCPCS: 36415; 36416; 36430; 36600; 51702; 71045; 71250; 74176; 76770; 77001; 78452; 80048; 80051; 80053; 80061; 81001; 82009; 82044; 82274; 82306; 82310; 82330; 82436; 82728; 82805; 82962; 83036; 83540; 83550; 83605; 83690; 83735; 83970; 84100; 84300; 84443; 85014; 85018; 85025; 85045; 85610; 85730; 86160; 86334; 86706; 86850; 86900; 86920; 87040; 87086; 87340; 90935; 93005; 93017; 93975; 96365; 96366; 96372; 96375; 96376; 97110; 97161; 99291; 99292; A9500; C8929; C9113; J0360; J1644; J1815; J1940; J2543; J2704; J2785; J3010; J3490; J7030; J7070; P9016; Q3014; Q4081; Q9956

== ENCOUNTER 2023-10-27 07:53 | Outpatient (CLI) | payer MEDICARE, SELFPAY ==
--- NOTE | 2023-10-27 08:00 | USCV_ITS ---
David Logan Age: 78 Gender: M : 1945 Exam Date: 10/27/2023 08:12 Ordering Phys: Dom Cedillo DO Technologist: [facility] Exam Location: [facility] Indication: Dizziness Risk Factors: Previous Vascular Surgery: Right Brachial BP: / Left Brachial BP: / Right Left Velocity (cm/s) Spectral Plaque Velocity (cm/s) Spectral Plaque Syst/Diast Broadening Syst/Diast Broadening 75.30/ 14.10 Prox CCA 68.90 / 12.50 0.00 / 8.60 Mid CCA 49.90 / 16.00 55.60/ 10.80 Distal CCA 57.10 / 11.10 55.50/ 14.60 Prox ICA 54.00 / 11.80 54.70/ 16.20 Mid ICA 53.60 / 12.60 66.30/ 14.40 Distal ICA 44.10 / 14.90 52.60 ECA 47.40 1.20 ICA/CCA 0.90 Antegrade Vertebral Antegrade 35.40/ 5.80 cm/s 42.10/ 11.30 cm/s Tri Subclavian Bi 103.5 106.1 0 0 CONCLUSIONS Right ICA stenosis <50%. Moderate calcified atheromatous plaque right carotid bulb/ICA. Left ICA stenosis <50%. Mild atheromatous plaque left carotid bulb/ICA. Intimal thickening in the common carotid arteries and internal carotid arteries bilaterally. Normal antegrade Doppler flow noted in the right vertebral artery. Normal antegrade Doppler flow noted in the left vertebral artery. Mark Mon MD (Electronically Signed) Final Date: 27 October 2023 09:25 S
== END 2023-10-27 07:54 | disposition home or self-care (01) ==
PROVIDERS: PCP Family Medicine; Visit Provider Family Medicine
DX: R55 Syncope and collapse (principal); E11.9 Type 2 diabetes mellitus without complications; Z79.4 Long term (current) use of insulin; I65.23 Occlusion and stenosis of bilateral carotid arteries
CPT/HCPCS: 93880

== ENCOUNTER → 2024-03-13 15:41 | Outpatient (BNVA) | payer MEDICARE, SELFPAY | PROVIDERS: PCP Family Medicine; Visit Provider Podiatrist Foot & Ankle Surgery | DX: L60.3 Nail dystrophy (principal); N18.6 End stage renal disease; Z99.2 Dependence on renal dialysis; G62.9 Polyneuropathy, unspecified; E11.42 Type 2 diabetes mellitus with diabetic polyneuropathy; Z79.4 Long term (current) use of insulin | CPT/HCPCS: 11721; 99203 ==

== ENCOUNTER → 2024-05-15 14:15 | Outpatient (BNVA) | payer MEDICARE, SELFPAY | PROVIDERS: PCP Family Medicine; Visit Provider Podiatrist Foot & Ankle Surgery | DX: L60.3 Nail dystrophy (principal); N18.6 End stage renal disease; Z99.2 Dependence on renal dialysis; G62.9 Polyneuropathy, unspecified; E11.42 Type 2 diabetes mellitus with diabetic polyneuropathy; Z79.4 Long term (current) use of insulin | CPT/HCPCS: 11721 ==

== ENCOUNTER → 2024-07-17 16:00 | Outpatient (BNVA) | payer MEDICARE, SELFPAY | PROVIDERS: PCP Family Medicine; Visit Provider Podiatrist Foot & Ankle Surgery | DX: E11.42 Type 2 diabetes mellitus with diabetic polyneuropathy (principal); L60.3 Nail dystrophy; N18.6 End stage renal disease; Z99.2 Dependence on renal dialysis; G62.9 Polyneuropathy, unspecified; Z79.4 Long term (current) use of insulin | CPT/HCPCS: 11721; 73630; 99213 ==

== ENCOUNTER → 2024-09-18 15:29 | Outpatient (BNVA) | payer MEDICARE, SELFPAY | PROVIDERS: PCP Family Medicine; Visit Provider Podiatrist Foot & Ankle Surgery | DX: E11.42 Type 2 diabetes mellitus with diabetic polyneuropathy (principal); L60.3 Nail dystrophy; N18.6 End stage renal disease; Z99.2 Dependence on renal dialysis; G62.9 Polyneuropathy, unspecified; E11.29 Type 2 diabetes mellitus with other diabetic kidney complication; Z79.4 Long term (current) use of insulin | CPT/HCPCS: 11721 ==

== ENCOUNTER → 2024-11-20 15:13 | Outpatient (BNVA) | payer MEDICARE, SELFPAY | PROVIDERS: PCP Family Medicine; Visit Provider Podiatrist Foot & Ankle Surgery | DX: E11.42 Type 2 diabetes mellitus with diabetic polyneuropathy (principal); L60.3 Nail dystrophy; N18.6 End stage renal disease; Z99.2 Dependence on renal dialysis; G62.9 Polyneuropathy, unspecified; Z79.4 Long term (current) use of insulin | CPT/HCPCS: 11721 ==

== ENCOUNTER → 2025-02-07 14:33 | Outpatient (BNVA) | payer MEDICARE, SELFPAY | PROVIDERS: PCP Family Medicine; Visit Provider Podiatrist Foot & Ankle Surgery | DX: E11.42 Type 2 diabetes mellitus with diabetic polyneuropathy (principal); L60.3 Nail dystrophy; E11.8 Type 2 diabetes mellitus with unspecified complications; N18.6 End stage renal disease; Z99.2 Dependence on renal dialysis; G62.9 Polyneuropathy, unspecified; Z79.4 Long term (current) use of insulin | CPT/HCPCS: 11721 ==